=== PATIENT | female | born 1950 | race Caucasian/White ===

== ENCOUNTER → 2018-01-10 13:12 | Outpatient (CLI) | payer MEDICARE, OTHER, SELFPAY ==
[2018-01-10 13:55] LABS: Absolute Lymphocyte Count 1.48 X10^3/ul (0.83-4.51); Absolute Neutrophil Count 3.5 X10^3/uL (2.0-7.7); Basophil# 0.05 X10^3/uL; Basophil% 0.9 % (0-1); Eosinophil# 0.18 X10^3/uL; Eosinophils% 3.1 % (0-5); Hemoglobin 14.2 g/dl (12.0-15.0); Lymphocyte # 1.48 X10^3/ul (4.0); Lymphocyte % 25.8 % (19-41); Mean Corp Hgb Conc 32.3 g/gl (32-36); Mean Corpuscular Hgb 30.2 pg (27.0-32.0); Mean Corpuscular Volume 93.6 fL (81-99); Mean Platelet Vol. 9.2 fl (6.2-12.0); Monocyte# 0.54 X10^3/uL; Monocyte% 9.4 % (0-10); Neutrophil # 3.47 X10^3/uL (2.7-7.7); Neutrophil % 60.6 % (47-70); Platelet Count 191 K/mm3 (150-450); RBC Distribution Width CV 12.9 % (11.6-14.6); White Blood Count 5.7 K/mm3 (4.4-11.0)
[2018-01-10 14:01] LABS: POSITIVE COUNT NO; POSITIVE DIFFERENTIAL NO; POSITIVE MORPHOLOGY NO
[2018-01-10 14:15] LABS: Erythrocyte Sedimentation Rate 12 mm/hr (0-30)
[2018-01-10 14:25] LABS: PTHIN 104.6 pg/mL (18.4-80.1); Vitamin D,25 Hydroxy 17.9 ng/mL (29.95-100.01)
[2018-01-10 14:36] LABS: AST(SGOT) 22 U/L (15-37); Alanine Aminotransfer ALT/SGPT 25 U/L (13-56); Albumin, Serum 3.7 g/dL (3.2-5.0); Alkaline Phosphatase 78 U/L (45-117); Anion Gap 4 (5-15); BUN 17 mg/dL (7-18); BUN/Creat Ratio 23.8 RATIO (10-20); CPK Total, Creatine Kinase 92 U/L (26-192); CRP < 2.90 mg/L (0.0-3.0); Calcium,Total 8.5 mg/dL (8.5-10.1); Chloride 108 mmol/L (98-107); Creatinine, Serum 0.71 mg/dL (0.55-1.02); EST Glomerular Filtration Rate 87 mL/min (>60); Est Glom Filt Rate - Afr Amer 105 mL/min (>60); Globulin 3.7 g/dL (2.2-4.2); Glucose 91 mg/dL (74-106); Potassium 4.3 mmol/L (3.5-5.1); Protein, Total 7.4 g/dL (6.4-8.2); Rheumatoid Factor < 10.0 IU/mL (<15); Sodium Level 139 mmol/L (136-145); Thyroid Stim Hormone (TSH) 4.43 uIU/mL (0.358-3.74)
[2018-01-12 11:47] LABS: ANTINUCLEAR ANTIBODIES DIRECT Positive (Negative)
[2018-01-14 09:37] LABS: Anti-Centromere B Ab <0.2 AI (0.0-0.9); Anti-Chromatin <0.2 AI (0.0-0.9); Anti-Jo <0.2 AI (0.0-0.9); Anti-Scleroderma-70 AB <0.2 AI (0.0-0.9); Anti-ribosomal P Antibodies <0.2 AI (0.0-0.9); RNP Ab <0.2 AI (0.0-0.9); SJOGREN'S Anti-SS-A test < 0.2 AI (0.0-0.9); SJOGREN'S Anti-SS-B test < 0.2 AI (0.0-0.9); Smith Ab <0.2 AI (0.0-0.9); Smith/RNP Ab <0.2 AI (0.0-0.9)
[2018-01-14 13:15] LABS: Anti-dsDNA Ab 11 IU/mL (0-9)
== END ==
PROVIDERS: Family Provider Family Medicine; PCP Family Medicine; Visit Provider Family Medicine
DX: M25.50 Pain in unspecified joint (principal); R76.8 Other specified abnormal immunological findings in serum; E55.9 Vitamin D deficiency, unspecified; R53.83 Other fatigue
CPT/HCPCS: 36415; 80053; 82306; 82550; 83970; 84443; 85025; 85652; 86038; 86140; 86225; 86235; 86431

== ENCOUNTER → 2018-03-30 15:38 | Outpatient (CLI) | payer MEDICARE, OTHER, SELFPAY ==
--- NOTE | 2018-03-30 15:40 | BI_ITS ---
MAMMOGRAPHY - BILATERAL SCREENING REASON FOR EXAM: Female, 67 years old. Routine annual screening examination. PERTINENT HISTORY: Aunt with breast cancer. TECHNIQUE: Digital bilateral breast saima (3D mammographic acquisition) in the CC and MLO projections. 2-D mediolateral oblique (MLO) and craniocaudad (CC) views of both breasts were obtained. CAD: Full Field Digital Mammography with Computer Added Detection was performed. COMPARISON: Comparison is made with prior study dated March 24, 2017 and March 11, 2016. FINDINGS: Breast Composition: There are scattered areas of fibroglandular density. There are no dominant masses or suspicious calcifications. No other significant abnormalities are identified. There has been no significant change since the prior study. BI/SCREENING MAMM (CAD), BILAT IMPRESSION: Stable bilateral screening mammogram. Yearly follow-up mammogram recommended. (A) ASSESSMENT CATEGORY: BIRADS Category 1: Negative. A letter regarding these results will be sent to the patient by the facility within 30 days. Approximately 10% of breast cancers are not detected by mammography. A normal mammogram should not delay biopsy of a clinically suspicious abnormality. [id number] Electronically Signed: Philip Bose MD at 8:05 EDT Tel [phone], Service support ,
== END ==
PROVIDERS: Family Provider Family Medicine; PCP Family Medicine; Visit Provider Obstetrics & Gynecology
DX: Z12.31 Encounter for screening mammogram for malignant neoplasm of breast (principal)
CPT/HCPCS: 77063; 77067

== ENCOUNTER → 2018-04-04 10:44 | Outpatient (CLI) | payer MEDICARE, OTHER, SELFPAY ==
--- NOTE | 2018-04-04 10:47 | US_ITS ---
STUDY: ULTRASOUND TRANSVAGINAL CLINICAL: Female, 67 years old. Postmenopausal bleeding. TECHNIQUE: Transvaginal COMPARISON: None. FINDINGS: The uterus measures 4.6 x 3.4 x 2.1 cm. Anteverted position. Midline. Normal uterine cervix. Calcification within the anterior fundal myometrium measures 17 mm, likely a small calcified fibroid. The endometrium measures 3.2 mm in thickness, and is normal in echotexture. There is however a very small amount of free fluid within the endometrial canal. There is no demonstrated endometrial mass. The ovaries are not well seen. There is no visible adnexal mass or suspicious cyst. No cul-de-sac or adnexal free fluid. US/Transvaginal Non- IMPRESSION: Minimal pocket of fluid within the endometrial canal likely reflecting blood products in the setting of dysfunctional uterine bleeding. Otherwise normal thickness and echotexture of the endometrium, no suspicious features. No evidence of endometrial hypertrophy, mass, polyp, or submucosal fibroid. Electronically Signed: Santana Padgett, at 13:16 EDT Tel , Service support ,
== END ==
PROVIDERS: Family Provider Family Medicine; PCP Family Medicine; Visit Provider Obstetrics & Gynecology
DX: N95.0 Postmenopausal bleeding (principal)
CPT/HCPCS: 76830

== ENCOUNTER 2018-05-06 07:42 | Day surgery (SDC) | payer MEDICARE, OTHER, SELFPAY ==
[2018-05-02 13:30] LABS: Hematocrit 44.6 % (37-47); Hemoglobin 14.9 g/dl (12.0-15.0); Mean Corp Hgb Conc 33.4 g/gl (32-36); Mean Corpuscular Hgb 30.7 pg (27.0-32.0); Mean Corpuscular Volume 91.8 fL (81-99); Mean Platelet Vol. 10.4 fl (6.2-12.0); Platelet Count 200 K/mm3 (150-450); RBC Distribution Width CV 12.5 % (11.6-14.6); RBC Distribution Width SD 41.9 fl (35.1-43.9); Red Blood Count 4.86 M/mm3 (4.2-5.4)
[2018-05-02 13:37] LABS: Scan Indicated on CBC? Y/N NO
[2018-05-02 13:46] LABS: International Normalized Ratio 0.9; Prothrombin Time (Protime)PT. 12.5 SECONDS (11.7-14.9)
[2018-05-02 13:53] LABS: Partial Thromboplast Time 32.1 Seconds (24.1-36.2)
[2018-05-06 08:08] VITALS: BP 124/82; PULSE 70; RESP 18; TEMP 36.1; O2SAT 99; BMI 56.4
--- NOTE | 2018-05-06 09:20 | EMB_PTH ---
PATIENT: HETAL SINGH LOC: [facility] [place] U#:[id number] AGE/SX: 67/F ROOM: RE05/06/[address]: Dr. Shiloh Valencia MD : 1950 BED: DIS: 05/06/2018 SPEC #: [id number] RECD: 05/06/18 11:13 STATUS: LUCERO JEAN #: [id number] SILVIA: 05/06/18 09:[address]: Shiloh Valencia DEPT: SURGICAL PATHOLOGY RECD BY: Santana Montenegro ENTERED: 05/06/18 12:03 SP TYPE: ENDOM BX/C DAMION DR: Dr. Josias Knowles MD Tissues: Endometrium, NOS Procedures: Surgery Specimen Level IV HEADER OPERATION: Hysteroscopy, dilation and curettage PRE-OP DIAGNOSIS: Postmenopausal bleeding TISSUE SUBMITTED: Endometrium MICROSCOPIC DIAGNOSIS Endometrium, dilation and curettage: Scant strips of benign endometrial epithelium, consistent with atrophic endometrium. A fragment of benign endometrial polyp with cystic change. Scant fragment of benign ectocervical epithelium and mucous. SUZY:drew 05/09/18 MICROSCOPIC DESCRIPTION Slides are reviewed. GROSS DESCRIPTION Received in fixative is one container labeled with the patient's name and designated endometrium. The specimen consists of multiple fragments of hemorrhagic soft tissue that in aggregate measure 0.5 x 0.5 x 0.1 cm. The specimen is totally submitted in one cassette. / SUZY:drew 05/06/18 TC:5 CPT: 31589
--- NOTE | 2018-05-06 09:50 | PCM.OPRPT ---
Problem List (1) Postmenopausal bleeding Status: Acute Report of Operation Date of Procedure: 05/06/18 Pre-Operative Diagnosis: Postmenopausal bleeding Post-Operative Diagnosis: Postmenopausal bleeding Surgery/Procedure Performed:: D and C with diagnostic hysteroscopy and polypectomy Description of Surgical Findings:: The uterus was sounded to 7-8 cm in position. No cavity it was noted that a polyp-like. Follow-up right and the endometrium. The like were unable to relocate on replacement of hysteroscope. It appeared initially as if there were areas in the endometrium had a medical coloring. Again upon reinsertion of atrium were unable to visualize and actually area. Type of Anesthesia:: Local, MAC Anesthesiologist: Yann Hernandez Special Medications: 10 cc of 1% lidocaine Specimen's removed: endometrium Drains: None Estimated Blood Loss (mL): Minimal Fluids Replaced: Lactated Ringer's Description of Procedure: Patient presented to the OR in a n.p.o. Patient was placed on the surgical bed and underwent a MAC. Is position via the patient was in the normal sterile fashion. A weighted speculum was placed to the vaginal region. The anterior lip of the cervix was grasped and elevated with a single-tooth tenaculum 10 cc of 1% lidocaine was distributed. Procedure well the fully dilated in the uterine 7-8 cm once the cervix was adequately dilated a 5 mm hysteroscope, hysteroscope was drilled cavity. Structure was noted immediately in the posterior surface of the endocervical atrial cavity. Sharp curettage of the entire endometrial cavity polyp forceps actually removed that polyp-like material. Upon placement of the hysteroscope into the endometrial cavity once again, the notation of removal was noted also ran into what appeared to be a wire-like structure tissue around it and was freely floating in the endometrial removed open placement of forceps hysteroscope into the endometrial cavity revealed that piece of wire like density disappeared. Investigation was around the cavity occurred with no location for the. Light brushing over the endometrium did not reveal and eventually this to cause too much fluid instruments were removed from the uterus hemostasis was noted. Sponge and instrument counts were correct ?2 Grafts/Implants Used: None - Complications None - Admit VTE Documentation VTE Present on Admission: No VTE Mechan Device Prophylaxis: SCD's VTE Pharm Prophylaxis ordered?: No Reason prophylaxis not ordered:: Treatment Not Indicated
--- NOTE | 2018-05-06 09:57 | PCM.DC.D&C ---
Discharge Diet: No Restrictions - increase water intake to 100 ounces daily x 72 hours Discharge Activity: Return to Normal Activity, May Shower, May Take a Tub Bath - in 2 weeks. Return to work on:: 05/09/18 May shower in (days): 0 - TODAY May resume sexual activity in: 1 week Weight Bearing Status: Full weight bearing Lifting Restrictions: none Additional Activity Instructions:: Ambulate often the week following surgery Call your doctor if your incision/area has: Sudden Increased Bleeding Call your doctor if you observe: Fever of 101 or Higher, Inability to urinate, Inability to have a bowel movement, Using more than one pad per hour Allergies/Adverse Reactions: Allergies Tetracyclines Adverse Reaction (Verified 04/29/18 10:09) Nausea Medications to take at Discharge NK [NK] 04/29/18 Primary Care Physician: Josias Knowles MD [Primary Care Provider] - Please Follow Up With: Shilho Valencia MD When: 2 weeks
[2018-05-06 09:58] VITALS: BP 101/74; BP 124/82; PULSE 88; RESP 16; TEMP 36.4; O2SAT 100
[2018-05-06 10:05] VITALS: BP 124/82; BP 97/63; PULSE 65; RESP 16; O2SAT 99
[2018-05-06 10:10] VITALS: BP 106/69; BP 124/82; PULSE 65; RESP 16; O2SAT 99
[2018-05-06 10:15] VITALS: BP 104/71; BP 124/82; PULSE 65; RESP 14; TEMP 36.3; O2SAT 100
[2018-05-06 10:52] LABS: Anion Gap 2 (5-15); BUN 8 mg/dL (7-18); Calcium,Total 8.6 mg/dL (8.5-10.1); Chloride 109 mmol/L (98-107); Creatinine, Serum 1.34 mg/dL (0.55-1.02); EST Glomerular Filtration Rate 42 mL/min (>60); Est Glom Filt Rate - Afr Amer 51 mL/min (>60); Estimated Creatinine Clearance 38.14 ml/min; Glucose 90 mg/dL (74-106); Potassium 4.5 mmol/L (3.5-5.1); Sodium Level 140 mmol/L (136-145)
--- NOTE | 2018-05-06 10:56 | PCM.PN.BLA ---
Progress Note 240cc normal saline deficit from hysteroscopy. BMP for electrolyte exam obtained due to age. Stable.
[2018-05-06 10:58] VITALS: BP 124/82
== END 2018-05-06 11:06 | disposition home or self-care (01) ==
LOC: SDC 07:43 → AC 07:44
PROVIDERS: Family Provider Family Medicine; PCP Family Medicine; Visit Provider Obstetrics & Gynecology
PROC: 0UDB8ZZ Extraction of Endometrium, Via Natural or Artificial Opening Endoscopic (ICD-10-PCS; CPT 58558; principal; 2018-05-06 09:10)
DX: N84.0 Polyp of corpus uteri (principal); F32.9 Major depressive disorder, single episode, unspecified; F17.200 Nicotine dependence, unspecified, uncomplicated; Z87.42 Personal history of other diseases of the female genital tract; Z86.2 Personal history of diseases of the blood and blood-forming organs and certain disorders involving the immune mechanism; Z79.899 Other long term (current) drug therapy
CPT/HCPCS: 58558; 36415; 80048; 85027; 85610; 85730; 88305; J7120; J2405

== ENCOUNTER → 2018-06-02 13:03 | Outpatient (CLI) | payer MEDICARE, OTHER, SELFPAY ==
--- NOTE | 2018-06-02 13:10 | RAD_ITS ---
STUDY: X-RAY CHEST REASON FOR EXAM: Female, 67 years old. Pre-op bladder resuspension. TECHNIQUE: Frontal and lateral views of the chest. COMPARISON: None. FINDINGS: The lungs are clear and expanded. There is no demonstrated pleural abnormality. Normal size heart. Normal mediastinum and elayne. Normal visualized pulmonary arteries. Normal visualized aortic arch and descending thoracic aorta. Normal visualized thoracic spine. Normal visualized ribs, clavicles, and shoulders. There is no demonstrated abnormality of the visualized soft tissue structures of the upper abdomen. RAD/Chest PA and Lateral IMPRESSION: Normal x-ray examination of the chest. Electronically Signed: Shiraz Guerin MD at 19:35 EDT , Service support ,
== END ==
PROVIDERS: Family Provider Family Medicine; PCP Family Medicine; Visit Provider Nurse Practitioner
DX: Z01.818 Encounter for other preprocedural examination (principal); R05 Cough
CPT/HCPCS: 71046

== ENCOUNTER 2018-06-07 08:21 | Day surgery (SDC) | payer MEDICARE, OTHER, SELFPAY ==
--- NOTE | 2018-06-01 10:56 | EKG12_ITS ---
Test Reason : PRE OP Blood Pressure : / mmHG Vent. Rate : 069 BPM Atrial Rate : 069 BPM P-R Int : 158 ms QRS Dur : 068 ms QT Int : 392 ms P-R-T Axes : 072 059 057 degrees QTc Int : 420 ms Normal sinus rhythm Biatrial enlargement Abnormal ECG Confirmed by RUSH DAVISON, PITER ([id number]), deputy editor in chief CHARLOTTE GRAHAM ([id number]) on 06/03/2018 1:43:34 PM Referred By: Bibi Coy Confirmed By:PITER BEVERLY MD
[2018-06-01 17:18] LABS: Hematocrit 43.4 % (37-47); Hemoglobin 14.6 g/dl (12.0-15.0); Mean Corp Hgb Conc 33.6 g/gl (32-36); Mean Corpuscular Hgb 30.7 pg (27.0-32.0); Mean Corpuscular Volume 91.4 fL (81-99); Mean Platelet Vol. 10.3 fl (6.2-12.0); Platelet Count 212 K/mm3 (150-450); RBC Distribution Width CV 12.7 % (11.6-14.6); RBC Distribution Width SD 41.9 fl (35.1-43.9); Red Blood Count 4.75 M/mm3 (4.2-5.4); White Blood Count 5.6 K/mm3 (4.4-11.0)
[2018-06-01 17:24] LABS: Scan Indicated on CBC? Y/N NO
[2018-06-01 18:42] LABS: Anion Gap 7 (5-15); BUN 12 mg/dL (7-18); BUN/Creat Ratio 15.2 RATIO (10-20); Calcium,Total 9.3 mg/dL (8.5-10.1); Chloride 107 mmol/L (98-107); Creatinine, Serum 0.79 mg/dL (0.55-1.02); EST Glomerular Filtration Rate 77 mL/min (>60); Est Glom Filt Rate - Afr Amer 94 mL/min (>60); Glucose 92 mg/dL (74-106); Potassium 3.8 mmol/L (3.5-5.1); Sodium Level 143 mmol/L (136-145)
[2018-06-07 08:40] VITALS: BP 136/71; PULSE 78; RESP 16; TEMP 36.1; O2SAT 98; BMI 25.0
--- NOTE | 2018-06-07 09:41 | PCM.DC.URO ---
Discharge Activity: May not drive while taking narcotic pain medications., May Shower May resume sexual activity in: 4-6 weeks Lifting Restrictions: no more than 5 pounds for 4 weeks Additional Activity Instructions:: no exercise or strenuous activity Call your doctor if your incision/area has: Sudden Increased Bleeding Call your doctor if you observe: Fever of 101 or Higher, Inability to urinate, Inability to have a bowel movement, Using more than one pad per hour, Shortness of breath, Chest pain Allergies/Adverse Reactions: Allergies Tetracyclines Adverse Reaction (Verified 05/31/18 08:54) Nausea Medications to take at Discharge NK [NK] 04/29/18 Primary Care Physician: Josias Knowles MD [Primary Care Provider] - Test Results: Test results from this visit will be discussed in further detail at your follow-up appointment, if applicable. Please Follow Up With: Bibi Coy MD - in 2 weeks, call for appt
--- NOTE | 2018-06-07 09:44 | DCINST_ITS ---
Discharge Activity: May not drive while taking narcotic pain medications., May Shower May resume sexual activity in: 4-6 weeks Lifting Restrictions: no more than 5 pounds for 4 weeks Additional Activity Instructions:: no exercise or strenuous activity Call your doctor if your incision/area has: Sudden Increased Bleeding Call your doctor if you observe: Fever of 101 or Higher, Inability to urinate, Inability to have a bowel movement, Using more than one pad per hour, Shortness of breath, Chest pain Allergies/Adverse Reactions: Allergies Tetracyclines Adverse Reaction (Verified 05/31/18 08:54) Nausea Medications to take at Discharge NK [NK] 04/29/18 Primary Care Physician: Josias Knowles MD [Primary Care Provider] - Test Results: Test results from this visit will be discussed in further detail at your follow- up appointment, if applicable. Please Follow Up With: Bibi Coy MD - in 2 weeks, call for appt
[2018-06-07] MEDS: Cefazolin 2 GM in 0.9% Normal Saline 100 ML IV (09:51)
[2018-06-07 10:35] VITALS: BP 123/72; BP 136/71; PULSE 79; RESP 15; TEMP 36.4; O2SAT 96
--- NOTE | 2018-06-07 10:44 | PCM.IMDPSTOP ---
Immediate Post-Op Note Date of Procedure: 06/07/18 Primary Surgeon/Physician: Bibi Coy MD leather goods sales representative: Bibi Coy Pre-Operative Diagnosis: stress urinary incontinence, urethral hypermobility Post-Operative Diagnosis: same Surgery/Procedure Performed:: midurethral sling (Altis), cystoscopy Description of Surgical Findings:: Mid urethral sling was inserted without difficulty with no complication. Estimated Blood Loss: 10cc Specimen's removed: none Type of Anesthesia:: General - Admit VTE Documentation VTE Mechan Device Prophylaxis: SCD's Reason prophylaxis not ordered:: Treatment Not Indicated
[2018-06-07 10:45] VITALS: BP 123/95; BP 136/71; PULSE 78; RESP 16; O2SAT 98
--- NOTE | 2018-06-07 10:46 | PCM.OPRPT ---
Problem List (1) GARY (stress urinary incontinence, female) Status: Acute (2) Urethral hypermobility Status: Acute Report of Operation Date of Procedure: 06/07/18 Pre-Operative Diagnosis: stress urinary incontinence, urethral hypermobility Post-Operative Diagnosis: same Surgery/Procedure Performed:: midurethral sling (Altis), cystoscopy Description of Surgical Findings:: Mid urethral sling was inserted without difficulty with no complication. telecommunications equipment installer: Bibi Coy Type of Anesthesia:: General Specimen's removed: none Estimated Blood Loss (mL): 10cc Description of Procedure: Patient is a 67-year-old female who presented to the office with mixed urinary incontinence. After discussing risks, benefits and alternatives she agreed to proceed with surgical intervention for treatment of her stress urinary incontinence. The patient was taken to the operating room placed on the operating room table anesthesia monitored the head neck area IV access of vital signs throughout the case. Once anesthesia was appropriately administered the patient was placed into the dorsal lithotomy and Trendelenburg position. She was prepped and draped in usual sterile fashion. An 18 Irish Higgins catheter was inserted into the urinary bladder and the urine was drained. At this time using a Venegas retractor the mid urethra was identified and injected submucosally with 1% lidocaine with epinephrine in a 1:100,000 ratio. 4 cc were injected. At this time and midline incision approximately 1.5 cm in length was then made and both sharp and blunt dissection ensued until the obturator complexes were palpable bilaterally. At this time the sling was inserted using the trochars. It was tightened without difficulty and was manipulated until it was in a good position against the urethra and a flat position. The tensioning suture was then cut and the midline incision was closed using running interlocking 2-0 Vicryl suture. At this time the Higgins was removed and a cystourethroscopy was performed revealing no entrance into the urinary bladder of any foreign object including stitch or mesh. The patient's anatomy was normal. Her bladder was left somewhat full and the scope was removed. She was then awakened and taken to the recovery room in a good condition where she will void and a postvoid residual will be obtained. - Complications None - Admit VTE Documentation VTE Mechan Device Prophylaxis: SCD's Reason prophylaxis not ordered:: Treatment Not Indicated
[2018-06-07 10:55] VITALS: BP 114/73; BP 136/71; PULSE 78; RESP 16; TEMP 37.1; O2SAT 100
[2018-06-07] MEDS: Acetaminophen 325 MG Tablet PO (11:32)
[2018-06-07] MEDS: oxyCODONE 5 MG Tablet PO (11:32)
[2018-06-07 12:39] VITALS: BP 112/67; BP 136/71; PULSE 69; RESP 16; TEMP 36.6; O2SAT 96
== END 2018-06-07 12:41 | disposition home or self-care (01) ==
LOC: SDC 08:22 → AC 08:22
PROVIDERS: Family Provider Family Medicine; PCP Family Medicine; Visit Provider Urology
PROC: 0TJB8ZZ Inspection of Bladder, Via Natural or Artificial Opening Endoscopic (ICD-10-PCS; CPT 57288; principal; 2018-06-07 09:40)
DX: N39.46 Mixed incontinence (principal); N36.41 Hypermobility of urethra; R35.1 Nocturia; R35.0 Frequency of micturition; F17.210 Nicotine dependence, cigarettes, uncomplicated; Z86.2 Personal history of diseases of the blood and blood-forming organs and certain disorders involving the immune mechanism
CPT/HCPCS: 00860; 57288; 36415; 80048; 85027; 93005; J7120; J2405

== ENCOUNTER → 2018-11-04 11:03 | Outpatient (CLI) | payer MEDICARE, OTHER, SELFPAY ==
[2018-11-04 12:11] LABS: Erythrocyte Sedimentation Rate 10 mm/hr (0-30)
[2018-11-04 12:15] LABS: Absolute Lymphocyte Count 1.35 X10^3/ul (0.83-4.51); Absolute Neutrophil Count 4.5 X10^3/uL (2.0-7.7); Basophil# 0.07 X10^3/uL; Basophil% 1.1 % (0-1); Eosinophil# 0.13 X10^3/uL; Hematocrit 45.1 % (37-47); Hemoglobin 14.7 g/dl (12.0-15.0); Lymphocyte # 1.35 X10^3/ul (4.0); Lymphocyte % 20.6 % (19-41); Mean Corp Hgb Conc 32.6 g/gl (32-36); Mean Corpuscular Hgb 30.9 pg (27.0-32.0); Mean Corpuscular Volume 94.9 fL (81-99); Mean Platelet Vol. 9.8 fl (6.2-12.0); Monocyte# 0.46 X10^3/uL; Neutrophil # 4.53 X10^3/uL (2.7-7.7); Neutrophil % 69.1 % (47-70); Platelet Count 200 K/mm3 (150-450); RBC Distribution Width CV 12.9 % (11.6-14.6); RBC Distribution Width SD 43.8 fl (35.1-43.9); Red Blood Count 4.75 M/mm3 (4.2-5.4); White Blood Count 6.6 K/mm3 (4.4-11.0)
[2018-11-04 12:16] LABS: POSITIVE COUNT NO; POSITIVE DIFFERENTIAL NO; POSITIVE MORPHOLOGY NO
[2018-11-04 12:54] LABS: ALB/GLOB Ratio 1.1 RATIO (0.9-2.4); AST(SGOT) 17 U/L (15-37); Alanine Aminotransfer ALT/SGPT 21 U/L (13-56); Albumin, Serum 3.7 g/dL (3.2-5.0); Alkaline Phosphatase 74 U/L (45-117); Anion Gap 8 (5-15); BUN 17 mg/dL (7-18); CRP < 2.90 mg/L (0.0-3.0); Calcium,Total 8.7 mg/dL (8.5-10.1); Chloride 106 mmol/L (98-107); Creatinine, Serum 0.74 mg/dL (0.55-1.02); EST Glomerular Filtration Rate 83 mL/min (>60); Est Glom Filt Rate - Afr Amer 101 mL/min (>60); Globulin 3.4 g/dL (2.2-4.2); Glucose 96 mg/dL (74-106); Potassium 4.3 mmol/L (3.5-5.1); Protein, Total 7.1 g/dL (6.4-8.2); Sodium Level 141 mmol/L (136-145); Thyroid Stim Hormone (TSH) 2.39 uIU/mL (0.358-3.74)
== END ==
PROVIDERS: Family Provider Family Medicine; PCP Family Medicine; Referring Provider Family Medicine; Visit Provider Family Medicine
DX: M25.50 Pain in unspecified joint (principal); R29.898 Other symptoms and signs involving the musculoskeletal system
CPT/HCPCS: 36415; 80053; 84443; 85025; 85652; 86140

== ENCOUNTER → 2018-11-18 15:27 | Outpatient (CLI) | payer MEDICARE, OTHER, SELFPAY ==
--- NOTE | 2018-11-18 15:31 | RAD_ITS ---
STUDY: X-RAY CHEST REASON FOR EXAM: Female, 67 years old. Acute bronchitis. TECHNIQUE: PA and lateral views of the chest. COMPARISON: 06/02/2018. FINDINGS: The lungs again are hyperinflated. No focal infiltrate is seen. There is no demonstrated pleural abnormality. Normal size heart. Normal mediastinum and elayne. Normal visualized pulmonary arteries. There is atherosclerotic tortuosity of the aortic arch and descending thoracic aorta. There are degenerative changes of the visualized thoracic spine. There is mild scoliosis. There is fracture of the left clavicle appears to be old. There is no demonstrated abnormality of the visualized soft tissue structures of the upper abdomen. RAD/Chest PA and Lateral IMPRESSION: No active pulmonary disease. Electronically Signed: Lauri Soto MD at 15:26 EST Tel , Service support ,
== END ==
PROVIDERS: Family Provider Family Medicine; PCP Family Medicine; Referring Provider Family Medicine; Visit Provider Family Medicine
DX: J02.9 Acute pharyngitis, unspecified (principal)
CPT/HCPCS: 71046

== ENCOUNTER → 2019-04-24 | Outpatient (CLI) | payer MEDICARE, OTHER, SELFPAY ==
--- NOTE | 2019-04-24 13:02 | BI_ITS ---
MAMMOGRAPHY - BILATERAL SCREENING REASON FOR EXAM: Female, 68 years old. Routine annual screening examination. PERTINENT HISTORY: Aunt with breast cancer. TECHNIQUE: Digital bilateral breast miguel ángel (3D mammographic acquisition) in the CC and MLO projections. 2-D mediolateral oblique (MLO) and craniocaudad (CC) views of both breasts were obtained. CAD: Full Field Digital Mammography with Computer Added Detection was performed. COMPARISON: Comparison is made with prior examination dated March 30, 2018 and March 24, 2017. FINDINGS: Breast Composition: There are scattered areas of fibroglandular density. There are no dominant masses or suspicious calcifications. No other significant abnormalities are identified. There has been no significant change since the prior study. BI/SCREEN MAMM (CAD) W/MIGUEL ÁNGEL BILAT IMPRESSION: Stable bilateral screening mammogram. Yearly follow-up mammogram recommended. (A) ASSESSMENT CATEGORY: BIRADS Category 1: Negative. A letter regarding these results will be sent to the patient by the facility within 30 days. Approximately 10% of breast cancers are not detected by mammography. A normal mammogram should not delay biopsy of a clinically suspicious abnormality. [id number] Electronically Signed: Philip Bose, at 14:06 EDT , Service support ,
== END | disposition home or self-care (01) ==
LOC: OPBI 13:00
PROVIDERS: Family Provider Family Medicine; PCP Family Medicine; Referring Provider Obstetrics & Gynecology; Visit Provider Obstetrics & Gynecology
DX: Z12.31 Encounter for screening mammogram for malignant neoplasm of breast (principal)
CPT/HCPCS: 77063; 77067

== ENCOUNTER 2019-09-27 15:19 | Emergency (ER) | payer MEDICARE, OTHER, SELFPAY ==
[2019-09-27 15:19] VITALS: BP 141/96; PULSE 91; RESP 16; TEMP 36.7; O2SAT 97; BMI 24.5
[2019-09-27 15:22] VITALS: BP 141/96; PULSE 91; RESP 16; TEMP 36.7; O2SAT 97
--- NOTE | 2019-09-27 15:55 | RAD_ITS ---
STUDY: X-RAY CHEST REASON FOR EXAM: Female, 68 years old. Cough. TECHNIQUE: PA and lateral views of the chest. COMPARISON: November 18, 2018 FINDINGS: The lungs remain hyperinflated. There is no new focal consolidation. There are stable prominent interstitial markings. Normal size heart. Normal mediastinum and elayne. Normal visualized pulmonary arteries. Normal visualized aortic arch and descending thoracic aorta. Normal visualized thoracic spine. Stable visualized ribs, clavicles, and shoulders. There are stable coarse calcifications projecting over the right axilla. There is no demonstrated abnormality of the visualized soft tissue structures of the upper abdomen. RAD/Chest PA and Lateral IMPRESSION: No acute cardiopulmonary process. Electronically Signed: Kassie Camacho MD at 16:12 EST Tel , Service support ,
[2019-09-27] MEDS: predniSONE 20 MG Tablet 40 MG PO (15:56)
[2019-09-27 16:15] VITALS: PULSE 70; RESP 20
[2019-09-27] MEDS: Ipratropium/Albuterol Sulfate 3 ML AMPUL.NEB INHALATION (16:18)
--- NOTE | 2019-09-27 16:22 | ED.DCSUM_ITS ---
- ER Visit Summary Date of Service: 09/27/19 Chief Complaint: Cough] History of Present Illness: The patient is a 68 F [presents to the emergency department with cough dysarthria 4 days ago. Patient had fever at home up to 102 but she states that her fever broke last night. Patient has been at times bringing up some white phlegm. Patient states that her daughter and granddaughter both diagnosed recently with bronchitis and viral infection. Patient is a smoker. She has no metal history otherwise. Patient states the cough is been keeping her up at night she is been having hard time sleeping. She does have an inhaler that she had used from the last time she had bronchitis.] Physical Examination: [HEENT-PERRLA, EOMI. Cranial nerves II through XII grossly intact. TMs clear. Mucous membranes moist. No adenopathy. Cardiovascular-regular rate and rhythm without murmur or ectopy Lungs-good aeration bilaterally. Patient has some [place] with Tory wheezes bilaterally. No tachypnea. No accessory muscle use or retractions. Conversational dyspnea. Abdomen-normoactive bowel sounds, soft, nontender, no rebound or rigidity, no peritoneal signs. Extremities-intact ?4, normal range of motion, normal pulses, atraumatic] Test Results: Chest x-ray obtained was normal.] Emergency Department Course and Treatment: [Patient was given a DuoNeb aerosol and a dose of prednisone 40 mill grams p.o.] Treatment Plan: [Will be given a prescription for prednisone and Tessalon Perles. Patient advised to continue with her inhaler as needed for wheezing. Patient to follow-up with her primary care physician within next 3 to 5 days. Patient advised to return if increasing shortness of breath or condition should worsen anyway.] Disposition: [Discharged home in stable condition.] Impression: [Asthmatic bronchitis-viral] This note was generated with [employer] software. It may contain incorrect words, spelling, and punctuation that were not noted in review of the chart prior to signing ED Disposition - Plan for ED Patient: Referrals: Josias Knowles MD [Primary Care Provider] -
--- NOTE | 2019-09-27 16:25 | ED.DEP ---
ED Disposition - Plan for ED Patient: Instructions: BRONCHITIS, No Antibiotic (Adult), BRONCHITIS with Wheezing (Adult) Prescriptions: Prednisone [Deltasone] 20 mg PO BID #10 tab Prescription Printed Benzonatate [Tessalon Perle] 200 mg PO TID PRN PRN #20 cap PRN Reason: Cough Prescription Printed Referrals: Josias Knowles MD [Primary Care Provider] - 3-5 Days
--- NOTE | 2019-09-27 16:51 | ED.RN ---
DISCHARGE INSTRUCTIONS GIVEN TO AND REVIEWED WITH PATIENT, PATIENT DENIES QUESTIONS OR CONCERNS AND VOICES UNDERSTANDING OF DISCHARGE INSTRUCTIONS. PT AMBULATES OUT OF ROOM WITHOUT DIFFICULTY.
== END 2019-09-27 16:51 | disposition home or self-care (01) ==
LOC: ED 16:10
PROVIDERS: Emergency Provider Emergency Medicine; Family Provider Family Medicine; PCP Family Medicine
DX: J45.909 Unspecified asthma, uncomplicated (principal); Z72.0 Tobacco use
CPT/HCPCS: 71046; 94640; 99283

== ENCOUNTER → 2019-11-13 11:28 | Outpatient (CLI) | payer MEDICARE, OTHER, SELFPAY ==
[2019-11-13 14:44] LABS: Free T3 3.1 pg/mL (2.18-3.98); Thyroid Stim Hormone (TSH) 2.96 uIU/mL (0.358-3.74)
== END ==
PROVIDERS: Family Provider Family Medicine; PCP Family Medicine; Referring Provider Nurse Practitioner Adult Health; Visit Provider Nurse Practitioner Adult Health
DX: R53.83 Other fatigue (principal)
CPT/HCPCS: 36415; 84443; 84481

== ENCOUNTER → 2019-12-13 13:25 | Outpatient (CLI) | payer MEDICARE, OTHER, SELFPAY ==
--- NOTE | 2019-12-13 13:30 | RAD_ITS ---
STUDY: X-RAY - PELVIS REASON FOR EXAM: Female, 69 years old. pelvis broken in 2015; continued pain and pressure since TECHNIQUE: One view of the pelvis was obtained. COMPARISON: None. FINDINGS: There is a non-specific bowel gas pattern. Normal visualized soft tissue structures. There is stabilization with 2 screws of the SI joints. There is a fixation plate with multiple screws traversing the left and right inferior and superior pubic rami. Normal pubic symphysis. Normal ischial tuberosities. Normal visualized right femoral head. Normal right acetabulum. Normal right hip joint. Normal visualized left femoral head. Normal left acetabulum. Normal left hip joint. RAD/Pelvis 1 or 2 Views IMPRESSION: Orthopedic hardware of the pelvis as detailed above. There is no evidence of acute fracture or lytic or blastic osseous process. There appear to be old fractures of the inferior and superior left and right pubic rami. The left and right hip joints appear within normal limits. Electronically Signed: Michael Prince MD at 17:52 EST , Service support ,
--- NOTE | 2019-12-13 13:30 | RAD_ITS ---
STUDY: X-RAY - LUMBAR SPINE REASON FOR EXAM: Female, 69 years old. low back pain and pressure since 2014 TECHNIQUE: 3 view(s) of the lumbar spine were obtained. COMPARISON: Prior study of 03/12/2015 FINDINGS: Normal lumbar lordosis. There is no substantial scoliosis. There is a normal alignment of the vertebrae. Normal vertebral bodies and endplates. Normal disc space heights. The soft tissue structures are unremarkable. RAD/Lumbar Spine 2 or 3 Views IMPRESSION: Normal x-ray examination of the lumbar spine. Orthopedic hardware of the pelvis is again noted. Electronically Signed: Michael Prince MD at 17:55 EST , Service support ,
== END ==
PROVIDERS: PCP Family Medicine; Referring Provider Anesthesiology Pain Medicine; Visit Provider Anesthesiology Pain Medicine
DX: M54.9 Dorsalgia, unspecified (principal); R10.2 Pelvic and perineal pain
CPT/HCPCS: 72100; 72170

== ENCOUNTER → 2020-01-18 | Outpatient (CLI) | payer MEDICARE, OTHER, SELFPAY ==
[2020-01-18 11:51] LABS: Amphetamine Urine VISTA NEGATIVE (<1000 ng/mL); Barbiturate Urine VISTA NEGATIVE (< 200 ng/mL); Benzodiazepine Urine VISTA NEGATIVE (< 200 ng/mL); Cocaine Urine VISTA NEGATIVE (< 300 ng/mL); Ecstacy Urine VISTA NEGATIVE (< 500 ng/mL); Methadone Urine VISTA NEGATIVE (< 300 ng/mL); PCP Urine VISTA NEGATIVE (< 25 ng/mL); THC Urine VISTA POSITIVE (< 50 ng/mL); Vista UDS pH Range 5
== END | disposition home or self-care (01) ==
LOC: LAB 10:01
PROVIDERS: PCP Family Medicine; Referring Provider Anesthesiology Pain Medicine; Visit Provider Anesthesiology Pain Medicine
DX: F11.20 Opioid dependence, uncomplicated (principal)
CPT/HCPCS: 80307

== ENCOUNTER → 2020-05-14 | Outpatient (CLI) | payer MEDICARE, OTHER, SELFPAY ==
[2020-05-14 09:32] LABS: Absolute Lymphocyte Count 1.83 X10^3/uL (0.83-4.51); Absolute Neutrophil Count 2.6 X10^3/uL (2.0-7.7); Basophil# 0.09 X10^3/uL; Basophil% 1.8 % (0-1); Eosinophil# 0.13 X10^3/uL; Eosinophils% 2.6 % (0-5); Hematocrit 45.4 % (37-47); Hemoglobin 14.5 g/dL (12.0-15.0); Lymphocyte # 1.83 X10^3/ul (4.0); Lymphocyte % 36.3 % (19-41); Mean Corp Hgb Conc 31.9 g/dL (32-36); Mean Platelet Vol. 9.4 fl (6.2-12.0); Monocyte% 7.9 % (0-10); NRBC Flagged by Analyzer 0 % (0-5); Neutrophil # 2.58 X10^3/uL (2.7-7.7); Neutrophil % 51.2 % (47-70); Platelet Count 170 K/mm3 (150-450); RBC Distribution Width CV 12.6 % (11.6-14.6); RBC Distribution Width SD 44.8 fl (35.1-43.9); Red Blood Count 4.68 M/mm3 (4.2-5.4)
[2020-05-14 09:43] LABS: Internal QC Validated? YES +Cl - CLEAR BKGD; Pregnancy, Serum, hCG Quali. NEGATIVE Negative
[2020-05-14 09:47] LABS: Anion Gap 4 (5-15); BUN 10 mg/dL (7-18); BUN/Creat Ratio 11.5 RATIO (10-20); Calcium,Total 8.5 mg/dL (8.5-10.1); Chloride 108 mmol/L (98-107); Creatinine, Serum 0.87 mg/dL (0.55-1.02); EST Glomerular Filtration Rate 69 mL/min (>60); Est Glom Filt Rate - Afr Amer 83 mL/min (>60); Glucose 106 mg/dL (74-106); Potassium 3.6 mmol/L (3.5-5.1); Sodium Level 142 mmol/L (136-145)
--- NOTE | 2020-05-14 16:10 | PCM.TILTTABL ---
- Staff Staff: Kell Lucero, - - Leticia Iqbal - Summary Pre Test Resting HR: 75 - Alert and oriented: Warm and dry Pre Test Resting BP: 151/72 - Alert and oriented: Warm and dry Minimum Test HR: 71 - Alert and oriented: Warm and dry Maximum Test HR: 112 - Alert and oriented: Warm and dry Minimum Test BP: 98/63 - Alert and oriented: Warm and dry Maximum Test BP: 124/59 - Alert and oriented: Warm and dry Reason for Test Termination: Reached Maximum Test Time Physician Tilt Table Report - Patient's Physicians Primary Care Physician: Josias Knowles Photographic Developer And Printer: Roshan Whittington Indications/Diagnosis: Lightheadedness Procedure Comments: The patient was brought to the tilt table laboratory and laid supine on the tilt table. The patient was alert and oriented and warm and pink. The baseline heart rate was 75 bpm with a baseline blood pressure 151/72 mmHg. The cardiac rhythm was normal sinus rhythm. The patient was placed in the 70 degree heads up tilt table position for 30 minutes. The patient remained alert and oriented and warm and dry. The patient remained in normal sinus rhythm/sinus tachycardia. The patient complained of slight nausea at the initiation of the study and no complaints at the termination of the study. The patient did not lose consciousness. The patient was returned to the supine position. The patient was subsequently monitored in the supine position. The patient remained alert and oriented and warm and dry. The patient had a concluding heart rate of 100 bpm with a concluding blood pressure 142/67 mmHg. The patient remained in sinus rhythm. The patient had no other complaints. The patient was subsequently released from the tilt table laboratory. Summary: The degree upright tilt table study considered negative for reproducible near syncope/syncope.
[2020-05-14 16:18] VITALS: BP 124/59; BP 151/72; BP 98/63
== END | disposition home or self-care (01) ==
PROVIDERS: PCP Family Medicine; Referring Provider Family Medicine; Visit Provider Family Medicine
DX: R42 Dizziness and giddiness (principal)
CPT/HCPCS: 36415; 80048; 84703; 85025; 93660; J7040; A4216

== ENCOUNTER → 2020-06-11 | Outpatient (CLI) | payer MEDICARE, OTHER, SELFPAY ==
--- NOTE | 2020-06-11 15:23 | BI_ITS ---
MAMMOGRAPHY - BILATERAL SCREENING REASON FOR EXAM: Female, 69 years old. Routine annual screening examination. PERTINENT HISTORY: Aunt with breast cancer. TECHNIQUE: Digital bilateral breast miguel ángel (3D mammographic acquisition) in the CC and MLO projections. 2-D mediolateral oblique (MLO) and craniocaudad (CC) views of both breasts were obtained. CAD: Full Field Digital Mammography with Computer Added Detection was performed. COMPARISON: Comparison is made with prior study dated 04/24/2019 and 03/30/2018. FINDINGS: Breast Composition: There are scattered areas of fibroglandular density. There are no dominant masses or suspicious calcifications. Stable calcifications in the right axillary region most likely representing calcified lymph nodes. No other significant abnormalities are identified. There has been no significant change since the prior study. BI/SCREEN MAMM (CAD) W/MIGUEL ÁNGEL BILAT IMPRESSION: Stable bilateral screening mammogram. Yearly follow-up mammogram recommended. (A) ASSESSMENT CATEGORY: BIRADS Category 2: Benign. A letter regarding these results will be sent to the patient by the facility within 30 days. Approximately 10% of breast cancers are not detected by mammography. A normal mammogram should not delay biopsy of a clinically suspicious abnormality. [id number] Electronically Signed: Philip Bose, at 8:21 EDT , Service support ,
== END | disposition home or self-care (01) ==
LOC: OPBI 15:22
PROVIDERS: PCP Family Medicine; Referring Provider Obstetrics & Gynecology; Visit Provider Obstetrics & Gynecology
DX: Z12.31 Encounter for screening mammogram for malignant neoplasm of breast (principal)
CPT/HCPCS: 77063; 77067

== ENCOUNTER → 2020-10-21 | Outpatient (CLI) | payer MEDICARE, OTHER, SELFPAY | END | disposition home or self-care (01) | LOC: LABSPEC 15:43 | PROVIDERS: PCP Family Medicine; Referring Provider Family Medicine; Visit Provider Family Medicine | DX: Z20.828 Contact with and (suspected) exposure to other viral communicable diseases (principal) | CPT/HCPCS: 87635; U0003 ==

== ENCOUNTER 2021-03-25 14:13 | Inpatient (IN) | payer MEDICARE, OTHER, SELFPAY ==
[2021-03-07 09:23] VITALS: BMI 17.6
[2021-03-25 14:14] VITALS: BP 112/75; PULSE 123; RESP 18; TEMP 36.6; O2SAT 99; BMI 17.9
--- NOTE | 2021-03-25 14:27 | EKG12_ITS ---
Test Reason : Blood Pressure : / mmHG Vent. Rate : 100 BPM Atrial Rate : 100 BPM P-R Int : 166 ms QRS Dur : 076 ms QT Int : 342 ms P-R-T Axes : 080 078 058 degrees QTc Int : 441 ms Normal sinus rhythm Biatrial enlargement Abnormal ECG Confirmed by RUSH DAVISON, PITER ([id number]), industrial editor DORA CRAMER ([id number]) on 03/27/2021 1:31:06 PM Referred By: CORI Confirmed By:PITER BEVERLY MD
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
[2021-03-25] MEDS: Ondansetron 4 MG/2 ML Vial IV ×2 (14:50→20:59)
[2021-03-25] MEDS: Morphine 2 MG/ML Syringe IV (14:51)
[2021-03-25 14:55] LABS: Absolute Lymphocyte Count 1.46 X10^3/uL (0.83-4.51); Absolute Neutrophil Count 9.4 X10^3/uL (2.0-7.7); Basophil# 0.06 X10^3/uL; Basophil% 0.5 % (0-1); Eosinophil# 0.06 X10^3/uL; Eosinophils% 0.5 % (0-5); Hematocrit 48.7 % (37-47); Hemoglobin 15.7 g/dL (12.0-15.0); Lymphocyte # 1.46 X10^3/ul (0.83-4.51); Lymphocyte % 12.4 % (19-41); Mean Corp Hgb Conc 32.2 g/dL (32-36); Mean Corpuscular Hgb 29.9 pg (27.0-32.0); Mean Corpuscular Volume 92.8 fL (81-99); Mean Platelet Vol. 10.4 fl (6.2-12.0); Monocyte# 0.82 X10^3/uL; Monocyte% 6.9 % (0-10); NRBC Flagged by Analyzer 0 % (0-5); Neutrophil # 9.36 X10^3/uL (2.7-7.7); Neutrophil % 79.3 % (47-70); Platelet Count 143 K/mm3 (150-450); RBC Distribution Width CV 12.9 % (11.6-14.6); RBC Distribution Width SD 44.1 fl (35.1-43.9); Red Blood Count 5.25 M/mm3 (4.2-5.4); White Blood Count 11.8 K/mm3 (4.4-11.0)
--- NOTE | 2021-03-25 15:00 | RAD_ITS ---
STUDY: X-RAY - ACUTE ABDOMINAL SERIES REASON FOR EXAM: Female, 70 years old. Abdominal pain. Nausea and vomiting. 40 pound weight loss. TECHNIQUE: Single view of the chest. Supine, view(s) of the abdomen were obtained. COMPARISON: Comparison is made with prior chest radiograph dated 09/27/2019. FINDINGS: Hyperinflation. The lungs are clear. Normal size heart. Normal mediastinum and elayne. Normal visualized pulmonary arteries. There is atherosclerotic tortuosity of the aortic arch and descending thoracic aorta. There is a moderate amount of colonic fecal material. The soft tissue structures of the abdomen and pelvis are unremarkable. Prior screw fixation of the bilateral sacroiliac joints. Prior ORIF of the superior and inferior pubic rami bilaterally. RAD/Acute Abdomen Inc Chest IMPRESSION: Moderate amount of fecal material is seen in the colon. Electronically Signed: Philip Bose MD at 15:22 EDT , Service support ,
[2021-03-25 15:08] LABS: ALB/GLOB Ratio 1.1 RATIO (0.9-2.4); AST(SGOT) 13 U/L (15-37); Alanine Aminotransfer ALT/SGPT 14 U/L (13-56); Alkaline Phosphatase 60 U/L (45-117); Anion Gap 5 (5-15); BUN 14 mg/dL (7-18); BUN/Creat Ratio 19.8 RATIO (10-20); Calcium,Total 9.6 mg/dL (8.5-10.1); Chloride 105 mmol/L (98-107); Creatinine, Serum 0.71 mg/dL (0.55-1.02); EST Glomerular Filtration Rate 87 mL/min (>60); Est Glom Filt Rate - Afr Amer 105 mL/min (>60); Estimated Creatinine Clearance 40.48 ml/min; Globulin 3.7 g/dL (2.2-4.2); Glucose 104 mg/dL (74-106); Lipase 886 U/L (73-393); Potassium 3.3 mmol/L (3.5-5.1); Protein, Total 7.7 g/dL (6.4-8.2); Sodium Level 138 mmol/L (136-145)
--- NOTE | 2021-03-25 15:36 | CT_ITS ---
STUDY: CT ABDOMEN AND PELVIS WITH CONTRAST REASON FOR EXAM: Female, 70 years old. Unintentional weight loss, 30 pounds, abdominal pain -- IV PO Contrast RADIATION DOSAGE (If Supplied By Facility): CTDIvol = ( 8.19 ) mGy, DLP = ( 277.99 ) mGycm TECHNIQUE: Transaxial images were obtained from the dome of the diaphragm to the symphysis pubis with oral contrast. 100 CC ISOVUE 300 was administered. Sagittal and coronal images were reconstructed. Individualized dose optimization techniques were used for this CT. COMPARISON: MRI of the pelvis dated October 07, 2011 FINDINGS: The visualized lung bases are unremarkable. The visualized portions of the heart are within normal limits. Normal liver. Normal gallbladder and extrahepatic biliary system. Normal spleen. Normal pancreas. Normal bilateral adrenal glands. Tiny simple cysts are present in both kidneys which do not require any additional imaging. Normal left kidney. Normal visualized stomach. Normal small intestine. Normal colon. The appendix is visualized and appears normal. There is diffuse atherosclerotic calcification of the abdominal aorta, without a demonstrated aneurysm. Normal inferior vena cava. Normal retroperitoneum. Bilateral SI joint lag screws are present. Normal urinary bladder. 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 Unremarkable uterus and left ovary. Shallow ventral hernia in the lower anterior pelvic wall. Cortical plate-screw construct seen across the superior pubic rami. Normal osseous structures. CT/Abdomen/Pelvis WITH Contrast IMPRESSION: 1. No demonstrated acute or significant process of the abdomen and pelvis. 2. 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 Unremarkable uterus and left ovary. Electronically Signed: Julio Hurst MD at 19:06 EDT , Service support ,
[2021-03-25 16:22] VITALS: BP 121/74; PULSE 78; RESP 14; O2SAT 99
[2021-03-25] MEDS: Morphine 4 MG/ML Syringe IV (18:09)
[2021-03-25 18:13] VITALS: BP 100/77; PULSE 87; RESP 16; O2SAT 99
[2021-03-25] MEDS: 0.9% Normal Saline 1,000 ML 999 ML IV (19:37)
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
[2021-03-25 19:54] VITALS: BP 116/84; PULSE 86; RESP 16; TEMP 36.4; O2SAT 97
[2021-03-25 20:11] VITALS: BMI 16.9
[2021-03-25 20:15] VITALS: BP 135/79; PULSE 73; RESP 16; TEMP 37.3; O2SAT 98
[2021-03-25 20:23] LABS: Magnesium 2.1 mg/dL (1.6-2.6); Thyroid Stim Hormone (TSH) 2.67 uIU/mL (0.358-3.74)
[2021-03-25] MEDS: Lactated Ringers 1,000 ML 150 ML IV (20:54)
[2021-03-25] MEDS: Enoxaparin 40 MG/0.4 ML Syringe SC (21:03)
[2021-03-25 22:20] VITALS: O2SAT 98
[2021-03-25] MEDS: Potassium Chloride Oral Tablet 20 MEQ 40 MEQ PO (22:44)
[2021-03-26] VITALS (8 sets, daily range): BP systolic 115–134; BP diastolic 64–75; PULSE 60–86; RESP 16–20; TEMP 36.4–36.9; O2SAT 96–99; BMI 16.9
[2021-03-26] MEDS: Lactated Ringers 1,000 ML 150 ML IV ×4 (02:44→22:30)
[2021-03-26 05:10] LABS: Absolute Lymphocyte Count 1.76 X10^3/uL (0.83-4.51); Basophil# 0.06 X10^3/uL; Basophil% 0.8 % (0-1); Eosinophil# 0.14 X10^3/uL; Eosinophils% 1.8 % (0-5); Hemoglobin 12.4 g/dL (12.0-15.0); Lymphocyte # 1.76 X10^3/ul (0.83-4.51); Lymphocyte % 23.2 % (19-41); Mean Corp Hgb Conc 32.6 g/dL (32-36); Mean Corpuscular Hgb 30.5 pg (27.0-32.0); Mean Corpuscular Volume 93.6 fL (81-99); Monocyte# 0.62 X10^3/uL; Monocyte% 8.2 % (0-10); NRBC Flagged by Analyzer 0 % (0-5); Neutrophil % 65.7 % (47-70); Platelet Count 117 K/mm3 (150-450); RBC Distribution Width CV 12.7 % (11.6-14.6); RBC Distribution Width SD 43.9 fl (35.1-43.9); Red Blood Count 4.06 M/mm3 (4.2-5.4); White Blood Count 7.6 K/mm3 (4.4-11.0)
[2021-03-26 05:33] LABS: AST(SGOT) 8 U/L (15-37); Alanine Aminotransfer ALT/SGPT 11 U/L (13-56); Albumin, Serum 2.7 g/dL (3.2-5.0); Alkaline Phosphatase 44 U/L (45-117); Anion Gap 3 (5-15); BUN 8 mg/dL (7-18); BUN/Creat Ratio 16.2 RATIO (10-20); Calcium,Total 8.1 mg/dL (8.5-10.1); Chloride 111 mmol/L (98-107); Creatinine, Serum 0.49 mg/dL (0.55-1.02); EST Glomerular Filtration Rate 131 mL/min (>60); Est Glom Filt Rate - Afr Amer 159 mL/min (>60); Globulin 2.7 g/dL (2.2-4.2); Glucose 76 mg/dL (74-106); Phosphorus 2.5 mg/dL (2.5-4.9); Potassium 4.2 mmol/L (3.5-5.1); Protein, Total 5.4 g/dL (6.4-8.2); Sodium Level 142 mmol/L (136-145)
[2021-03-26] MEDS: Vitamin B Comp W-C Capsule 1 CAP PO (08:07)
[2021-03-26] MEDS: Budesonide 3 MG CAPSULE.EC 9 MG PO (08:07)
[2021-03-26] MEDS: Calcium Carb/Vitamin D 1 TABLET Tablet PO (08:07)
[2021-03-26] MEDS: Venlafaxine XR 75 MG Capsule PO (08:08)
[2021-03-26] MEDS: Enoxaparin 40 MG/0.4 ML Syringe SC (08:08)
[2021-03-26] MEDS: Morphine 4 MG/ML Syringe IV ×3 (08:17→21:14)
--- NOTE | 2021-03-26 10:56 | PCM.PN.HOSP ---
Subjective Subjective Patient was seen and examined. Abdominal pain is improved since recently being medicated. She has some nausea but no vomiting. Objective Data Objective Data Vital Signs: Vital Signs Temp Pulse Resp BP Pulse Ox 98.2 F 60 16 133/75 H 99 03/26/21 08:15 03/26/21 08:15 03/26/21 08:15 03/26/21 08:15 03/26/21 08:15 Oxygen Delivery Method Room Air Weight: 47.5 kg Body Mass Index (BMI) 16.9 Intake & Output: Intake and Output for Last 24 Hours 03/24/21 03/25/21 03/26/21 23:59 23:59 23:59 Intake Total 1000 / 1300 2175 / 2175 Balance 1000 / 1300 2175 / 2175 Lab / Micro Data Result Diagrams: 03/26/21 04:54 03/26/21 04:54 Labs: Laboratory Results - last 24 hr 03/25/21 03/25/21 03/25/21 14:42 14:42 14:42 WBC 11.8 H RBC 5.25 Hgb 15.7 H Hct 48.7 H MCV 92.8 MCH 29.9 MCHC 32.2 RDW Std Deviation 44.1 H RDW Coeff of Charley 12.9 Plt Count 143 L MPV 10.4 Immature Gran % (Auto) 0.400 Neut % (Auto) 79.3 H Lymph % (Auto) 12.4 L Greenwood % (Auto) 6.9 Eos % (Auto) 0.5 Baso % (Auto) 0.5 Absolute Neuts (auto) 9.4 H Absolute Lymphs (auto) 1.46 Nucleated RBC % 0 Sodium 138 Potassium 3.3 L Chloride 105 Carbon Dioxide 28.0 Anion Gap 5 BUN 14 Creatinine 0.71 Estim Creat Clear Calc 40.48 Est GFR (MDRD) Af Amer 105 Est GFR (MDRD) Non-Af 87 BUN/Creatinine Ratio 19.8 Glucose 104 Calcium 9.6 Phosphorus Magnesium 2.1 Total Bilirubin 0.90 AST 13 L ALT 14 Alkaline Phosphatase 60 Total Protein 7.7 Albumin 4.0 Globulin 3.7 Albumin/Globulin Ratio 1.1 Lipase 886 H TSH 2.67 03/26/21 03/26/21 04:54 04:54 WBC 7.6 RBC 4.06 L Hgb 12.4 Hct 38.0 MCV 93.6 MCH 30.5 MCHC 32.6 RDW Std Deviation 43.9 RDW Coeff of Charley 12.7 Plt Count 117 L MPV 10.0 Immature Gran % (Auto) 0.300 Neut % (Auto) 65.7 Lymph % (Auto) 23.2 Greenwood % (Auto) 8.2 Eos % (Auto) 1.8 Baso % (Auto) 0.8 Absolute Neuts (auto) 5.0 Absolute Lymphs (auto) 1.76 Nucleated RBC % 0 Sodium 142 Potassium 4.2 Chloride 111 H Carbon Dioxide 28.0 Anion Gap 3 L BUN 8 Creatinine 0.49 L Estim Creat Clear Calc 39.50 Est GFR (MDRD) Af Amer 159 Est GFR (MDRD) Non-Af 131 BUN/Creatinine Ratio 16.2 Glucose 76 Calcium 8.1 L Phosphorus 2.5 Magnesium Total Bilirubin 0.60 AST 8 L ALT 11 L Alkaline Phosphatase 44 L Total Protein 5.4 L Albumin 2.7 L Globulin 2.7 Albumin/Globulin Ratio 1.0 Lipase TSH Radiography Diagnostic Testing: Radiology Impression Acute Abdomen Series 03/25/21 15:00 IMPRESSION: Moderate amount of fecal material is seen in the colon. Electronically Signed: Philip Bose MD at 15:22 EDT , Service support , Abdomen/Pelvis CT 03/25/21 15:36 IMPRESSION: 1. No demonstrated acute or significant process of the abdomen and pelvis. 2. 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 Unremarkable uterus and left ovary. Electronically Signed: Julio Hurst MD at 19:06 EDT , Service support , Gallbladder Ultrasound 03/26/21 19:43 IMPRESSION: Heterogeneous appearance of the pancreas. There are 2 small right renal cysts. Electronically Signed: Philip Bose MD at 9:57 EDT , Service support , Physical Exam Narrative General: Alert, Oriented x3, Cooperative, No apparent distress HEENT: Atraumatic, PERRLA, EOMI, Normocephalic Oral: Moist Mucosa Neck: Supple Lungs: Normal air movement, Diminished Cardiovascular: Regular rate, Regular Rhythm, Normal S1, Normal S2, No murmurs Abdomen: Bowel Sounds Present, Soft, Non Tender, Non-Distended, No Hepato-splenomegaly Extremities: No edema Skin: No rashes Neurological: Cranial nerves II-XII grossly intact, Neuro grossly intact Psych/Mental Status: Normal Affect, Appropriate Assessment & Plan Assessment/Plan (1) Acute pancreatitis: QUALIFIERS: Pancreatitis type: other (2) Weight loss: (3) Tobacco abuse: (4) Hypokalemia: (5) Thrombocytopenia: PLAN: 3 Would hold heparin (6) Malnutrition of moderate degree: (7) Nicotine dependence: (8) Leucocytosis: PLAN: 1. Acute pancreatitis, admitted lipase is more than 800, CT of abdomen and pelvis shows normal pancreas Ultrasound of the gallbladder shows no gallstones; heterogeneous appearance of the pancreas We will trend lipase today, continue clear liquid diet, advance diet as tolerated 2. Thrombocytopenia, dropping platelets 117 from 143 We will discontinue Lovenox, repeat blood work in a.m. 3. Malnutrition, moderate, product director consulted 4. Hypokalemia, replaced 5. Nicotine dependence, advised to quit Visit Charges Inpatient E&M: 95935 Subs Hosp L2
[2021-03-26 11:26] LABS: Lipase 180 U/L (73-393)
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
[2021-03-26] MEDS: Albuterol 2.5 MG/3 ML VIAL.NEB. INHALATION ×2 (13:48→19:18)
--- NOTE | 2021-03-26 16:14 | PCM.NTREPORT ---
Nutrition Therapy Report - History Nutrition Services has been consulted to:: Manage nutrient details of diet order Current diet / nutrition support order:: Clear Liquid diet - Anthropometric Measurements Height:: 5 ft 6 in Weight:: 47.5 kg Body Mass Index (BMI):: 16.9 - Relevant Labs Relevant Labs:: WBC 11.8 K/mm3 (4.4-11.0) H 03/25/21 14:42 RBC 4.06 M/mm3 (4.2-5.4) L 03/26/21 04:54 Hgb 15.7 g/dL (12.0-15.0) H 03/25/21 14:42 Hct 48.7 % (37-47) H 03/25/21 14:42 RDW Std Deviation 44.1 fl (35.1-43.9) H 03/25/21 14:42 Plt Count 117 K/mm3 (150-450) L 03/26/21 04:54 Neut % (Auto) 79.3 % (47-70) H 03/25/21 14:42 Lymph % (Auto) 12.4 % (19-41) L 03/25/21 14:42 Absolute Neuts (auto) 9.4 X10^3/uL (2.0-7.7) H 03/25/21 14:42 Potassium 3.3 mmol/L (3.5-5.1) L 03/25/21 14:42 Chloride 111 mmol/L (98-107) H 03/26/21 04:54 Anion Gap 3 (5-15) L 03/26/21 04:54 Creatinine 0.49 mg/dL (0.55-1.02) L 03/26/21 04:54 Calcium 8.1 mg/dL (8.5-10.1) L 03/26/21 04:54 AST 8 U/L (15-37) L 03/26/21 04:54 ALT 11 U/L (13-56) L 03/26/21 04:54 Alkaline Phosphatase 44 U/L (45-117) L 03/26/21 04:54 Total Protein 5.4 g/dL (6.4-8.2) L 03/26/21 04:54 Albumin 2.7 g/dL (3.2-5.0) L 03/26/21 04:54 Lipase 886 U/L (73-393) H 03/25/21 14:42 - Assessment Food / Nutrition-Related History:: Pt reports weighed~130-140 lbs about 2-3 months ago; calculated wt loss~15-20% is significant for malnutrition. Pt reports nausea but, no vomiting at this time. 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 Pt appears to have severe muscle and fat wasting in the face, clavicle, upper body, arms and legs. +NFPA. Pt was NPO and currently advanced to clear liquids with fair tolerance of clears. Pt denies difficulty chewing/swallowing. Agreeable to ensure clear for now since on clear liquid diet and strongly encouraged pt to continue ONS after d/c as well to for kcal/pro repletion--pt agreeable. - Nutrition Diagnosis Problem / Etiology / Signs & Symptoms (PES):: Severe pro/gill malnutrition in the context of acute illness related altered GI function, inadequate oral intake and inadequate energy intake as evidenced by poor PO college associate meeting less than 50% estimated nutrition needs, ~15-20% wt loss x past 2-3 months reported and BMI 16.9 Evidence of Malnutrition Exists:: Yes Severe PCM:: Acute Illness - Nutrition Intervention Nutrition Prescription:: Estimated nutrition needs for repletion ~1637-6029 kcal (35 kcal/Kg) and ~70-75 gm pro (1.5 gm pro/Kg) per day. Estimated fluid needs~3334-7606 ml (31-35ml/Kg) - Food / Nutrient Delivery Interventions Summary of nutrition intervention:: Continue clear liquids and advance diet as tolerated to low fat as medically able. Will add 240 ml ensure clear TID w/ meals. Will continue to monitor PO, wt, labs and follow-up. Refer to out-pt RD as needed for supportive wt gain. Nutrition support ordered as / adjusted to:: none at this time Nutrition education provided?: Yes - ONS for energy/pro repletion - MNT Monitoring Further MNT monitoring and evaluation required?: Yes MNT Follow-up in:: 3-5 days
[2021-03-26] MEDS: Budesonide Respules 0.5 MG/2 ML AMPUL.NEB. INHALATION (19:18)
--- NOTE | 2021-03-26 19:43 | US_ITS ---
STUDY: ABDOMINAL ULTRASOUND - RIGHT UPPER QUADRANT REASON FOR VISIT: Female, 70 years old abdominal pain TECHNIQUE: Ultrasound evaluation of the right upper quadrant was performed with real-time and static cruz-scale imaging. TECHNICAL QUALITY: Adequate. COMPARISON: Comparison is made with prior CT scan the abdomen dated 03/25/2021. FINDINGS: Liver: The liver measures 16 cm. There is normal echogenicity of the liver. The bile ducts are mildly dilated. There is hepatic color flow. The direction of portal flow is hepatopetal. There is no demonstrated mass lesion. Gallbladder: Normal distended gallbladder. The gallbladder wall measures 1.5 mm. There is a negative sonographic Mcdaniels''s sign. There is no pericholecystic fluid. There are no gallstones. Common Bile Duct (C.B.D.): The common bile duct measures 4.8 mm. Pancreas: Normal size of the head, body and tail of the pancreas. Heterogeneous appearance of the pancreas. There is no demonstrated pancreatic mass or cyst. Right Kidney: Normal size of the right kidney. The right kidney measures 10.2 cm x 5.3 cm x 3.4 cm. Normal renal cortex. The right cortex measures 1.3 cm. 2 small renal cysts are seen. The larger measures 7 mm x 12 mm x 9 mm. There is no right hydronephrosis. US/Gallbladder IMPRESSION: Heterogeneous appearance of the pancreas. There are 2 small right renal cysts. Electronically Signed: Philip Bose MD at 9:57 EDT , Service support ,
[2021-03-26] MEDS: traZODone 50 MG Tablet PO (21:13)
[2021-03-26] MEDS: Ondansetron 4 MG/2 ML Vial IV (21:14)
[2021-03-26] MEDS: 0.9% Saline Lock 10 ML Syringe IV (21:15)
[2021-03-27 02:15] VITALS: BP 125/69; PULSE 65; RESP 18; TEMP 36.7; O2SAT 96
[2021-03-27] MEDS: Levothyroxine 25 MCG TABLET PO (05:13)
[2021-03-27] MEDS: Lactated Ringers 1,000 ML 150 ML IV (05:13)
[2021-03-27 06:05] LABS: Absolute Lymphocyte Count 1.58 X10^3/uL (0.83-4.51); Absolute Neutrophil Count 3.2 X10^3/uL (2.0-7.7); Basophil# 0.07 X10^3/uL; Basophil% 1.3 % (0-1); Eosinophil# 0.12 X10^3/uL; Eosinophils% 2.2 % (0-5); Hematocrit 32.8 % (37-47); Hemoglobin 10.5 g/dL (12.0-15.0); Lymphocyte # 1.58 X10^3/ul (0.83-4.51); Lymphocyte % 28.9 % (19-41); Mean Corpuscular Hgb 30.1 pg (27.0-32.0); Monocyte# 0.47 X10^3/uL; Monocyte% 8.6 % (0-10); NRBC Flagged by Analyzer 0 % (0-5); Neutrophil # 3.22 X10^3/uL (2.7-7.7); Neutrophil % 58.8 % (47-70); Platelet Count 126 K/mm3 (150-450); RBC Distribution Width SD 44.9 fl (35.1-43.9); Red Blood Count 3.49 M/mm3 (4.2-5.4); White Blood Count 5.5 K/mm3 (4.4-11.0)
[2021-03-27 06:31] LABS: ALB/GLOB Ratio 1.1 RATIO (0.9-2.4); AST(SGOT) 12 U/L (15-37); Alanine Aminotransfer ALT/SGPT 10 U/L (13-56); Albumin, Serum 2.5 g/dL (3.2-5.0); Alkaline Phosphatase 37 U/L (45-117); Anion Gap 2 (5-15); BUN 5 mg/dL (7-18); BUN/Creat Ratio 12.5 RATIO (10-20); Calcium,Total 8.1 mg/dL (8.5-10.1); Chloride 110 mmol/L (98-107); EST Glomerular Filtration Rate 168 mL/min (>60); Est Glom Filt Rate - Afr Amer 203 mL/min (>60); Estimated Creatinine Clearance 39.25 ml/min; Globulin 2.2 g/dL (2.2-4.2); Glucose 83 mg/dL (74-106); Potassium 3.7 mmol/L (3.5-5.1); Protein, Total 4.7 g/dL (6.4-8.2); Sodium Level 142 mmol/L (136-145)
[2021-03-27 06:52] VITALS: PULSE 65; RESP 18; O2SAT 92
[2021-03-27] MEDS: Budesonide Respules 0.5 MG/2 ML AMPUL.NEB. INHALATION (06:52)
[2021-03-27] MEDS: Albuterol 2.5 MG/3 ML VIAL.NEB. INHALATION ×2 (06:52→13:11)
[2021-03-27 08:21] VITALS: BP 111/71; PULSE 82; RESP 16; TEMP 37.2; O2SAT 98
[2021-03-27] MEDS: Ondansetron 4 MG/2 ML Vial IV (08:48)
[2021-03-27] MEDS: Budesonide 3 MG CAPSULE.EC 9 MG PO (08:50)
[2021-03-27] MEDS: Vitamin B Comp W-C Capsule 1 CAP PO (08:50)
[2021-03-27] MEDS: Venlafaxine XR 75 MG Capsule PO (08:50)
[2021-03-27] MEDS: Calcium Carb/Vitamin D 1 TABLET Tablet PO (08:50)
--- NOTE | 2021-03-27 10:00 | CASEMGMT ---
DESTINEE ROD NOTE: Pt screened with [facility] Palliative Care Screening Tool for strata 3, pt does not meet criteria. Iona GARRISONN RN CM
--- NOTE | 2021-03-27 10:07 | CASEMGMT ---
DESTINEE ROD NOTE: Reviewed PT/OT notes. DESTINEE ROD in room to talk w/pt re: discharge planning. Pt confirms that she was set up @ [facility] yesterday for the initial eval (ordered by PCP, Dr Knowles), but had to cancel d/t hospitalization. Pt wishes to resume OP therapy @ [facility] and plans to reschedule @ [facility] after d/c home. She has their contact #. She denies having any discharge/home-going needs. Iona PRATER RN CM
--- NOTE | 2021-03-27 12:48 | DS.PCM_ITS ---
Providers Date of Admission: 03/25/21 Date of Discharge: 03/27/21 Primary Care Physician: Dr. Josias Knowles MD Reason For Visit: ACUTE PANCREATITIS Diagnosis Discharge Diagnosis (1) Acute pancreatitis: Status: Resolved Code(s): K85.90 - Acute pancreatitis without necrosis or infection, unspecified Qualifiers: Pancreatitis type: other (2) Weight loss: Status: Acute Code(s): R63.4 - Abnormal weight loss (3) Tobacco abuse: Status: Acute Code(s): Z72.0 - Tobacco use (4) Hypokalemia: Status: Resolved Code(s): E87.6 - Hypokalemia (5) Thrombocytopenia: Status: Acute Code(s): D69.6 - Thrombocytopenia, unspecified (6) Nicotine dependence: Status: Chronic Code(s): F17.200 - Nicotine dependence, unspecified, uncomplicated (7) Leucocytosis: Status: Resolved Code(s): D72.829 - Elevated white blood cell count, unspecified (8) Severe malnutrition: Status: Acute Code(s): E43 - Unspecified severe protein-calorie malnutrition Medications at Discharge Home Medications B-complex with vitamin C 1 tablet PO DAILY 03/06/21 acetaminophen 500 mg capsule 500 mg PO Q6H PRN 03/06/21 budesonide-formoterol HFA 160 mcg-4.5 mcg/actuation aerosol inhaler 2 puff INHALATION BID 03/06/21 levothyroxine 25 mcg capsule 25 mcg PO DAILY 03/06/21 sennosides 8.6 mg capsule 8.6 mg PO BID PRN 03/06/21 trazodone 50 mg tablet 50 mg PO DAILY 03/06/21 venlafaxine 75 mg capsule,extended release 24 hr 75 mg PO DAILY 03/06/21 budesonide 9 mg PO DAILY 03/25/21 calcium carb-vit D3-soy isoflv 1 tab PO DAILY 03/25/21 pantoprazole 40 mg PO BID #60 tab 03/27/21 Hospital Course Operations None Procedures None Summary of Care Provided Minutes Spent on Discharge: 40 Hospital Course: 70-year-old female with past medical history of COPD, nicotine dependence who comes in with 30 pound weight loss abdominal pain and night sweats that have been ongoing for couple of weeks. Patient is undergoing work- up by her primary care doctor. She comes in with severe epigastric pain associated with nausea. She has chronic diarrhea which was believed to be secondary to collagenous colitis for which her PCP started her on budesonide that helped with her diarrhea. She has lost about 32 pounds in weight over the last 2 months. Patient's admitted lipase was elevated. She was managed conservatively. CT of the abdomen and pelvis showed normal pancreas. She was admitted and managed as acute pancreatitis. Patient continued to improve. She tolerated advancement in her diet. She was discharged on pantoprazole twice daily. She was asked to follow-up with her primary care doctor within 2 weeks. She has been referred to see a GI doctor and her appointment is on May 14. I discussed that she may need to ask her primary care doctor to help make a sooner appointment. Physical Exam Narrative General: Alert, Oriented x3, Cooperative, No apparent distress HEENT: Atraumatic, PERRLA, EOMI, Normocephalic Oral: Moist Mucosa Neck: Supple Lungs: Normal air movement, Diminished Cardiovascular: Regular rate, Regular Rhythm, Normal S1, Normal S2, No murmurs Abdomen: Bowel Sounds Present, Soft, Non Tender, Non-Distended, No Hepato- splenomegaly Extremities: No edema Skin: No rashes Neurological: Cranial nerves II-XII grossly intact, Neuro grossly intact Psych/Mental Status: Normal Affect, Appropriate ABG / Lab / Microbiology Data Result Diagrams: 03/27/21 05:40 03/27/21 05:40 Laboratory: Laboratory Results - last 24 hr 03/27/21 03/27/21 05:40 05:40 WBC 5.5 RBC 3.49 L Hgb 10.5 L Hct 32.8 L MCV 94.0 MCH 30.1 MCHC 32.0 RDW Std Deviation 44.9 H RDW Coeff of Charley 13.0 Plt Count 126 L MPV 10.0 Immature Gran % (Auto) 0.200 Neut % (Auto) 58.8 Lymph % (Auto) 28.9 Wilcox % (Auto) 8.6 Eos % (Auto) 2.2 Baso % (Auto) 1.3 H Absolute Neuts (auto) 3.2 Absolute Lymphs (auto) 1.58 Nucleated RBC % 0 Sodium 142 Potassium 3.7 Chloride 110 H Carbon Dioxide 30.0 Anion Gap 2 L BUN 5 L Creatinine 0.40 L Estim Creat Clear Calc 39.25 Est GFR (MDRD) Af Amer 203 Est GFR (MDRD) Non-Af 168 BUN/Creatinine Ratio 12.5 Glucose 83 Calcium 8.1 L Total Bilirubin 0.40 AST 12 L ALT 10 L Alkaline Phosphatase 37 L Total Protein 4.7 L Albumin 2.5 L Globulin 2.2 Albumin/Globulin Ratio 1.1 D/C Instructions Discharge Diet: No restrictions Discharge Activity: Return to Normal Activity Meaningful Use Info Meaningful Use Diagnoses (Choose all that apply): None applicable Discharge Plan Admission Admit Date/Time: 03/25/21 19:42 Primary Reason for Your Visit: Acute abdominal pain Attending Provider: Suly Magdaleno Primary Care Provider: Josias Knowles Instructions Additional Instructions / Restrictions: Continue to keep yourself hydrated. Take note of changes to your medications. follow-up with your primary care doctor within 1 to 2 weeks. Discharge Orders/Prescriptions Prescriptions: New pantoprazole 40 mg tablet,delayed release (DR/EC) 40 mg PO BID Qty: 60 RF: 0 Continued senna 8.6 mg capsule 8.6 mg PO BID PRN (Reason: STOOL) RF: 0 acetaminophen 500 mg capsule 500 mg PO Q6H PRN (Reason: Pain) RF: 0 budesonide-formoterol [Symbicort] 160-4.5 mcg/actuation HFA aerosol inhaler 2 puff INHALATION BID RF: 0 levothyroxine 25 mcg capsule 25 mcg PO DAILY RF: 0 B-complex with vitamin C Tablet 1 tablet PO DAILY RF: 0 trazodone 50 mg tablet 50 mg PO DAILY RF: 0 venlafaxine 75 mg capsule,extended release 24hr 75 mg PO DAILY RF: 0 budesonide 3 mg capsule,delayed,extend.release 9 mg PO DAILY RF: 0 calcium carb-vit D3-soy isoflv 500-200-45 mg-unit-mg Tablet 1 tab PO DAILY RF: 0 Discontinued celecoxib 200 mg capsule 200 mg PO DAILY PRN (Reason: pain) RF: 0 Referrals / Follow Up: Josias Knowles MD [Primary Care Provider] - Within 2 Weeks Disposition Disposition (needs filled in before D/C Order can be placed): Home, self care Visit Charges Inpatient E&M: [id number] Disch Hosp
[2021-03-27 13:25] VITALS: PULSE 71; RESP 18
--- NOTE | 2021-03-27 14:42 | PHA.DC.MR ---
Pharmacy Service has performed discharge medication reconciliation for this patient. Printed papers to insurance counselor pt, but pt had already left hospital prior to dc. Medication reconciliation was performed. Home Medications B-complex with vitamin C 1 tablet PO DAILY 03/06/21 acetaminophen 500 mg capsule 500 mg PO Q6H PRN 03/06/21 budesonide-formoterol HFA 160 mcg-4.5 mcg/actuation aerosol inhaler 2 puff INHALATION BID 03/06/21 levothyroxine 25 mcg capsule 25 mcg PO DAILY 03/06/21 sennosides 8.6 mg capsule 8.6 mg PO BID PRN 03/06/21 trazodone 50 mg tablet 50 mg PO DAILY 03/06/21 venlafaxine 75 mg capsule,extended release 24 hr 75 mg PO DAILY 03/06/21 budesonide 9 mg PO DAILY 03/25/21 calcium carb-vit D3-soy isoflv 1 tab PO DAILY 03/25/21 pantoprazole 40 mg PO BID #60 tab 03/27/21 The patient's discharge medication list was reviewed for discrepancies and discrepancies were resolved.
--- NOTE | 2021-03-28 14:42 | CASEMGMT ---
DESTINEE ROD Discharge Follow-up Phone Call: CODISummer: Man Strata: 3 Call Date: 03/28/21 Discharge Date: 03/27/21 Time of Call: 1440 Duration: 3 min Admitting Diagnosis: Acute Pancreatitis DESTINEE ROD completed follow-up phone call after recent hospitalization. Patient is doing ok but still having pain. Patient has follow-up appt scheduled for Wednesday. PCP office told patient they will make a referral to Dr Beto MCDANIEL. Patient was able to fill prescription without any issues. Patient had no further questions or concerns regarding discharge instructions.
== END 2021-03-27 14:10 | disposition home or self-care (01) | DRG 438 ==
LOC: ED 19:33 → MS3 19:45
PROVIDERS: Emergency Medicine; Nurse Practitioner Family; Admitting Provider Hospitalist; Emergency Provider Emergency Medicine; PCP Family Medicine; Visit Provider Internal Medicine
DX: K85.90 Acute pancreatitis without necrosis or infection, unspecified (principal); E43 Unspecified severe protein-calorie malnutrition; Z68.1 Body mass index [BMI] 19.9 or less, adult; E87.6 Hypokalemia; D69.6 Thrombocytopenia, unspecified; D72.829 Elevated white blood cell count, unspecified; F17.200 Nicotine dependence, unspecified, uncomplicated; E03.9 Hypothyroidism, unspecified; F41.9 Anxiety disorder, unspecified; F32.9 Major depressive disorder, single episode, unspecified; J44.9 Chronic obstructive pulmonary disease, unspecified; Z79.899 Other long term (current) drug therapy
CPT/HCPCS: 36415; 74022; 74177; 76705; 80053; 83690; 83735; 84100; 84443; 85025; 93005; 94640; 97161; 97166; 97530; 97535; 97802; 99285; J7030; J7120; Q9967; A4216; J2405

== ENCOUNTER → 2021-04-02 12:08 | Outpatient (CLI) | payer MEDICARE, OTHER, SELFPAY ==
[2021-03-26 16:15] VITALS: BMI 16.9
[2021-04-02 15:53] LABS: CRP < 2.90 mg/L (0.0-3.0)
[2021-04-04 16:08] LABS: Endomysial Antibody IgA Negative (Negative)
[2021-04-04 16:37] LABS: Immunoglobulin A 188 mg/dL (87-352); t-Transglutaminase IgA <2 U/mL (0-3)
== END ==
PROVIDERS: PCP Family Medicine; Referring Provider Internal Medicine Gastroenterology; Visit Provider Internal Medicine Gastroenterology
DX: R19.7 Diarrhea, unspecified (principal)
CPT/HCPCS: 36415; 82784; 83516; 86140; 86255

== ENCOUNTER 2021-04-16 13:28 | Outpatient (RCR) | payer MEDICARE, OTHER, SELFPAY ==
[2021-03-07 09:23] VITALS: BMI 17.6
[2021-03-26 16:15] VITALS: BMI 16.9
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
--- NOTE | 2021-08-19 09:50 | HP.PT.NRP ---
HETAL SINGH was seen in my office for initial evaluation on 04/16/21. The following Plan of Care was established for this patient: Initial Frequency: 2x /Week Initial Duration: 4 Weeks Patient/Client Instruction: Educate patient on: Condition, Plan of Care For the Purpose of:: To decrease pain, To improve muscle performance and motor function, To increase tolerance to activity/condition/position, To improve performance and independence with ADL's, To decrease level of supervision to perform tasks, To improve ability of physical actions for home/community/work/leisure, To improve health of tissue, To decrease soft tissue restriction, To improve endurance, To assume or resume ADL's, To reduce risk of recurrence, To improve ability to perform tasks related to life management Therapeutic Exercise to Include: Strength training, Endurance training, Balance training, Gait and locomotor training For the Purpose of:: To decrease pain, To increase oxygenation perfusion, To improve ability to perform ADL's, To increase tolerance to activity/condition/position, To improve performance and independence with ADL's, To improve ability of physical actions for home/community/work/leisure, To improve endurance, To assume or resume ADL's, To improve tolerance to ADL's This patient was last seen in our office . Pertinent comments regarding their Physical therapy will appear below: Patient was seen for PT for HEP for weakness. At this point I will be discontinuing this patient from physical therapy. I would be happy to see this patient again in the future if found appropriate by the physician. Thank you! Alverto Bruno, PT, Cert MDT, OCS Balance/Gait/Functional tests - Balance/Special Test Scores Functional Gait Assessment Score: 22 % Disability: 26.6700 CATSIB Score (Max score 120 seconds): 110 Lower Extremity Functional Score: 28
== END 2021-04-16 19:00 | disposition home or self-care (01) ==
LOC: PT 13:28
PROVIDERS: PCP Family Medicine; Referring Provider Family Medicine; Visit Provider Family Medicine
DX: K52.9 Noninfective gastroenteritis and colitis, unspecified (principal); R53.1 Weakness
CPT/HCPCS: 97110; 97162

== ENCOUNTER → 2021-04-17 12:19 | Outpatient (CLI) | payer MEDICARE, OTHER, SELFPAY ==
[2021-03-07 09:23] VITALS: BMI 17.6
[2021-03-26 16:15] VITALS: BMI 16.9
[2021-04-17 12:50] VITALS: PULSE 106; PULSE 112; PULSE 113; PULSE 115; PULSE 119; PULSE 122; PULSE 95; PULSE 96; O2SAT 95; O2SAT 96; O2SAT 97
--- NOTE | 2021-04-18 07:59 | PCM.PSN.6M ---
PSN 6 Minute Walk Test 6 Minute Walk Test 6 Minute Walk Test: 6 Minute Walk Test PSN:6-Minute Walk Test Start: 04/17/21 12:50 Freq: Status: Active Protocol: RESP.6MINW Document 04/17/21 12:50 ROLANDRAINER (Rec: 04/17/21 12:52 ADENIKEFADIARAINER [id number]) 6 Minute Walk Test Date Performed 04/17/21 Time Performed 12:30 Height 5 ft 5 in Weight: 106 lb Weight in Pounds 106.[address]: Juanpablo Vallejo Assistive device used: None Pre-test Oxygen Delivery Method Room Air Pulse Ox (%) 97 Pulse Rate (60-100 beats/min) 96 Dyspnea Anthony Scale (0-10) 0 Exertion Anthony Scale (6-20) 6 1st minute Oxygen Delivery Method Room Air Pulse Ox (%) 96 Pulse Rate (60-100 beats/min) 112 H 2nd minute Oxygen Delivery Method Room Air Pulse Ox (%) 95 Pulse Rate (60-100 beats/min) 113 H 3rd minute Oxygen Delivery Method Room Air Pulse Ox (%) 96 Pulse Rate (60-100 beats/min) 115 H 4th minute Oxygen Delivery Method Room Air Pulse Ox (%) 96 Pulse Rate (60-100 beats/min) 106 H 5th minute Oxygen Delivery Method Room Air Pulse Ox (%) 96 Pulse Rate (60-100 beats/min) 119 H 6th minute Oxygen Delivery Method Room Air Pulse Ox (%) 96 Pulse Rate (60-100 beats/min) 122 H Dyspnea Anthony Scale (0-10) 1 Exertion Anthony Scale (6-20) 13 Post-test Oxygen Delivery Method Room Air Pulse Ox (%) 96 Pulse Rate (60-100 beats/min) 95 Full Laps Walked 16 Partial Lap, Number of Tiles Walked 20 Total Distance Walked (ft) 964 Interpretation Interpretation: The patient ambulated 964 feet over the course of 6 minutes beginning on room air without assistive devices. Pretesting oxygen saturation was noted to be 97% on room air. With ambulation, the satnam oxygen saturation was 95%. There was no significant exertional oxygen desaturation. Recommendations Recommendations: There is no indication for the use of supplemental oxygen at this time.
== END ==
PROVIDERS: PCP Family Medicine; Referring Provider Internal Medicine Critical Care Medicine; Visit Provider Internal Medicine Critical Care Medicine
DX: R06.00 Dyspnea, unspecified (principal)
CPT/HCPCS: 94618

== ENCOUNTER → 2021-04-18 12:47 | Outpatient (CLI) | payer MEDICARE, OTHER, SELFPAY ==
[2021-03-07 09:23] VITALS: BMI 17.6
[2021-03-26 16:15] VITALS: BMI 16.9
--- NOTE | 2021-04-18 13:53 | CT_ITS ---
STUDY: LOW DOSE CT LUNG CANCER SCREENING REASON FOR EXAM: Female, 70 years old. Screening -- 52 pk/yr history. COPD. Weight loss. RADIATION DOSAGE (If Supplied By Facility): CTDIvol = ( 1.40 ) mGy, DLP = ( 46.89 ) mGycm TECHNIQUE: No contrast was administered. Low dose technique was utilized (average mAS-38 and kVp 120). 1.25 mm axial source images with a slice interval of 1.25-mm were reconstructed in lung windows. 2.5 mm axial source images with a slice interval of 2.5-mm were reconstructed in lung windows. 5.0 mm axial source images with a slice interval of 5.0-mm were reconstructed in soft tissue windows. Nodule measured using lung windows on PACS and/or independent workstation with automated measurement of minimum and maximum diameter. Nodule measurement reported as average diameter rounded to the nearest whole number. Growth is defined as an increase ins size of greater than 1.5 mm. COMPARISON: None. NODULES: There is a 2.7 mm noncalcified nodule in the anterior aspect of the right upper lobe as seen on axial image #63. Emphysema: Hyperinflation. Emphysematous changes are seen in the upper lobes. Findings suggestive of scarring in both lung apices. Endobronchial lesion: None Aorta: Atherosclerotic calcific plaques. Coronary arteries: Coronary artery calcification. Heart: Unremarkable Pulmonary artery: Unremarkable Mediastinal nodes: Small mediastinal lymph nodes. Other chest and abdominal findings: CT/Low Dose CT Lung Screening IMPRESSION: Lung-RADS category 2 - Continue annual screening with LDCT in 12 months. IMPORTANT NOTES FOR USE: ACR Lung-RADS Version 1.1 Assessment Categories Release Date: 2018 Category: Coded 0-4 bases on nodule(s) with highest degree of suspicion. Negative screen is defined as categories 1 and 2; a positive screen is defined as categories 3 and 4. Category 3 and 4A nodules that are unchanged on interval CT should be coded as category 2, and individuals returned to screening in 12 months. Category 4X: Category 3 or 4 nodules with additional imaging findings that increase the suspicion of lung cancer, such as spiculation, GGN that doubles in size in 1 year, enlarged lymph notes, etc. Category Modifiers: S (significant finding unrelated to lung cancer) Electronically Signed: Philip Bose MD at 14:43 EDT , Service support ,
--- NOTE | 2021-04-19 07:53 | PFT_ITS ---
INTRODUCTION: The patient is a 70-year-old female that presents for pulmonary function studies secondary to a diagnosis of dyspnea on exertion. Respiratory therapy reports good patient effort. Bronchodilators were used during testing. INTERPRETATION: Forced expiration spirometry demonstrates the presence of a mild large airways obstructive ventilatory defect. There was a significant response to aerosolized bronchodilators noted. Spirograms are of good quality and plateau gradually indicating slow emptying of the lungs. Body plethysmography was performed and reveals lung volumes to be within normal limits. Diffusing capacity by single breath CO is also within normal limits. IMPRESSION: Fully reversible mild large airways obstructive ventilatory defect with pr eserved lung volumes and diffusing capacity.
== END ==
PROVIDERS: PCP Family Medicine; Referring Provider Internal Medicine Critical Care Medicine; Visit Provider Internal Medicine Critical Care Medicine
DX: R06.00 Dyspnea, unspecified (principal); Z87.891 Personal history of nicotine dependence; Z72.0 Tobacco use; Z12.2 Encounter for screening for malignant neoplasm of respiratory organs
CPT/HCPCS: 71271; 94060; 94726; 94729

== ENCOUNTER → 2021-04-22 16:48 | Outpatient (CLI) | payer MEDICARE, OTHER, SELFPAY ==
[2021-03-26 16:15] VITALS: BMI 16.9
--- NOTE | 2021-04-22 16:51 | CT_ITS ---
STUDY: CT ABDOMEN AND PELVIS WITH CONTRAST REASON FOR EXAM: Female, 70 years old. DIARRHEA,ABD PAIN,WT LOSS. METAL ARTIFACT REDUCTION SERIES INCLUDED RADIATION DOSAGE (If Supplied By Facility): CTDIvol = ( 9.97 ) mGy, DLP = ( 292.52 ) mGycm TECHNIQUE: Transaxial images were obtained from the dome of the diaphragm to the symphysis pubis with oral contrast. Oral and amp; IV Readi-CAT and amp; 75mL Isovue-300 was administered. Sagittal and coronal images were reconstructed. Individualized dose optimization techniques were used for this CT. COMPARISON: 03/25/2021 FINDINGS: The visualized lung bases are unremarkable. The visualized portions of the heart are within normal limits. Normal liver. Normal gallbladder and extrahepatic biliary system. Normal spleen. Normal pancreas. Normal bilateral adrenal glands. Normal right kidney. Normal left kidney. Normal visualized stomach. Normal small intestine. Normal colon. The appendix is visualized and appears normal. Normal abdominal aorta. Normal inferior vena cava. Normal retroperitoneum. Normal urinary bladder. No change in 5 cm ovoid of the right ovary. Normal abdominal wall. Status post fixation of the sacroiliac joints with 2 large screws as well as fixation of the symphysis pubis with a anterior plate and screws. CT/Abdomen/Pelvis WITH Contrast IMPRESSION: No change from 03/25/2021. Electronically Signed: Santana Bowling MD at 12:14 EDT Tel , Service support ,
== END ==
PROVIDERS: PCP Family Medicine; Referring Provider Internal Medicine Gastroenterology; Visit Provider Internal Medicine Gastroenterology
DX: R19.7 Diarrhea, unspecified (principal); R10.9 Unspecified abdominal pain; R63.4 Abnormal weight loss
CPT/HCPCS: 74177; Q9967

== ENCOUNTER → 2021-05-09 10:59 | Outpatient (CLI) | payer MEDICARE, OTHER, SELFPAY ==
[2021-03-26 16:15] VITALS: BMI 16.9
--- NOTE | 2021-05-09 11:00 | ART_ITS ---
Reason For Study: CLAUDICATION Procedure A bilateral lower extremity continuous wave Doppler with analog waveform analysis,segmental pressures,and ankle brachial indexes with exercise. Left Segmental Pressures Left brachial= 123mmHg. Left posterior tibial artery = 149mmHg. Left dorsalis pedis artery = 113mmHg. Left digit = 98 mmHg. The left dorsalis pedis waveforms are triphasic. The left posterior tibial artery waveforms are triphasic. Right Segmental Pressures Right brachial= 115mmHg. Right posterior tibial artery = 137mmHg. Right dorsalis pedis artery = 136mmHg. Right digit = 98 mmHg. The right dorsalis pedis waveforms are triphasic. The right posterior tibial artery waveforms are triphasic. Indices The right ankle brachial index by the dorsalis pedis is 1.11. The right ankle brachial index by the posterior tibial artery is 1.11. The right digital-brachial index is .80. The left ankle brachial index by the posterior tibial artery is 1.21. The left resting ankle brachial index is .92. The left digital-brachial index is .8. VL/Lower Ext Art Exam w/ Exercise Interpretation Summary Normal resting bilateral lower extremity ankle-brachial indices with triphasic Doppler waveforms bilateral PT and DP. The right digital brachial index is 0.8 and the left digital brachial index is 0.8 both normal With exercise the right MACY goes from 1.11 to immediately after exercise at 1.1 5 which is normal With exercise the left MACY goes from 1.21 to immediately after exercise at 1.26 which is normal Ordering Physician: Josias Knowles Referring Physician: Josias Knowles Performed By: SUZY KLINE RDCS
== END ==
PROVIDERS: PCP Family Medicine; Referring Provider Family Medicine; Visit Provider Family Medicine
DX: I73.9 Peripheral vascular disease, unspecified (principal)
CPT/HCPCS: 93924

== ENCOUNTER → 2022-03-14 | Outpatient (CLI) | payer MEDICARE, OTHER, SELFPAY ==
[2022-03-14 10:12] LABS: Absolute Lymphocyte Count 1.78 X10^3/uL (0.83-4.51); Absolute Neutrophil Count 3.5 X10^3/uL (2.0-7.7); Basophil% 1.7 % (0-1); Eosinophil# 0.12 X10^3/uL; Hemoglobin 13.8 g/dL (12.0-15.0); Lymphocyte # 1.78 X10^3/ul (0.83-4.51); Lymphocyte % 29.8 % (19-41); Mean Corp Hgb Conc 32.9 g/dL (32-36); Mean Corpuscular Hgb 30.7 pg (27.0-32.0); Mean Corpuscular Volume 93.5 fL (81-99); Mean Platelet Vol. 10.3 fl (6.2-12.0); Monocyte# 0.45 X10^3/uL; Monocyte% 7.5 % (0-10); NRBC Flagged by Analyzer 0 % (0-5); Neutrophil # 3.51 X10^3/uL (2.7-7.7); Neutrophil % 58.7 % (47-70); Platelet Count 189 K/mm3 (150-450); RBC Distribution Width CV 12.6 % (11.6-14.6); RBC Distribution Width SD 43.5 fl (35.1-43.9); Red Blood Count 4.49 M/mm3 (4.2-5.4)
[2022-03-14 10:21] LABS: Erythrocyte Sedimentation Rate 5 mm/hr (0-30)
[2022-03-14 11:11] LABS: ALB/GLOB Ratio 1.3 RATIO (0.9-2.4); AST(SGOT) 19 U/L (15-37); Alanine Aminotransfer ALT/SGPT 21 U/L (13-56); Albumin, Serum 4.2 g/dL (3.2-5.0); Alkaline Phosphatase 57 U/L (45-117); Anion Gap 7 (5-15); BUN 13 mg/dL (7-18); BUN/Creat Ratio 15.6 RATIO (10-20); Calcium,Total 8.9 mg/dL (8.5-10.1); Chloride 105 mmol/L (98-107); Creatinine, Serum 0.83 mg/dL (0.55-1.02); EST Glomerular Filtration Rate 72 mL/min (>60); Est Glom Filt Rate - Afr Amer 87 mL/min (>60); Free T3 2.2 pg/mL (2.18-3.98); Globulin 3.3 g/dL (2.2-4.2); Glucose 107 mg/dL (74-106); Potassium 3.1 mmol/L (3.5-5.1); Prealbumin 18.3 mg/dL (20.0-40.0); Protein, Total 7.5 g/dL (6.4-8.2); Sodium Level 140 mmol/L (136-145); T4 Free Direct 1.37 ng/dL (0.76-1.46); Thyroid Stim Hormone (TSH) 3.36 uIU/mL (0.358-3.74)
[2022-03-15 10:29] LABS: DHEA Sulfate 64.5 ug/dL (20.4-186.6)
[2022-03-16 16:06] LABS: ANTINUCLEAR ANTIBODIES DIRECT Negative (Negative)
== END | disposition home or self-care (01) ==
PROVIDERS: PCP Family Medicine; Visit Provider Family Medicine
DX: M13.0 Polyarthritis, unspecified (principal); E46 Unspecified protein-calorie malnutrition; E03.9 Hypothyroidism, unspecified; R76.8 Other specified abnormal immunological findings in serum; R63.0 Anorexia; K52.832 Lymphocytic colitis; L65.9 Nonscarring hair loss, unspecified
CPT/HCPCS: 36415; 80053; 82533; 82627; 84134; 84439; 84443; 84481; 85025; 85652; 86038; 82626

== ENCOUNTER → 2022-03-24 | Outpatient (CLI) | payer MEDICARE, OTHER, SELFPAY ==
[2022-03-24 15:52] LABS: ALB/GLOB Ratio 1.1 RATIO (0.9-2.4); AST(SGOT) 14 U/L (15-37); Alanine Aminotransfer ALT/SGPT 17 U/L (13-56); Albumin, Serum 3.5 g/dL (3.2-5.0); Alkaline Phosphatase 51 U/L (45-117); Anion Gap 5 (5-15); BUN 16 mg/dL (7-18); BUN/Creat Ratio 23.1 RATIO (10-20); Calcium,Total 8.8 mg/dL (8.5-10.1); Chloride 106 mmol/L (98-107); Creatinine, Serum 0.69 mg/dL (0.55-1.02); EST Glomerular Filtration Rate 89 mL/min (>60); Est Glom Filt Rate - Afr Amer 107 mL/min (>60); Globulin 3.3 g/dL (2.2-4.2); Glucose 96 mg/dL (74-106); Potassium 3.9 mmol/L (3.5-5.1); Protein, Total 6.8 g/dL (6.4-8.2); Sodium Level 139 mmol/L (136-145)
== END | disposition home or self-care (01) ==
LOC: MTLAB 11:48
PROVIDERS: PCP Family Medicine; Referring Provider Family Medicine; Visit Provider Family Medicine
DX: R79.89 Other specified abnormal findings of blood chemistry (principal)
CPT/HCPCS: 36415; 80053; 82533

== ENCOUNTER → 2022-03-25 | Outpatient (CLI) | payer MEDICARE, OTHER, SELFPAY ==
[2022-04-01 18:08] LABS: Metanephrine, Ur 54 ug/L (Undefined); Normetanephrines, 24Ur 180 ug/24 hr (131-612); Normetanephrines, Ur 164 ug/L (Undefined)
[2022-04-01 18:50] LABS: Metanephrines, 24Ur 59 ug/24 hr (36-209)
== END | disposition home or self-care (01) ==
LOC: MTLAB 12:54
PROVIDERS: PCP Family Medicine; Referring Provider Family Medicine; Visit Provider Family Medicine
DX: R79.89 Other specified abnormal findings of blood chemistry (principal)
CPT/HCPCS: 81050; 83835

== ENCOUNTER → 2022-10-05 | Outpatient (CLI) | payer MEDICARE, OTHER, SELFPAY ==
[2022-10-05 15:03] LABS: Hematocrit 42.5 % (37-47); Hemoglobin 14.1 g/dL (12.0-15.0); Mean Corp Hgb Conc 33.2 g/dL (32-36); Mean Corpuscular Hgb 30.5 pg (27.0-32.0); Mean Platelet Vol. 10.2 fl (6.2-12.0); Platelet Count 193 K/mm3 (150-450); RBC Distribution Width CV 12.4 % (11.6-14.6); RBC Distribution Width SD 41.9 fl (35.1-43.9); Red Blood Count 4.62 M/mm3 (4.2-5.4); White Blood Count 7.2 K/mm3 (4.4-11.0)
[2022-10-05 18:35] LABS: Anion Gap 7 (5-15); BUN 12 mg/dL (7-18); BUN/Creat Ratio 16.3 RATIO (10-20); Calcium,Total 8.6 mg/dL (8.5-10.1); Chloride 108 mmol/L (98-107); Creatinine, Serum 0.74 mg/dL (0.55-1.02); EST Glomerular Filtration Rate 82 mL/min (>60); Est Glom Filt Rate - Afr Amer 100 mL/min (>60); Glucose 125 mg/dL (74-106); Potassium 2.9 mmol/L (3.5-5.1); Sodium Level 145 mmol/L (136-145)
== END | disposition home or self-care (01) ==
LOC: MFPLAB 13:42
PROVIDERS: Nurse Practitioner Family; PCP Family Medicine; Visit Provider Family Medicine
DX: R19.7 Diarrhea, unspecified (principal)
CPT/HCPCS: 36415; 80048; 85027

== ENCOUNTER → 2022-10-06 | Outpatient (CLI) | payer MEDICARE, OTHER, SELFPAY | END | disposition home or self-care (01) | PROVIDERS: PCP Family Medicine; Referring Provider Family Medicine; Visit Provider Nurse Practitioner Family | DX: R19.7 Diarrhea, unspecified (principal) | CPT/HCPCS: 87177; 87209; 87493; 87506 ==

== ENCOUNTER 2024-03-20 15:49 | Inpatient (IN) | payer MEDICARE, OTHER, SELFPAY ==
[2024-03-20] VITALS (7 sets, daily range): BP systolic 104–137; BP diastolic 43–90; PULSE 73–84; RESP 15–18; TEMP 36.7–37.4; O2SAT 96–99; BMI 17.7; BMI 22.1
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
--- NOTE | 2024-03-20 16:43 | RAD_ITS ---
STUDY: X-RAY - RIGHT ELBOW REASON FOR EXAM: Female, 73 years old. pain TECHNIQUE: 2 view(s) of the elbow. COMPARISON: None. FINDINGS: Normal visualized humerus, radius and ulna. Normal radiocapitellar and ulnotrochlear articulations. The soft tissue structures are unremarkable. RAD/Elbow 2 Views IMPRESSION: Normal x-ray examination of the elbow. Electronically Signed: Rakesh Elizabeth MD at 18:23 EDT ,
--- NOTE | 2024-03-20 16:43 | RAD_ITS ---
STUDY: X-RAY - PELVIS REASON FOR EXAM: Female, 73 years old. right hip pain TECHNIQUE: One view of the pelvis was obtained. COMPARISON: None. FINDINGS: There is a non-specific bowel gas pattern. Normal visualized soft tissue structures. Normal bilateral iliac wings, sacroiliac joints and visualized sacrum. . Postsurgical changes of the pubis bilaterally. Normal ischial tuberosities. Postsurgical changes of the SI joints Acute impacted impacted intertrochanteric fracture of the right hip with overlapping and varus angulation of fracture fragments Normal visualized left femoral head. Normal left acetabulum. Normal left hip joint. RAD/Pelvis 1 or 2 Views IMPRESSION: Acute fracture of the right hip Electronically Signed: Rakesh Elizabeth MD at 18:27 EDT ,
--- NOTE | 2024-03-20 16:44 | EKG12_ITS ---
Test Reason : FALL Blood Pressure : / mmHG Vent. Rate : 069 BPM Atrial Rate : 069 BPM P-R Int : 158 ms QRS Dur : 066 ms QT Int : 388 ms P-R-T Axes : 070 064 067 degrees QTc Int : 415 ms Normal sinus rhythm Normal ECG Confirmed by Parker St ([id number]), business editor LIGIA TESFAYE ([id number]) on 03/21/2024 10:00:16 AM Referred By: Confirmed By:Parker St
[2024-03-20] MEDS: Ondansetron 4 MG/2 ML Vial IV (16:50)
[2024-03-20] MEDS: Morphine 4 MG/ML Syringe IV ×2 (16:51→18:15)
[2024-03-20] MEDS: Ketorolac 15 MG/ML Vial IV (16:51)
[2024-03-20] MEDS: 0.9% Normal Saline (500mL Bag) 500 ML 1000 ML IV (16:58)
[2024-03-20 17:01] LABS: Hemoglobin 14.2 g/dL (12.0-15.0); Mean Corp Hgb Conc 32.3 g/dL (32-36); Mean Corpuscular Hgb 28.6 pg (27.0-32.0); Mean Corpuscular Volume 88.5 fL (81-99); Mean Platelet Vol. 9.3 fl (6.2-12.0); Platelet Count 219 K/mm3 (150-450); RBC Distribution Width CV 12.8 % (11.6-14.6); RBC Distribution Width SD 41.7 fl (35.1-43.9); Red Blood Count 4.97 M/mm3 (4.2-5.4); White Blood Count 12.7 K/mm3 (4.4-11.0)
--- NOTE | 2024-03-20 17:09 | RAD_ITS ---
STUDY: X-RAY - RIGHT FEMUR REASON FOR STUDY: Female, 73 years old. right hip pain TECHNIQUE: 3 view(s) of the femur. COMPARISON: None. FINDINGS: Acute impacted intertrochanteric fracture with overlapping and varus angulation of fracture fragments.. The remainder of the distal femoral shaft is intact. Postsurgical changes of proximal tibia. RAD/Femur Min 2 Views IMPRESSION: Acute displaced angulated intertrochanteric fracture of the right hip Electronically Signed: Rakesh Elizabeth MD at 18:22 EDT ,
--- NOTE | 2024-03-20 17:10 | RAD_ITS ---
STUDY: X-RAY CHEST REASON FOR EXAM: Female, 73 years old. pre-op visit TECHNIQUE: AP portable COMPARISON: None. FINDINGS: The lungs are clear and expanded. There is no demonstrated pleural abnormality. Normal size heart. Normal mediastinum and elayne. Normal visualized pulmonary arteries. Mildly tortuous aortic arch and descending thoracic aorta. Dorsal spine demonstrates levoscoliosis or splinting secondary to muscle spasm. Normal visualized ribs, clavicles, and shoulders. There is no demonstrated abnormality of the visualized soft tissue structures of the upper abdomen. RAD/Chest 1 View (Portable) IMPRESSION: No acute cardiopulmonary pathology Electronically Signed: Rakesh Elizabeth MD at 18:24 EDT ,
[2024-03-20 17:17] LABS: Anion Gap 3 (5-15); BUN 15 mg/dL (7-18); Calcium,Total 9.2 mg/dL (8.5-10.1); Chloride 105 mmol/L (98-107); Creatinine, Serum 0.83 mg/dL (0.55-1.02); EST Glomerular Filtration Rate 71 mL/min (>60); Est Glom Filt Rate - Afr Amer 86 mL/min (>60); Estimated Creatinine Clearance 47.55 ml/min; Glucose 125 mg/dL (74-106); Potassium 4.3 mmol/L (3.5-5.1); Sodium Level 137 mmol/L (136-145)
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
[2024-03-20] MEDS: oxyCODONE 5 MG Tablet PO (20:38)
[2024-03-20] MEDS: 0.9% Normal Saline (1000mL) 1,000 ML 125 ML IV (20:38)
[2024-03-20] MEDS: 0.9% Saline Lock 10 ML Syringe IV (20:38)
[2024-03-20] MEDS: Acetaminophen 325 MG Tablet 650 MG PO (20:39)
[2024-03-20] MEDS: DOXEPIN HCL 50 MG CAPSULE PO (21:24)
[2024-03-21] VITALS (16 sets, daily range): BP systolic 92–167; BP diastolic 43–151; PULSE 66–101; RESP 16–20; TEMP 36.2–37.3; O2SAT 93–100; BMI 22.1
[2024-03-21] MEDS: 0.9% Normal Saline (1000mL) 1,000 ML 125 ML IV (04:15)
[2024-03-21] MEDS: Ketorolac 15 MG/ML Vial IV ×3 (04:25→21:48)
[2024-03-21] MEDS: Acetaminophen 325 MG Tablet 650 MG PO (04:25)
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
[2024-03-21] MEDS: oxyCODONE 5 MG Tablet PO ×2 (06:50→21:48)
[2024-03-21 07:07] LABS: Absolute Lymphocyte Count 1.51 X10^3/uL (0.83-4.51); Absolute Neutrophil Count 4.1 X10^3/uL (2.0-7.7); Basophil# 0.06 X10^3/uL; Basophil% 0.9 % (0-1); Eosinophil# 0.09 X10^3/uL; Eosinophils% 1.4 % (0-5); Hematocrit 33.9 % (37-47); Hemoglobin 10.7 g/dL (12.0-15.0); Lymphocyte # 1.51 X10^3/ul (0.83-4.51); Lymphocyte % 23.4 % (19-41); Mean Corp Hgb Conc 31.6 g/dL (32-36); Mean Corpuscular Hgb 28.5 pg (27.0-32.0); Mean Corpuscular Volume 90.4 fL (81-99); Mean Platelet Vol. 9.5 fl (6.2-12.0); Monocyte# 0.65 X10^3/uL; Monocyte% 10.1 % (0-10); NRBC Flagged by Analyzer 0 % (0-5); Neutrophil # 4.09 X10^3/uL (2.7-7.7); Neutrophil % 63.6 % (47-70); Platelet Count 162 K/mm3 (150-450); RBC Distribution Width CV 13.1 % (11.6-14.6); RBC Distribution Width SD 42.6 fl (35.1-43.9); Red Blood Count 3.75 M/mm3 (4.2-5.4); White Blood Count 6.4 K/mm3 (4.4-11.0)
[2024-03-21 07:24] LABS: Anion Gap 1 (5-15); BUN 12 mg/dL (7-18); BUN/Creat Ratio 15.2 RATIO (10-20); Calcium,Total 7.8 mg/dL (8.5-10.1); Chloride 111 mmol/L (98-107); Creatinine, Serum 0.79 mg/dL (0.55-1.02); EST Glomerular Filtration Rate 76 mL/min (>60); Est Glom Filt Rate - Afr Amer 92 mL/min (>60); Estimated Creatinine Clearance 58.63 ml/min; Glucose 101 mg/dL (74-106); Potassium 4.1 mmol/L (3.5-5.1); Sodium Level 139 mmol/L (136-145)
[2024-03-21 07:53] LABS: Vitamin D,25 Hydroxy 16.7 ng/mL
--- NOTE | 2024-03-21 10:02 | CASEMGMT ---
Social Work SW met with pt to discuss advance directives.? Pt confirms she has completed a living will and health care POA naming Kandy Crowder, daughter. Pt notified that documents are not on file at [facility] and SW requested they be brought in for scanning into the EMR.? JUD Del Angel
[2024-03-21] MEDS: 0.9% Saline Lock 10 ML Syringe IV (11:18)
--- NOTE | 2024-03-21 11:28 | CASEMGMT ---
DESTINEE ROD Assessment: Face to Face with pt for initial transition planning/care coordination assessment. DESTINEE ROD introduced self and role at [facility], pt voices understanding and consents to assessment. Pt laying in bed in no distress. Pt is A&O x4 and answers all questions appropriately at this time. Care providers, pharmacy, and demographics verified/updated. Admitting Dx: R Hip Fracture due to mechanical fall PCP: [facility] Specialists: Pt Denies Preferred Pharmacy: [facility] Insurance: Medicare - Primary, Physician [place] - secondary Prescription Benefit: yes LNOK: Kandy Crowder - Daughter, Campbell Espino - son Living Arrangements: Pt lives with daughter, 2 granddaughters and great granddaughter in 2 story home with 5 steps and handrails to enter. Pt stated was I with ADLs needed assistance with IADLs. Stated she would be interested in rehab upon DC. Transportation: Pt drives self and denies concerns with transportation. Family able to assist until able to drive. DME: Shower chair, cane, walker HHC/SNF: Denies Hx of [facility]. Pt stated she was previously on [facility] rehab unit several years ago. Pt states no concerns with going home at time of dc. Pt states no further concerns/needs. CM to follow. Advised pt to ask CM if any further question/concerns/needs arise, voices understanding. Pt Goal: Rehab Plan: TBD pending surgery and therapy. Dominique FELIPE CM
--- NOTE | 2024-03-21 12:02 | PCM.PN.HOSP ---
Subjective Subjective Doing well, no issues overnight. Right leg is externally rotated pain is controlled Objective Data Objective Data Vital Signs: Vital Signs Temp Pulse Resp BP Pulse Ox O2 Del Method 98.1 F 66 18 98/49 L 97 Room Air 03/21/24 11:39 03/21/24 11:39 03/21/24 11:39 03/21/24 11:39 03/21/24 11:39 03/21/24 11:39 Oxygen Delivery Method Room Air Weight: 136 lb 14.513 oz Body Mass Index (BMI) 22.1 Intake & Output: Intake and Output for Last 24 Hours 03/20/24 03/21/24 03/22/24 03:59 03:59 03:59 Intake Total 500 / 500 1879.16 / 1879.16 Output Total 0 / 0 450 / 450 Balance 500 / 500 1429.16 / 1429.16 Lab / Micro Data 03/21/24 06:30 03/21/24 06:30 Labs: Laboratory Results - last 24 hr 03/20/24 16:45: WBC 12.7 H, RBC 4.97, Hgb 14.2, Hct 44.0, MCV 88.5, MCH 28.6, MCHC 32.3, RDW Std Deviation 41.7, RDW Coeff of Charley 12.8, Plt Count 219, MPV 9.3, Sodium 137, Potassium 4.3, Chloride 105, Carbon Dioxide 29.0, Anion Gap 3 L, BUN 15, Creatinine 0.83, Estim Creat Clear Calc 47.55, Est GFR (MDRD) Af Amer 86, Est GFR (MDRD) Non-Af 71, BUN/Creatinine Ratio 18.0, Glucose 125 H, Calcium 9.2 03/21/24 06:30: WBC 6.4, RBC 3.75 L, Hgb 10.7 L, Hct 33.9 L, MCV 90.4, MCH 28.5, MCHC 31.6 L, RDW Std Deviation 42.6, RDW Coeff of Charley 13.1, Plt Count 162, MPV 9.5, Immature Gran % (Auto) 0.600, Neut % (Auto) 63.6, Lymph % (Auto) 23.4, [place] % (Auto) 10.1 H, Eos % (Auto) 1.4, Baso % (Auto) 0.9, Absolute Neuts (auto) 4.1, Absolute Lymphs (auto) 1.51, Nucleated RBC % 0, Sodium 139, Potassium 4.1, Chloride 111 H, Carbon Dioxide 27.0, Anion Gap 1 L, BUN 12, Creatinine 0.79, Estim Creat Clear Calc 58.63, Est GFR (MDRD) Af Amer 92, Est GFR (MDRD) Non-Af 76, BUN/Creatinine Ratio 15.2, Glucose 101, Calcium 7.8 L, Vitamin D 25-Hydroxy 16.7, Blood Type A NEGATIVE, Antibody Screen NEGATIVE Radiography Diagnostic Testing: Radiology Impression Elbow X-Ray 03/20/24 16:43 IMPRESSION: Normal x-ray examination of the elbow. Electronically Signed: Rakesh Elizabeth MD at 18:23 EDT , Pelvis X-Ray 03/20/24 16:43 IMPRESSION: Acute fracture of the right hip Electronically Signed: Rakesh Elizabeth MD at 18:27 EDT , Femur X-Ray 03/20/24 17:09 IMPRESSION: Acute displaced angulated intertrochanteric fracture of the right hip Electronically Signed: Rakesh Elizabeth MD at 18:22 EDT , Chest X-Ray 03/20/24 17:10 IMPRESSION: No acute cardiopulmonary pathology Electronically Signed: Rakesh Elizabeth MD at 18:24 EDT , Physical Exam Narrative General: Alert, Oriented x3, Cooperative, No apparent distress HEENT: Atraumatic, PERRLA, EOMI, Normocephalic Oral: Moist Mucosa Neck: Supple, No JVD Lungs: Diminished, Normal air movement, No rhonchi, No wheeze, No rales Cardiovascular: Regular rate, Regular Rhythm, Normal S1, Normal S2, No murmurs Abdomen: Soft, Non Tender, Non-Distended, No Hepato-splenomegaly Extremities: No edema, Capillary Refill Less than 3 Seconds Skin: No rashes, No breakdown Musculoskeletal: Tenderness to palpation of right hip with external rotation of right lower extremity Neurological: No focal neurological deficits, Motor Exam 5/5 strength throughout, Sensory exam intact to light touch and pain Psych/Mental Status: Normal Affect, Appropriate Assessment & Plan Assessment/Plan (1) Right femoral fracture: QUALIFIERS: Encounter type: initial encounter Femur location: intertrochanteric Fracture type: closed Fracture alignment: displaced Qualified Code(s): S72.141A - Displaced intertrochanteric fracture of right femur, initial encounter for closed fracture PLAN: Plan 1. Right intertrochanteric fracture secondary to mechanical fall ? Plan for operative repair today ? Continue with pain management ? Can restart diet postoperatively ? PT/OT ? May need placement at SNF 2. Tobacco abuse ? Stable ? Discussed cessation ? Continue with nicotine patch DVT: Lovenox Charges/Coding Visit Charges Inpatient E&M: 65471 Subs Hosp L2
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
--- NOTE | 2024-03-21 12:42 | CASEMGMT ---
Social Work SW spoke w/pt and daughter Kandy in room in regard to discharge plan. They are in agreement that pt should go somewhere after surgery for rehab. SW provided to pt and daughter a list via [facility] of senior care facilities in network w/pt's insurance, in preferred geographic area and complete w/quality and resource use data. Pt states has been to TCU before and would like to again go to TCU. SW explained will make the referral tomorrow once pt has had surgery and initial PT/OT. SW explained if TCU cannot take pt we can talk about other options. Both state understanding. Plan: SNF, facility TBD, first choice is TCU. SW to follow up w/referral tomorrow. GAYE Massey
--- NOTE | 2024-03-21 13:34 | NURSING ---
Pt sent to OR
[2024-03-21] MEDS: 0.9% Normal Saline (1000mL) 1,000 ML 15 ML IV (13:47)
[2024-03-21] MEDS: Cefazolin 2 GM in 0.9% Normal Saline (100mL Bag) 100 ML IV (15:51)
[2024-03-21] MEDS: TRANEXAMIC ACID 1,000 MG in 0.9% Normal Saline (100mL Bag) 100 ML 440 MG IV (16:00)
--- NOTE | 2024-03-21 16:10 | RAD_ITS ---
STUDY: X-RAY - PELVIS AND RIGHT HIP REASON FOR EXAM: Female, 73 years old. FX TECHNIQUE: 2 views of the pelvis and hip. COMPARISON: None. FINDINGS: 78 seconds of fluoroscopy of the right hip was utilized operating room during open reduction internal fixation of fracture of the intertrochanteric femur with a femoral neck compression screw and a short intramedullary martín and 8 images are cemented for interpretation. . RAD/HIP, UNI W/ Pelvis 2-3 Views IMPRESSION: Fluoroscopy during open reduction internal fixation of fracture of the intertrochanteric femur. Electronically Signed: Santana Bowling MD at 19:45 EDT ,
--- NOTE | 2024-03-21 17:03 | OP.PCM_ITS ---
Report of Operation Date of Procedure: 03/21/24 Description of Surgical Findings:: Preoperative diagnosis: Right intertrochanteric proximal femur fracture Postoperative diagnosis: Right intertrochanteric proximal femur fracture Procedure: Treatment of intertrochanteric hip fracture with intramedullary nail right femur Surgeon: Tesfaye Alvarenga DO Anesthesia: General endotracheal Anesthesiologist: Dr. Salazar Complications: None Drains: None Estimated blood loss: 200 cc Urinary output: None recorded IV fluids: Per anesthesia record Specimens: None Surgical implants: Serena Gamma3 Cephalomedullary Nail 125 degree 11 mm x 180 mm right, 10.5 mm x 95 mm lag screw, Interlocking screw size 5 mm x 35 mm Surgical indications: This is a 73-year-old F who presents presented to [facility] emergency department after a mechanical fall from standing height yesterday while she was going outside for a cigarette. She fell onto her right side. She is brought to the emergency department where x-rays revealed a displaced right intertrochanteric femur fracture. Patient was admitted under the service to hospitalist. Orthopedics was consulted for surgical recommendations.I recommended cephalomedullary nail fixation of her right intertrochanteric proximal femur fracture. The risks, benefits, alternatives to procedure reviewed with the patient. The risks of the surgery included bleeding, infection, loss of life or limb, malunion, nonunion, damage to vital structures, neurovascular injury, failure of orthopedic hardware, need for additional surgery, persistent pain or disability, risk of anesthesia. The patient expressed understanding of these risks and agreed to proceed with surgery. Blood consent was also obtained. Description of procedure: Patient was seen in preoperative holding area. She was identified by name, medical record number, date of . The operative extremity was marked with a surgical marker. We confirmed informed consent with the patient and questions were answered to her satisfaction. Patient was brought to the operative suite, and general anesthesia was induced on her hospital bed. Endotracheal tube was secured. After adequate anesthesia, patient was transferred to a fracture table with all bony prominences being well-padded. A perineal post was placed to secure the patient on the table. We then applied a ski boot which was well-padded to the operative extremity. The well leg was dropped into extension and secured to the axial post of the fracture table with a pillow and Coban. The right arm was brought across patient's chest with a blanket on her chest. We then performed a closed reduction maneuver with external rotation, traction, internal rotation and adduction. Fluoroscopic images were obtained. Fracture appeared to be acceptably reduced following closed reduction. We then prepped and draped the right lower extremity in normal, sterile orthopedic fashion. A timeout was performed with all parties in attendance in agreement with the side, site, and operation be performed. 2 g Ancef and 1 g IV TXA was administered prior to incision. No concerns were voiced and we elected to proceed. I first used fluoroscopy to bam the level of the fracture and planned incision for insertion of the cephalomedullary nail device. In line with the long axis of the femur, 4 fingerbreadths proximal to the tip of the greater trochanter, a full-thickness skin incision was planned.. Skin was sharply incised with 10 blade scalpel, carried into the subcutaneous tissues. The IT band was encountered and split and planned trajectory of the nail placement. The greater trochanter was then able to be palpated digitally. I then placed a threaded guidewire just medial to the tip of the greater trochanter and in the anterior third of it on the lateral. Opening reamer was then placed over top of the guidewire after placement was confirmed on C arm. Reduction was again confirmed. We selected her nail to be 18 cm x 11 mm diameter. Reamers were removed. Nail was assembled on the back table. Intramedullary devices then impacted to appropriate depth. Rotation was confirmed on the lateral projection. Drill sleeve was placed through the targeting guide. We drilled the pin for the lag screw at an appropriate position and depth, tip to apex distance less than 25 mm on AP and lateral combined. Depth gauge was used to measure the length of the screw, 95 mm. Prior to drilling, I applied a lateral translation of the femoral neck with a bone hook placed to the lag screw incision. We then used the cannulated drill to drill to an appropriate depth. Drill was removed, drill pin left in place. Lag screw was placed over top of the drill pin and tightened to an appropriate depth. Setscrew was then placed and tightened, and then turned back a quarter turn to allow the lag screw to slide. I then drilled for a static interlocking screw in the distal portion of the screw utilizing the outrigger. Skin was incised full-thickness down the level of the IT band which was also split in line with the skin incision. I drilled bicortically through the distal interlocking slot of the nail. I measured for a 35 mm interlocking screw which was placed by hand with excellent purchase. Instruments were remove d as well as the outrigger for the nail. Final fluoroscopic images were obtained at the hip. Final fluoroscopic images were obtained. We irrigated the wounds copiously with normal saline solution. Hemostasis was excellent at this point. We then closed the deeper layers, IT band with 0 Vicryl. Intradermal buried stitches of 2-0 Vicryl were utilized and skin finally reapproximated with skin jeri. Sterile compression dressing of Xeroform, 4 x 4's, and Tegaderm was applied. Patient tolerated procedure well without complication. She was transferred back to her hospital bed and subsequently to PACU in stable condition. Intraoperative medications: 2 g Ancef IV, 1 g IV TXA Post Operative Plan: Weightbearing: Weightbearing as tolerated right lower extremity with a walker Antibiotics: Ancef 2 g x 3 doses postoperatively, 1 dose given preoperatively DVT Prophylaxis: Lovenox to start tomorrow morning Higgins: None Dressing: Dry sterile dressing changes daily and as needed for saturation X-Rays: 2 weeks postop in the office Follow-up: 2 weeks post-operatively with me in the office.
[2024-03-21] MEDS: Calcium Carbonate 500 MG Tablet PO (18:25)
[2024-03-21] MEDS: Senna/Docusate Sodium 1 Tablet 2 TABLET PO (21:48)
[2024-03-21] MEDS: DOXEPIN HCL 50 MG CAPSULE PO (21:49)
[2024-03-21] MEDS: 0.9% Normal Saline (250mL Bag) 250 ML 15 ML IV (21:55)
[2024-03-22] VITALS (8 sets, daily range): BP systolic 85–116; BP diastolic 42–64; PULSE 63–94; RESP 16–18; TEMP 36.4–37.1; O2SAT 95–98
[2024-03-22] MEDS: Cefazolin 2 GM in 0.9% Normal Saline (100mL Bag) 100 ML IV ×3 (00:04→15:36)
[2024-03-22] MEDS: Acetaminophen 325 MG Tablet 650 MG PO ×3 (00:10→20:59)
[2024-03-22] MEDS: 0.9% Normal Saline (500mL Bag) 500 ML 999 ML IV (03:10)
[2024-03-22] MEDS: Ketorolac 15 MG/ML Vial IV ×3 (04:02→16:13)
[2024-03-22 08:40] LABS: Absolute Lymphocyte Count 0.76 X10^3/uL (0.83-4.51); Basophil# 0.01 X10^3/uL; Basophil% 0.1 % (0-1); Hematocrit 27.6 % (37-47); Hemoglobin 8.9 g/dL (12.0-15.0); Lymphocyte # 0.76 X10^3/ul (0.83-4.51); Lymphocyte % 10.3 % (19-41); Mean Corp Hgb Conc 32.2 g/dL (32-36); Mean Corpuscular Hgb 29.1 pg (27.0-32.0); Mean Corpuscular Volume 90.2 fL (81-99); Mean Platelet Vol. 9.8 fl (6.2-12.0); Monocyte# 0.58 X10^3/uL; Monocyte% 7.9 % (0-10); NRBC Flagged by Analyzer 0 % (0-5); Neutrophil # 5.97 X10^3/uL (2.7-7.7); Platelet Count 151 K/mm3 (150-450); RBC Distribution Width CV 12.8 % (11.6-14.6); RBC Distribution Width SD 42.3 fl (35.1-43.9); Red Blood Count 3.06 M/mm3 (4.2-5.4); White Blood Count 7.4 K/mm3 (4.4-11.0)
[2024-03-22 09:08] LABS: Anion Gap 3 (5-15); BUN 10 mg/dL (7-18); BUN/Creat Ratio 14.8 RATIO (10-20); Calcium,Total 8.2 mg/dL (8.5-10.1); Chloride 111 mmol/L (98-107); Creatinine, Serum 0.68 mg/dL (0.55-1.02); EST Glomerular Filtration Rate 91 mL/min (>60); Est Glom Filt Rate - Afr Amer 110 mL/min (>60); Estimated Creatinine Clearance 58.63 ml/min; Glucose 109 mg/dL (74-106); Potassium 4.4 mmol/L (3.5-5.1); Sodium Level 138 mmol/L (136-145)
[2024-03-22] MEDS: Calcium Carbonate 500 MG Tablet PO ×3 (09:54→16:10)
[2024-03-22] MEDS: Senna/Docusate Sodium 1 Tablet 2 TABLET PO ×2 (09:54→20:59)
[2024-03-22] MEDS: Enoxaparin 40 MG/0.4 ML Syringe SC (09:54)
[2024-03-22] MEDS: 0.9% Saline Lock 10 ML Syringe IV ×3 (10:17→21:02)
--- NOTE | 2024-03-22 11:06 | CASEMGMT ---
Social Work Referral made to TCU and they are able to accept pt on 03/23. SW met with pt and informed of this and pt is agreeable to discharge plan. Pt states that she will notify family and denies need for SW to to call. Plan: TCU, can discharge on 03/23 [facility]
--- NOTE | 2024-03-22 11:51 | PN.HOSP_ITS ---
Subjective Subjective Doing well, had surgery yesterday. Pain is somewhat controlled Objective Data Objective Data Vital Signs: Vital Signs Temp Pulse Resp BP Pulse Ox O2 Del Method O2 Flow Rate 97.9 F 65 18 94/51 L 96 Room Air 2 03/22/24 06:32 03/22/24 06:32 03/22/24 06:32 03/22/24 06:32 03/22/24 07:04 03/22/24 07:04 03/21/24 18:27 Oxygen Flow Rate (L/min) 2 Oxygen Delivery Method Room Air Weight: 136 lb 14.513 oz Body Mass Index (BMI) 22.1 Intake & Output: Intake and Output for Last 24 Hours 03/21/24 03/22/24 03/23/24 03:59 03:59 03:59 Intake Total 500 / 500 2759.16 / 2759.16 597.25 / 597.25 Output Total 0 / 0 1275 / 1275 Balance 500 / 500 1484.16 / 1484.16 597.25 / 597.25 Lab / Micro Data 03/22/24 07:10 03/22/24 07:10 Labs: Laboratory Results - last 24 hr 03/22/24 07:10: WBC 7.4, RBC 3.06 L, Hgb 8.9 L, Hct 27.6 L, MCV 90.2, MCH 29.1, MCHC 32.2, RDW Std Deviation 42.3, RDW Coeff of Charley 12.8, Plt Count 151, MPV 9.8, Immature Gran % (Auto) 0.700, Neut % (Auto) 81.0 H, Lymph % (Auto) 10.3 L, [place] % (Auto) 7.9, Eos % (Auto) 0.0, Baso % (Auto) 0.1, Absolute Neuts (auto) 6.0, Absolute Lymphs (auto) 0.76 L, Nucleated RBC % 0, Sodium 138, Potassium 4.4, Chloride 111 H, Carbon Dioxide 24.0, Anion Gap 3 L, BUN 10, Creatinine 0.68, Estim Creat Clear Calc 58.63, Est GFR (MDRD) Af Amer 110, Est GFR (MDRD) Non-Af 91, BUN/Creatinine Ratio 14.8, Glucose 109 H, Calcium 8.2 L Radiography Diagnostic Testing: Radiology Impression Hip/Pelvis X-Ray 03/21/24 16:10 IMPRESSION: Fluoroscopy during open reduction internal fixation of fracture of the intertrochanteric femur. Electronically Signed: Santana Bowling MD at 19:45 EDT , Physical Exam Narrative General: Alert, Oriented x3, Cooperative, No apparent distress HEENT: Atraumatic, PERRLA, EOMI, Normocephalic Oral: Moist Mucosa Neck: Supple, No JVD Lungs: Diminished, Normal air movement, No rhonchi, No wheeze, No rales Cardiovascular: Regular rate, Regular Rhythm, Normal S1, Normal S2, No murmurs Abdomen: Soft, Non Tender, Non-Distended, No Hepato-splenomegaly Extremities: No edema, Capillary Refill Less than 3 Seconds Skin: No rashes, No breakdown, incision CDI Musculoskeletal: Tenderness to palpation of right hip Neurological: No focal neurological deficits, Motor Exam 5/5 strength throughout, Sensory exam intact to light touch and pain Psych/Mental Status: Normal Affect, Appropriate Assessment & Plan Assessment/Plan (1) Right femoral fracture: QUALIFIERS: Encounter type: initial encounter Femur location: intertrochanteric Fracture type: closed Fracture alignment: displaced Qualif ied Code(s): S72.141A - Displaced intertrochanteric fracture of right femur, initial encounter for closed fracture PLAN: Plan 1. Right intertrochanteric fracture secondary to mechanical fall status post repair 03/21/2024 ? Continue with pain management ? PT/OT ? May need placement at SNF 2. Tobacco abuse ? Stable ? Discussed cessation ? Continue with nicotine patch DVT: Lovenox Charges/Coding Visit Charges Inpatient E&M: 42696 Subs Hosp L2
[2024-03-22] MEDS: 0.9% Normal Saline (1000mL) 1,000 ML 100 ML IV (15:35)
--- NOTE | 2024-03-22 17:19 | PN.ORTHO_ITS ---
Subjective Subjective Patient seen and examined. Out of bed with therapy and nursing staff earlier today. She states her pain is currently well-controlled. She denies any fevers, chills, nausea or vomiting, chest pain or shortness of breath. Objective Data Objective Data Vital Signs: Vital Signs Temp Pulse Resp BP Pulse Ox O2 Del Method O2 Flow Rate 98.2 F 94 16 97/59 L 98 Room Air 2 03/22/24 15:31 03/22/24 17:18 03/22/24 15:31 03/22/24 17:18 03/22/24 15:31 03/22/24 15:31 03/21/24 18:27 Oxygen Flow Rate (L/min) 2 Oxygen Delivery Method Room Air Weight: 136 lb 14.513 oz Body Mass Index (BMI) 22.1 Intake & Output: Intake and Output for Last 24 Hours 03/20/24 03/21/24 03/22/24 23:59 23:59 23:59 Intake Total 500 / 500 2099.16 / 2099.16 1437.42 / 1437.42 Output Total 750 / 1075 875 / 875 Balance 500 / 500 1349.16 / 1024.16 562.42 / 562.42 Lab / Micro Data 03/22/24 07:10 03/22/24 07:10 Labs: Laboratory Results - last 24 hr 03/22/24 07:10: WBC 7.4, RBC 3.06 L, Hgb 8.9 L, Hct 27.6 L, MCV 90.2, MCH 29.1, MCHC 32.2, RDW Std Deviation 42.3, RDW Coeff of Charley 12.8, Plt Count 151, MPV 9.8, Immature Gran % (Auto) 0.700, Neut % (Auto) 81.0 H, Lymph % (Auto) 10.3 L, [place] % (Auto) 7.9, Eos % (Auto) 0.0, Baso % (Auto) 0.1, Absolute Neuts (auto) 6.0, Absolute Lymphs (auto) 0.76 L, Nucleated RBC % 0, Sodium 138, Potassium 4.4, Chloride 111 H, Carbon Dioxide 24.0, Anion Gap 3 L, BUN 10, Creatinine 0.68, Estim Creat Clear Calc 58.63, Est GFR (MDRD) Af Amer 110, Est GFR (MDRD) Non-Af 91, BUN/Creatinine Ratio 14.8, Glucose 109 H, Calcium 8.2 L Radiography Diagnostic Testing: Radiology Impression Hip/Pelvis X-Ray 03/21/24 16:10 IMPRESSION: Fluoroscopy during open reduction internal fixation of fracture of the intertrochanteric femur. Electronically Signed: Santana Bowling MD at 19:45 EDT , Physical Exam Narrative General - A&Ox3, NAD. VSS/AF Right lower extremity -incisional dressing C/D/I. SILT Sural, Saphenous, SPN, DPN, Tibial N. distributions. DP, PT 2+. BCR. DF, PF, EHL 5/5. No calf TTP. Assessment & Plan Assessment/Plan (1) Right femoral fracture: QUALIFIERS: Encounter type: initial encounter Femur location: intertrochanteric Fracture type: closed Fracture alignment: displaced Qualified Code(s): S72.141A - Displaced intertrochanteric fracture of right femur, initial encounter for closed fracture PLAN: POD# 1 s/p right femur CMN -Patient stable. Plan to continue to mobilize with therapy. Anticipate SNF. - Pain control - Medicine following for medical management - PT/OT -weightbearing as tolerated right lower extremity - DVT PPX -Multimodal with Lovenox, SCDs, MARGO olivae, early mobilization - Case management - D/C planning
[2024-03-22] MEDS: DOXEPIN HCL 50 MG CAPSULE PO (20:59)
[2024-03-23] MEDS: 0.9% Normal Saline (1000mL) 1,000 ML 100 ML IV (01:43)
[2024-03-23 01:45] VITALS: BP 106/62; PULSE 68; RESP 18; TEMP 36.7; O2SAT 93
[2024-03-23] MEDS: Ketorolac 15 MG/ML Vial IV ×2 (01:53→09:24)
[2024-03-23 05:59] VITALS: BP 112/61; PULSE 61; RESP 18; TEMP 36.4; O2SAT 95
[2024-03-23] MEDS: Acetaminophen 325 MG Tablet 650 MG PO ×2 (06:08→13:53)
[2024-03-23 07:04] VITALS: O2SAT 95
[2024-03-23 07:30] LABS: Absolute Lymphocyte Count 1.71 X10^3/uL (0.83-4.51); Basophil# 0.07 X10^3/uL; Basophil% 1.3 % (0-1); Eosinophil# 0.13 X10^3/uL; Eosinophils% 2.4 % (0-5); Hematocrit 27.9 % (37-47); Hemoglobin 8.7 g/dL (12.0-15.0); Lymphocyte # 1.71 X10^3/ul (0.83-4.51); Lymphocyte % 31.2 % (19-41); Mean Corp Hgb Conc 31.2 g/dL (32-36); Mean Corpuscular Hgb 28.9 pg (27.0-32.0); Mean Corpuscular Volume 92.7 fL (81-99); Mean Platelet Vol. 9.7 fl (6.2-12.0); Monocyte% 10.9 % (0-10); NRBC Flagged by Analyzer 0 % (0-5); Neutrophil # 2.95 X10^3/uL (2.7-7.7); Neutrophil % 53.8 % (47-70); Platelet Count 150 K/mm3 (150-450); RBC Distribution Width CV 13.2 % (11.6-14.6); RBC Distribution Width SD 44.3 fl (35.1-43.9); Red Blood Count 3.01 M/mm3 (4.2-5.4); White Blood Count 5.5 K/mm3 (4.4-11.0)
[2024-03-23 08:05] LABS: Anion Gap 2 (5-15); BUN 11 mg/dL (7-18); BUN/Creat Ratio 13.4 RATIO (10-20); Calcium,Total 7.8 mg/dL (8.5-10.1); Chloride 114 mmol/L (98-107); Creatinine, Serum 0.82 mg/dL (0.55-1.02); EST Glomerular Filtration Rate 72 mL/min (>60); Est Glom Filt Rate - Afr Amer 88 mL/min (>60); Glucose 93 mg/dL (74-106); Potassium 4.2 mmol/L (3.5-5.1); Sodium Level 142 mmol/L (136-145)
[2024-03-23 09:09] VITALS: BP 106/49; PULSE 62; RESP 16; TEMP 36.5; O2SAT 99
[2024-03-23] MEDS: 0.9% Saline Lock 10 ML Syringe IV (09:24)
[2024-03-23] MEDS: Senna/Docusate Sodium 1 Tablet 2 TABLET PO (09:31)
[2024-03-23] MEDS: Calcium Carbonate 500 MG Tablet PO ×3 (09:31→16:45)
[2024-03-23] MEDS: Enoxaparin 40 MG/0.4 ML Syringe SC (09:32)
--- NOTE | 2024-03-23 10:19 | PN.HOSP_ITS ---
Subjective Subjective Doing well, pain is controlled Objective Data Objective Data Vital Signs: Vital Signs Temp Pulse Resp BP Pulse Ox O2 Del Method O2 Flow Rate 97.7 F L 62 16 106/49 L 99 Room Air 2 03/23/24 09:09 03/23/24 09:09 03/23/24 09:09 03/23/24 09:09 03/23/24 09:09 03/23/24 09:09 03/21/24 18:27 Oxygen Flow Rate (L/min) 2 Oxygen Delivery Method Room Air Weight: 136 lb 14.513 oz Body Mass Index (BMI) 22.1 Intake & Output: Intake and Output for Last 24 Hours 03/22/24 03/23/24 03/24/24 03:59 03:59 03:59 Intake Total 2759.16 / 2759.16 1697.42 / 1697.42 Output Total 1275 / 1275 650 / 650 Balance 1484.16 / 1484.16 1047.42 / 1047.42 Lab / Micro Data 03/23/24 06:43 03/23/24 06:43 Labs: Laboratory Results - last 24 hr 03/23/24 06:43: WBC 5.5, RBC 3.01 L, Hgb 8.7 L, Hct 27.9 L, MCV 92.7, MCH 28.9, MCHC 31.2 L, RDW Std Deviation 44.3 H, RDW Coeff of Charley 13.2, Plt Count 150, MPV 9.7, Immature Gran % (Auto) 0.400, Neut % (Auto) 53.8, Lymph % (Auto) 31.2, [place] % (Auto) 10.9 H, Eos % (Auto) 2.4, Baso % (Auto) 1.3 H, Absolute Neuts (auto) 3.0, Absolute Lymphs (auto) 1.71, Nucleated RBC % 0, Sodium 142, Potassium 4.2, Chloride 114 H, Carbon Dioxide 26.0, Anion Gap 2 L, BUN 11, Creatinine 0.82, Estim Creat Clear Calc 57.20, Est GFR (MDRD) Af Amer 88, Est GFR (MDRD) Non-Af 72, BUN/Creatinine Ratio 13.4, Glucose 93, Calcium 7.8 L Physical Exam Narrative General: Alert, Oriented x3, Cooperative, No apparent distress HEENT: Atraumatic, PERRLA, EOMI, Normocephalic Oral: Moist Mucosa Neck: Supple, No JVD Lungs: Diminished, Normal air movement, No rhonchi, No wheeze, No rales Cardiovascular: Regular rate, Regular Rhythm, Normal S1, Normal S2, No murmurs Abdomen: Soft, Non Tender, Non-Distended, No Hepato-splenomegaly Extremities: No edema, Capillary Refill Less than 3 Seconds Skin: No rashes, No breakdown, incision CDI Musculoskeletal: Tenderness to palpation of right hip Neurological: No focal neurological deficits, Motor Exam 5/5 strength throughout, Sensory exam intact to light touch and pain Psych/Mental Status: Normal Affect, Appropriate Assessment & Plan Assessment/Plan (1) Right femoral fracture: QUALIFIERS: Encounter type: initial encounter Femur location: intertrochanteric Fracture type: closed Fracture alignment: displaced Qualified Code(s): S72.141A - Displaced intertrochanteric fracture of right femur, initial encounter for closed fracture PLAN: Plan 1. Right intertrochanteric fracture secondary to mechanical fall status post repair 03/21/2024 ? Continue with pain management ? PT/OT ?Awaiting placement at SNF 2. Tobacco abuse ? Stable ? Discussed cessation ? Continue with nicotine patch DVT: Lovenox Charges/Coding Visit Charges Inpatient E&M: 45698 Subs Hosp L2
--- NOTE | 2024-03-23 11:58 | CASEMGMT ---
Social Work BETH spoke with Kimmy in TCU. Although, initially TCU thought to have a bed today a bed is now not available. Per Kimmy, Inpatient Rehab at [facility] would be able to accept pt today. BETH met with pt and explained the differences between TCU and [facility] and that [facility] could accept pt. Pt is agreeable to go to [facility]. SW offered to bring pt a list of other IRF in the area as [facility] is not her only choice. Pt denies list stating that she prefers to stay at [facility] for post acute care. Pt states she will update family and denies SW calling. SW notified pt's physician. Plan: [facility] Inpatient Rehab, when medically ready [facility]
--- NOTE | 2024-03-23 12:48 | PN.ORTHO_ITS ---
Subjective Subjective Patient seen and examined. Denies any new complaints. Pain controlled. Denies fevers, chills, nausea vomiting, chest pain or shortness of breath. Objective Data Objective Data Vital Signs: Vital Signs Temp Pulse Resp BP Pulse Ox O2 Del Method O2 Flow Rate 97.7 F L 62 16 106/49 L 99 Room Air 2 03/23/24 09:09 03/23/24 09:09 03/23/24 09:09 03/23/24 09:09 03/23/24 09:09 03/23/24 09:09 03/21/24 18:27 Oxygen Flow Rate (L/min) 2 Oxygen Delivery Method Room Air Weight: 136 lb 14.513 oz Body Mass Index (BMI) 22.1 Intake & Output: Intake and Output for Last 24 Hours 03/21/24 03/22/24 03/23/24 23:59 23:59 23:59 Intake Total 2099.16 / 2099.16 1437.42 / 1437.42 1863.33 / 1863.33 Output Total 750 / 1075 1175 / 1175 Balance 1349.16 / 1024.16 262.42 / 262.42 1863.33 / 1863.33 Lab / Micro Data 03/23/24 06:43 03/23/24 06:43 Labs: Laboratory Results - last 24 hr 03/23/24 06:43: WBC 5.5, RBC 3.01 L, Hgb 8.7 L, Hct 27.9 L, MCV 92.7, MCH 28.9, MCHC 31.2 L, RDW Std Deviation 44.3 H, RDW Coeff of Charley 13.2, Plt Count 150, MPV 9.7, Immature Gran % (Auto) 0.400, Neut % (Auto) 53.8, Lymph % (Auto) 31.2, [place] % (Auto) 10.9 H, Eos % (Auto) 2.4, Baso % (Auto) 1.3 H, Absolute Neuts (auto) 3.0, Absolute Lymphs (auto) 1.71, Nucleated RBC % 0, Sodium 142, Potassium 4.2, Chloride 114 H, Carbon Dioxide 26.0, Anion Gap 2 L, BUN 11, Creatinine 0.82, Estim Creat Clear Calc 57.20, Est GFR (MDRD) Af Amer 88, Est GFR (MDRD) Non-Af 72, BUN/Creatinine Ratio 13.4, Glucose 93, Calcium 7.8 L Physical Exam Narrative General - A&Ox3, NAD. VSS/AF Right lower extremity -incisional dressing C/D/I. SILT Sural, Saphenous, SPN, DPN, Tibial N. distributions. DP, PT 2+. BCR. DF, PF, EHL 5/5. No calf TTP. Assessment & Plan Assessment/Plan (1) Right femoral fracture: QUALIFIERS: Encounter type: initial encounter Femur location: intertrochanteric Fracture type: closed Fracture alignment: displaced Qualified Code(s): S72.141A - Displaced intertrochanteric fracture of right femur, initial encounter for closed fracture PLAN: POD# 2 s/p right femur CMN -Patient stable. Plan to continue to mobilize with therapy. Stable for discharge from my standpoint once placement precertification is obtained. - Pain control - Medicine following for medical management - PT/OT -weightbearing as tolerated right lower extremity - DVT PPX -Multimodal with Lovenox, SCDs, MARGO sheehan, early mobilization - Case management - D/C planning I will sign off at this time. Please not hesitate to call if any questions or concerns arise. Patient may shower postoperative day #5 if no drainage. Okay to leave incisions open to air after postoperative day #5. Continue Lovenox x 28 days upon discharge. Follow-up in 2 weeks for staple removal and x-rays.
[2024-03-23 13:33] LABS: Hemoglobin 10.5 g/dL (12.0-15.0)
--- NOTE | 2024-03-23 13:50 | TREXTCAR_ITS ---
Diet Diet Order/Speech Therapy: 03/22/24 05:06 Diet: Regular - General Is pt able to select menu?: Yes Routine Orders/Code Status Routine Lab Work: CBC and BMP Wound(s) right hip: Wound Type: Surgical Incision Therapies Physical Therapy: Eval and Treat Occupational Therapy: Eval and Treat Problem/Diagnosis (1) Right femoral fracture: Status: Acute Code(s): S72.91XA - Unspecified fracture of right femur, initial encounter for closed fracture Comment: Patient may shower postoperative day #5 if no drainage. Okay to leave incisions open to air after postoperative day #5. Continue Lovenox x 28 days upon discharge. Follow-up in 2 weeks for staple removal and x-rays. Plan 1. Right intertrochanteric fracture secondary to mechanical fall status post repair 03/21/2024 ? Continue with pain management ? PT/OT ?Awaiting placement at SNF 2. Tobacco abuse ? Stable ? Discussed cessation ? Continue with nicotine patch DVT: Lovenox Allergies/Procedures Done in Hospital Allergies Tetracyclines Adverse Reaction (Verified 03/20/24 15:52) Nausea Procedures: None Type of Care/Length of Stay Estimated LOS: Convalescent Care Less Than 30 days Type of Care Needed: Skilled Rehab Potential: Good Prognosis: Good Additional Orders/Day of Discharge Day of Discharge: 03/23/24 Dietary and Speech Recommendations Dietitian Recommendations/Changes: Recommend advance diet as tolerated to regular. Trend weights as available. Offer ONS as needed once PO established with meals; will d/c ensure plus HP with medpass for now. Discharge Plan Admission Admit Date/Time: 03/20/24 18:32 Attending Provider: Tesfaye Barahona Primary Care Provider: Josias Knowles Consulting Providers: Joi Bowens; Tesfaye Alvarenga Discharge Orders/Prescriptions Prescriptions: New calcium carbonate 200 mg calcium (500 mg) Tablet,Chewable 500 mg PO TIDCM Qty: 0 0RF sennosides-docusate sodium [Stool Softener-Stimulant Laxat] 8.6-50 mg Tablet 2 tab PO BID Qty: 0 0RF oxycodone 5 mg Tablet 5 mg PO Q4H PRN PRN (Reason: Pain Score 4-10) 5 Days Qty: 0 0RF enoxaparin 40 mg/0.4 mL Syringe 40 mg subcut DAILY 28 Days Qty: 11.2 0RF Continued doxepin 50 mg capsule 50 mg PO QHS Referrals / Follow Up: Josias Knowles MD [Primary Care Provider] - Tesfaye Alvarenga DO [Med Staff - Active Staff] - Within 2 Weeks (staple removal) Disposition Disposition (needs filled in before D/C Order can be placed): Long Term Facility (1) Right femoral fracture Qualifiers: Encounter type: initial encounter Femur location: intertrochanteric Fracture type: closed Fracture alignment: displaced Qualified Code(s): S72.141A - Displaced intertrochanteric fracture of right femur, initial encounter for closed fracture
[2024-03-23 13:58] VITALS: BP 113/42; PULSE 83; RESP 16; TEMP 36.7; O2SAT 99
--- NOTE | 2024-03-23 13:58 | PCM.DC.SUM ---
Providers Date of Admission: 03/20/24 Primary Care Physician: Dr. Josias Knowles MD Consultations 03/20/24 19:28 Consult: Orthopedics Routine Consulting Provider: Tesfaye Alvarenga Reason for Consult: right hip fracture due to mechanical fall EMERGENT Consult: No MD Notified: Yes Date Notified: 03/20/24 Time Notified: 18:34 Method of Notification: Text Reason For Visit: RIGHT HIP FRACTURE DUE TO MECHANICAL FALL Diagnosis Discharge Diagnosis (1) Right femoral fracture: Status: Acute Code(s): S72.91XA - Unspecified fracture of right femur, initial encounter for closed fracture Qualifiers: Encounter type: initial encounter Femur location: intertrochanteric Fracture alignment: displaced Fracture type: closed Qualified Code(s): S72.141A - Displaced intertrochanteric fracture of right femur, initial encounter for closed fracture Medications at Discharge Home Medications doxepin 50 mg capsule 50 mg PO QHS 03/20/24 calcium carbonate 500 mg (2.5 x 200 mg calcium (500 mg)) PO TIDCM #0 tabs 03/23/24 enoxaparin 40 mg/0.4 mL subcutaneous syringe 40 mg (0.4 mL) subcut DAILY 28 days #11.2 mL 03/23/24 oxycodone 5 mg tablet 5 mg PO Q4H PRN PRN Pain Score 4-10 5 days #0 tabs 03/23/24 sennosides 8.6 mg-docusate sodium 50 mg tablet (Stool Softener-Stimulant Laxative) 2 tab PO BID #0 tabs 03/23/24 Hospital Course Operations - (Right intertrochanteric proximal femur fracture with intramedullary nail right femur) Procedures None Summary of Care Provided Minutes Spent on Discharge: 34 Hospital Course: Per HPI: HETAL SINGH, is a 73 F with a PMH as outlined who presents via the ED on 03/20/2024 with a complaitn of mechanical fall. She landed on her right side and subsequently had right wrist and hip pain. She said she stepped out to go and smoke a cigarette but then tripped over herself and fell, landing on her right side. She denied any lightheadedness or dizziness, palpitations or any frequent syncopal episodes. States that she just tripped. She has not had such falls in the past. Review of systems otherwise negative. Vitals in the ED were BP of 137/90, temp of 98.1F, [place] of 73 and BP of 137/90. RR was 15 and she was saturating at 99% on room air. CBC was significant for wbc of 12.7 but was otherwise WNL. CHemistry was unremarkable. CXR per my read showed no acute cardiopulmonary process. Right femoral xray per my read showed evidence of a right intertrochanteric fracture; official read showed an acute displaced angulated intertrochanteric fracture of the right hip. EKG showed no acute ST changes. She is being admitted to be managed for debility and right hip pain due to mechanical fall. Hospital Course: 1. Right intertrochanteric fracture secondary to mechanical fall status post intramedullary nail 03/21/2024?73-year-old female presented to the hospital after mechanical fall landing on her right side leading to a right intertrochanteric fracture. She had this repaired on 03/21/2024 and did well postoperatively. She did have some anemia postoperatively, it is unclear whether or not there is was post surgical bleed or if this was due to dilution, she did drop from 14 down to 8.7 however on recheck on the day of discharge she was up to 10.5 after her fluid had been discontinued. I discussed with her the plan for discharge to rehab today, she expressed understanding of the risk benefits of going to rehab and would like to go today. I do recommend monitoring her CBC in the rehab unit just to evaluate for stability. She will need to be on Lovenox for the next 28 days per orthopedic surgery's recommendation, she can shower in 5 days and she will need to have her jeri removed in 2 weeks. Physical Exam Narrative General: Alert, Oriented x3, Cooperative, No apparent distress HEENT: Atraumatic, PERRLA, EOMI, Normocephalic Oral: Moist Mucosa Neck: Supple, No JVD Lungs: Diminished, Normal air movement, No rhonchi, No wheeze, No rales Cardiovascular: Regular rate, Regular Rhythm, Normal S1, Normal S2, No murmurs Abdomen: Soft, Non Tender, Non-Distended, No Hepato-splenomegaly Extremities: No edema, Capillary Refill Less than 3 Seconds Skin: No rashes, No breakdown, incision CDI Musculoskeletal: Tenderness to palpation of right hip Neurological: No focal neurological deficits, Motor Exam 5/5 strength throughout, Sensory exam intact to light touch and pain Psych/Mental Status: Normal Affect, Appropriate Weight / BMI Weight Weight: 136 lb 14.513 oz Body Mass Index (BMI) 22.1 ABG / Lab / Microbiology Data 03/23/24 13:25 03/23/24 06:43 Laboratory: Laboratory Results - last 24 hr 03/23/24 06:43: WBC 5.5, RBC 3.01 L, Hgb 8.7 L, Hct 27.9 L, MCV 92.7, MCH 28.9, MCHC 31.2 L, RDW Std Deviation 44.3 H, RDW Coeff of Charley 13.2, Plt Count 150, MPV 9.7, Immature Gran % (Auto) 0.400, Neut % (Auto) 53.8, Lymph % (Auto) 31.2, [place] % (Auto) 10.9 H, Eos % (Auto) 2.4, Baso % (Auto) 1.3 H, Absolute Neuts (auto) 3.0, Absolute Lymphs (auto) 1.71, Nucleated RBC % 0, Sodium 142, Potassium 4.2, Chloride 114 H, Carbon Dioxide 26.0, Anion Gap 2 L, BUN 11, Creatinine 0.82, Estim Creat Clear Calc 57.20, Est GFR (MDRD) Af Amer 88, Est GFR (MDRD) Non-Af 72, BUN/Creatinine Ratio 13.4, Glucose 93, Calcium 7.8 L 03/23/24 13:25: Hgb 10.5 L Meaningful Use Info Meaningful Use Meaningful Use Diagnoses (Choose all that apply): None applicable Ischemic Stroke Statin Dosing Therapy Reference: STATIN DOSE THERAPY REFERENCE: * Patients > 75 years receive moderate or high dose statin therapy. * Patients 75 years or YOUNGER should receive HIGH intensity statin dose unless contraindicated. You will be required to document reason for non-treatment if statin daily dose does not meet guidelines. HIGH DOSE STATIN THERAPY DAILY Atorvastatin > than or = to 40 mg Rosuvastatin > than or = to 20 mg Amlodipine + Atorvastatin > than or = to 2.5/40 mg Ezetimibe + Simvastatin 10/80 mg Simvastatin 80mg Discharge Plan Admission Admit Date/Time: 03/20/24 18:32 Attending Provider: Tesfaye Barahona Primary Care Provider: Josias Knowles Consulting Providers: Joi Bowens; Tesfaye Alvarenga Discharge Orders/Prescriptions Prescriptions: New calcium carbonate 200 mg calcium (500 mg) Tablet,Chewable 500 mg PO TIDCM Qty: 0 0RF sennosides-docusate sodium [Stool Softener-Stimulant Laxat] 8.6-50 mg Tablet 2 tab PO BID Qty: 0 0RF oxycodone 5 mg Tablet 5 mg PO Q4H PRN PRN (Reason: Pain Score 4-10) 5 Days Qty: 0 0RF enoxaparin 40 mg/0.4 mL Syringe 40 mg subcut DAILY 28 Days Qty: 11.2 0RF Continued doxepin 50 mg capsule 50 mg PO QHS Referrals / Follow Up: Josias Knowles MD [Primary Care Provider] - Tesfaye Alvarenga DO [Med Staff - Active Staff] - Within 2 Weeks (staple removal) Disposition Disposition (needs filled in before D/C Order can be placed): [facility] Charges/Coding Visit Charges Inpatient E&M: 25909 Disch Hosp >30min
--- NOTE | 2024-03-23 14:25 | CASEMGMT ---
Social Work- SW advised Kimmy that pt is ready and transfer summary is in, pt is ready to d/c. SW advised nurse and pt. JUD Del Angel
--- NOTE | 2024-03-23 14:43 | PHA.DC.MR.R ---
Pharmacy [facility] Med Reconciliation Pharmacy Service has performed discharge medication reconciliation for this patient. The patient's discharge medication list was reviewed for discrepancies and discrepancies were resolved. Medications at Discharge Home Medications doxepin 50 mg capsule 50 mg PO QHS 03/20/24 calcium carbonate 500 mg (2.5 x 200 mg calcium (500 mg)) PO TIDCM #0 tabs 03/23/24 enoxaparin 40 mg/0.4 mL subcutaneous syringe 40 mg (0.4 mL) subcut DAILY 28 days #11.2 mL 03/23/24 oxycodone 5 mg tablet 5 mg PO Q4H PRN PRN Pain Score 4-10 5 days #0 tabs 03/23/24 sennosides 8.6 mg-docusate sodium 50 mg tablet (Stool Softener-Stimulant Laxative) 2 tab PO BID #0 tabs 24
== END 2024-03-23 17:29 | DRG 481 ==
LOC: ED 17:08 → MS3 18:30
PROVIDERS: Student in an Organized Health Care Education/Training Program; Admitting Provider Student in an Organized Health Care Education/Training Program; Emergency Provider Emergency Medicine; PCP Family Medicine; Visit Provider Family Medicine
PROC: 0QS636Z Reposition Right Upper Femur with Intramedullary Internal Fixation Device, Percutaneous Approach (ICD-10-PCS; CPT 27245; principal; 2024-03-21 14:30)
DX: S72.141A Displaced intertrochanteric fracture of right femur, initial encounter for closed fracture (principal); Z68.1 Body mass index [BMI] 19.9 or less, adult; E44.1 Mild protein-calorie malnutrition; J44.9 Chronic obstructive pulmonary disease, unspecified; I73.9 Peripheral vascular disease, unspecified; F32.A Depression, unspecified; F17.210 Nicotine dependence, cigarettes, uncomplicated; F41.9 Anxiety disorder, unspecified; W18.09XA Striking against other object with subsequent fall, initial encounter; Z79.01 Long term (current) use of anticoagulants; Z79.899 Other long term (current) drug therapy
CPT/HCPCS: 36415; 71045; 72170; 73070; 73502; 73552; 76000; 80048; 82306; 85018; 85025; 85027; 86850; 86900; 86901; 93005; 97110; 97116; 97162; 97166; 97802; 99285; 99406; C1776; J7030; J7040; J7050; A4216; J2405

== ENCOUNTER 2024-03-23 17:42 | Inpatient (IN) | payer MEDICARE, OTHER, SELFPAY ==
[2024-03-23 17:47] VITALS: BP 146/54; PULSE 77; RESP 16; TEMP 37.2; O2SAT 99; BMI 23.6
[2024-03-23] MEDS: Magnesium Hydroxide 30 ML UDC PO (18:55)
[2024-03-23 22:00] VITALS: BP 115/64; PULSE 75; RESP 16; TEMP 36.6; O2SAT 96
[2024-03-23] MEDS: DOXEPIN HCL 50 MG CAPSULE PO (22:06)
[2024-03-23] MEDS: Senna/Docusate Sodium 1 Tablet 2 TABLET PO (22:06)
[2024-03-23] MEDS: oxyCODONE 5 MG Tablet PO (22:06)
[2024-03-24] MEDS: oxyCODONE 5 MG Tablet PO ×4 (05:58→22:16)
[2024-03-24] MEDS: Bisacodyl 10 MG Suppository RC (05:58)
[2024-03-24 07:43] VITALS: BP 101/51; PULSE 73; RESP 18; TEMP 36.2; O2SAT 100
[2024-03-24] MEDS: Ensure Plus High Protein 120 ML LIQUID PO ×3 (08:49→16:09)
[2024-03-24] MEDS: Calcium Carbonate 500 MG Tablet PO ×3 (08:49→16:09)
[2024-03-24] MEDS: Enoxaparin 40 MG/0.4 ML Syringe SC (08:49)
[2024-03-24] MEDS: Senna/Docusate Sodium 1 Tablet 2 TABLET PO ×2 (08:50→22:14)
[2024-03-24 09:04] LABS: Hematocrit 29.2 % (37-47); Hemoglobin 9.4 g/dL (12.0-15.0); Mean Corp Hgb Conc 32.2 g/dL (32-36); Mean Corpuscular Hgb 29.5 pg (27.0-32.0); Mean Corpuscular Volume 91.5 fL (81-99); Mean Platelet Vol. 9.1 fl (6.2-12.0); Platelet Count 167 K/mm3 (150-450); RBC Distribution Width CV 13.2 % (11.6-14.6); RBC Distribution Width SD 43.6 fl (35.1-43.9); Red Blood Count 3.19 M/mm3 (4.2-5.4)
[2024-03-24 09:24] LABS: ALB/GLOB Ratio 0.8 RATIO (0.9-2.4); AST(SGOT) 27 U/L (15-37); Alanine Aminotransfer ALT/SGPT 8 U/L (13-56); Albumin, Serum 2.5 g/dL (3.2-5.0); Alkaline Phosphatase 54 U/L (45-117); Anion Gap 2 (5-15); BUN 8 mg/dL (7-18); BUN/Creat Ratio 11.2 RATIO (10-20); Calcium,Total 8.3 mg/dL (8.5-10.1); Chloride 107 mmol/L (98-107); Creatinine, Serum 0.72 mg/dL (0.55-1.02); EST Glomerular Filtration Rate 85 mL/min (>60); Est Glom Filt Rate - Afr Amer 103 mL/min (>60); Estimated Creatinine Clearance 58.63 ml/min; Globulin 3.1 g/dL (2.2-4.2); Glucose 89 mg/dL (74-106); Magnesium 1.9 mg/dL (1.6-2.6); Phosphorus 2.5 mg/dL (2.5-4.9); Potassium 4.1 mmol/L (3.5-5.1); Protein, Total 5.6 g/dL (6.4-8.2); Sodium Level 139 mmol/L (136-145)
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
[2024-03-24 12:43] LABS: T4 Free Direct 1.21 ng/dL (0.76-1.46); Thyroid Stim Hormone (TSH) 6.35 uIU/mL (0.358-3.74)
--- NOTE | 2024-03-24 12:56 | PCM.RU.PYE ---
Admission Information Primary Diagnosis:: Physical debility resulting from a fall causing a right hip fracture. Status Changes from Prescreening?: No changes Identified Actual Problem List:: Skin Intergrity, Pain, ALteration in Cmfrt, Depression, Bladder Incontinence, Bowel, Constipation, Mobility Impaired, Alteration/ Air Exchange and Alteration-Leisure Activ. Potential Problem List:: DVT, Bleeding, Infection, UTI, Aspiration, Falls, Skin Integrity and Depression Risk of Complications DVT: MARGO Hose and - (Aspirin 81 mg twice daily for 28 more days) Bleeding: Monitor Lab Values, Nursing to Teach Precautions for anti-coagulation therapy., Wound, if applicable, to be assessed every shift. and Stroke patients assessed for lethargy or change in status. Infection: Clinical Staff to Monitor for S/S of infection: and S/S of infection include fever, redness, warmth, etc. Urinary Tract Infection: Monitor for frequency, burning, discomfort, or incontinence. and Nursing will obtain urine sample for urinalysis and C&S when ordered. Aspiration: Clinical staff will monitor for coughing, drooling, congestion., Speech will evaluate swallowing and dsyphasia. and Nursing will monitor patient swallowing during meals. Falls: Patient will be evaluated for Fall Precautions and Patient will be placed on Fall Precautions as indicated per protocol. Skin Breakdown: Nursing will assess skin daily using assessment tool. and Nursing will place on Skin Breakdown Precautions as indicated. Pain: Clinical staff will assess patient's pain level per protocol., Medications will be given, if needed, and the pain level reassessed. and Other methods: Massage, distraction, decrease stimulus, etc. used PRN. Plan of Care Patient requires physician specializing in physical medicine and rehab oversight to provide close medical supervision of rehab issues including: Pain Management, Sleep Problems, Bowel and Bladder, Medical and co-morbidity Management, DVT prophylaxis, Rehabilitation Leadership and Coordination of treatment team Patient needs Physical Therapy: For a minimum of 1 hour and At least 5 out of 7 days Patient needs Physical Therapy to improve:: Mobility, Strengthening, Transfers, Stretching, ROM, Endurance, Stairs, Gait and Balance Patient needs Occupational Therapy: For a minimum of 1 hour and At least 5 out of 7 days Patient needs Occupational Therapy to improve ADL's incl.: Eating, Grooming, Bathing, Dressing, Toileting, Toilet transfers, Community Reintegration, Higher functioning activities, Household tasks, Adaptive Equipment, Splinting and Other activities as determined Patient requires 24/7 Rehabilitation Nursing for: Pain Issues, Identifying and preventing risk factors, Monitoring and reporting current medical conditions, Assisting with ambulation, transfer, and all ADL's, Teaching patients about disease process and medications, Family teaching, Providing safe environment, Bowel and Bladder Issues, Skin integrity and Medication Management Patient needs Medical Transcriber/ Case Management for: Discharge Planning, Arranging Home Equipment or Services and Family Interventions Patient needs Dietary and Nutrition Services for: Adequate Nutrition, Nutritional Supplements and Nutritional Education Goals Goals Patient will remain: free from falls Patient will perform eating at: MOD I level of assist. Patient will perform bed mobility at: MOD I level of assist. Patient will complete transfers from bed to chair at: MOD I level of assist. Patient will ambulate: - (250 feet with a wheeled walker at mod I on various surfaces) Patient will complete upper body dressing at: MOD I level of assist. Patient will complete lower body dressing at: MOD I level of assist. (With adaptive equipment as needed for increased independence with self-care.) Patient will complete toilet transfer at: MOD I level of assist. Patient will complete toileting at: MOD I level of assist. Patient will perform bathing at: MOD I level of assist. Patient will perform Tub/Shower transfer at: - (Supervision level for 1 to 2 weeks post discharge from acute rehab.) Patient will complete grooming at: MOD I level of assist. Patient will achieve: - (5 Steps with 2 handrails at standby assist to allow access to her home entrance.) Patient will have pain level of: of 3 or less Patient's skin will: remain intact Patient will receive: adequate nutrition. Discharge Planning Estimated Length of stay (days): 21 Anticipated D/C Destination: Home with Home Health Was Preadmission Assessment Accurate?: Yes
[2024-03-24] MEDS: Acetaminophen 500 MG Tablet 1000 MG PO ×2 (14:30→22:14)
[2024-03-24] MEDS: Naproxen 375 MG Tablet PO (16:09)
[2024-03-24 22:00] VITALS: BP 126/59; PULSE 78; RESP 20; TEMP 36.8; O2SAT 95
[2024-03-24] MEDS: Mirtazapine 15 MG Tablet PO (22:15)
[2024-03-24] MEDS: Doxepin Hcl 25 MG Capsule PO (22:15)
[2024-03-24] MEDS: Aspirin 81 MG TAB.CHEW PO (22:15)
[2024-03-25] MEDS: Acetaminophen 500 MG Tablet 1000 MG PO ×3 (06:25→21:42)
[2024-03-25] MEDS: Ensure Plus High Protein 120 ML LIQUID PO ×3 (07:56→17:42)
[2024-03-25] MEDS: Aspirin 81 MG TAB.CHEW PO ×2 (07:56→21:42)
[2024-03-25] MEDS: Calcium Carbonate 500 MG Tablet PO ×2 (07:57→17:42)
[2024-03-25] MEDS: Naproxen 375 MG Tablet PO ×2 (07:57→17:42)
[2024-03-25] MEDS: Cholecalciferol (VIT D3) 25 MCG TABLET (1,000 UNITS) PO (07:58)
[2024-03-25] MEDS: Senna/Docusate Sodium 1 Tablet 2 TABLET PO ×2 (07:58→21:42)
[2024-03-25 09:46] VITALS: BP 133/55; PULSE 67; RESP 18; TEMP 36.8; O2SAT 97
[2024-03-25] MEDS: oxyCODONE 5 MG Tablet PO ×2 (09:51→20:23)
[2024-03-25 19:22] VITALS: BP 107/51; PULSE 72; RESP 18; TEMP 36.5; O2SAT 99
[2024-03-25] MEDS: Mirtazapine 15 MG Tablet PO (21:42)
[2024-03-25] MEDS: Doxepin Hcl 25 MG Capsule PO (21:42)
[2024-03-25 22:00] VITALS: PULSE 72; RESP 16
[2024-03-26] MEDS: Acetaminophen 500 MG Tablet 1000 MG PO ×3 (05:53→21:04)
[2024-03-26 08:00] VITALS: BP 101/56; PULSE 62; RESP 16; TEMP 37; O2SAT 94
[2024-03-26] MEDS: Ensure Plus High Protein 120 ML LIQUID PO ×3 (08:18→16:54)
[2024-03-26] MEDS: Calcium Carbonate 500 MG Tablet PO ×2 (08:18→16:54)
[2024-03-26] MEDS: Aspirin 81 MG TAB.CHEW PO ×2 (08:18→21:04)
[2024-03-26] MEDS: Naproxen 375 MG Tablet PO ×2 (08:18→16:54)
[2024-03-26] MEDS: oxyCODONE 5 MG Tablet PO ×3 (08:18→21:04)
[2024-03-26] MEDS: Cholecalciferol (VIT D3) 25 MCG TABLET (1,000 UNITS) PO (08:19)
[2024-03-26] MEDS: Senna/Docusate Sodium 1 Tablet 2 TABLET PO (21:04)
[2024-03-26] MEDS: Mirtazapine 15 MG Tablet PO (21:04)
[2024-03-26] MEDS: Doxepin Hcl 25 MG Capsule PO (21:04)
[2024-03-26 21:12] VITALS: BP 131/56; PULSE 66; RESP 16; TEMP 37.1; O2SAT 95
[2024-03-26 22:00] VITALS: PULSE 66; RESP 18
[2024-03-27] MEDS: Acetaminophen 500 MG Tablet 1000 MG PO ×3 (05:23→21:28)
[2024-03-27] MEDS: oxyCODONE 5 MG Tablet PO ×4 (05:27→21:30)
[2024-03-27] MEDS: Naproxen 375 MG Tablet PO ×2 (08:57→16:40)
[2024-03-27] MEDS: Calcium Carbonate 500 MG Tablet PO ×2 (08:57→16:41)
[2024-03-27] MEDS: Ensure Plus High Protein 120 ML LIQUID PO ×3 (08:57→16:42)
[2024-03-27] MEDS: Aspirin 81 MG TAB.CHEW PO ×2 (08:57→21:28)
[2024-03-27] MEDS: Cholecalciferol (VIT D3) 25 MCG TABLET (1,000 UNITS) PO (08:57)
[2024-03-27] MEDS: Senna/Docusate Sodium 1 Tablet 2 TABLET PO ×2 (08:58→21:27)
[2024-03-27 09:37] VITALS: BP 106/50; PULSE 63; RESP 16; TEMP 36.7; O2SAT 93
[2024-03-27 10:00] VITALS: PULSE 64; O2SAT 97
[2024-03-27] MEDS: Magnesium Hydroxide 30 ML UDC PO (10:12)
--- NOTE | 2024-03-27 10:26 | PN_ITS ---
Subjective Subjective Afebrile VSS - Maintaining appropriate oxygen saturation on RA Oral intake - FOOD good FLUIDS good Discussed with nursing - no problems that need addressed Reviewed the THERAPY notes Medication list reviewed. She is c/o a lot of hip pain today. Increases with weight bearing. She took 3 doses of Oxycodone 5 mg yesterday and has had 2 doses today so far. She is also on scheduled Tylenol 1,000 mg Q8H, Naproxen and a lidocaine patch. Antithyroid antibodies are still pending. Objective Data Objective Data Vital Signs: Vital Signs Temp Pulse Resp BP Pulse Ox O2 Del Method 98.1 F 63 16 106/50 L 93 Room Air 03/27/24 09:37 03/27/24 09:37 03/27/24 09:37 03/27/24 09:37 03/27/24 09:37 03/27/24 09:37 Oxygen Delivery Method Room Air Weight: 147 lb 4 oz Body Mass Index (BMI) 23.6 Intake & Output: Intake and Output for Last 24 Hours 03/25/24 03/26/24 03/27/24 23:59 23:59 23:59 Intake Total 1060 / 1060 1530 / 1530 250 / 250 Output Total 1430 / 1430 1350 / 1350 250 / 250 Balance -370 / -370 180 / 180 0 / 0 Lab / Micro Data 04/03/24 05:06 04/03/24 05:06 Physical Exam Const alert, oriented x3 and no apparent distress Constitutional Narrative: Pale. Flat affect. Decreased facial expression. General Appearance: cooperative Resp Resp Narrative: Few crackles in the bases initially that cleared after a few deep breaths. No cough with deep breathing. Breath sounds are mildly diminished. Cardio regular rate, regular rhythm and no gallops GI normal to inspection, nondistended, normoactive bowel sounds, soft to palpation and non-tender Extremity no calf tenderness General Extremity: Negative for edema Skin Rashes: no rashes Assessment & Plan Assessment/Plan (1) Physical debility: (2) Right femoral fracture: QUALIFIERS: Encounter type: initial encounter Femur location: i ntertrochanteric Fracture type: closed Fracture alignment: displaced Q ualified Code(s): S72.141A - Displaced intertrochanteric fracture of right femur, initial encounter for closed fracture (3) History of open reduction and internal fixation (ORIF) procedure: (4) Depression: QUALIFIERS: Depression Type: unspecified Qualified Code(s): F32.9 - Major depressive disorder, single episode, unspecified (5) Anxiety disorder: QUALIFIERS: Anxiety disorder type: unspecified anxiety disorder Q ualified Code(s): F41.9 - Anxiety disorder, unspecified (6) Acute blood loss anemia: PLAN: Plan 1. Continue therapy 2. Continue Remeron-she did sleep somewhat better last night. 3. Bleeding Sinequan off prior to discharge. 4. Highly recommend psychotherapy following discharge. She has benefited from this in the past. Charges/Coding Visit Charges Inpatient E&M: 45744 Subs Hosp L1
--- NOTE | 2024-03-27 13:18 | CASEMGMT ---
Social Work - Admission Assessment Met with patient in room, introducing to self and social work role. Patient fully engaged in conversation, thought tearful throughout assessment. Patient reports frustration current physical/functioal status post hip fracture and surgery. Throughout assessment, patient also endorsed current symptoms of depression. PHQ9 completed with a score of 21/27, falling into the severe range of depression. No thoughts, plans, intent, or history of past attempts surrounding suicide. Refer to PHQ9 intervention for further details of depression screening. Spoke with Dr. Alvares regarding depression scoring and concern for level of depression present. Also spoke with patient's nurse Januaryque regarding concerns for depression in this patient. Initial assessment completed. [facility] . Patient hopes to return home with skilled HHC. Educated to Medicare benefit for skilled HHC. Handoff to [employer] INSPECTOR Viktoria Scherer. Plan: 1 . Anticipate return home, possible HHC. 2. Watch for need for walker RX at discharge (daughter checking on whether patient actually has one at home) 3. intermission coordinator care consultation referral to the [facility] at time of discharge. SW to follow and assist as needed for discharge planning and emotional support. -SOCORRO Barahona
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
--- NOTE | 2024-03-27 14:35 | CASEMGMT ---
Team meeting held today with pt present. PT/OT/ST updated pt on progress with therapy and nursing. SW updated pt that Medicare has approved stay and pt will continue to receive therapy. SW will remain available for emotional support. Pt plans to return home with her daughter at time of discharge. Will reTeam next week. JUD Hudson
--- NOTE | 2024-03-27 16:30 | PCM.PROGNOTE ---
Subjective Subjective 80 was seen on team rounds today. There was no family present in the room or available by phone to participate. Afebrile VSS - Maintaining appropriate oxygen saturation on RA Oral intake - FOOD good but, then refused lunch today........;had 75-100% of breakfast. FLUIDS variable/fair Discussed with nursing - She is c/o a of of pain today. she is having a hard day. Has made significant progress since admission to rehab but, not wanting to participate as much today. She seems very depressed. She was seen by the SW today and she scored very high on the PHQ. She told the SW she has thought it may be better if she was not around.........she told me the same thing last Wednesday but, she has never attempted to harm herself and is not actively suicidal. Has no thoughts about how she would do this. She is very unhappy with her situation at home. Dtr lives with her and her dtr is a hoarder which upsets Erica. She frequently has to escape to her bedroom to get away from the clutter. Her dtr has never gotten counselling for hoarding. Erica told the SW that her dtr is not keeping up with her share of bills. I think her perception of pain is significantly impacted by severe depression. Erica is unable to set boundaries with her dtr. Her dtr told her that she wants to hang on to everything because when she was younger her mom had divorces and she had to give up her things when divorce happened. Erica may feel guilty. I suggested they would both benefit from psychotherapy and maybe family therapy would be appropriate. Erica is willing to meet with myself, the SW and her dtr to generate a plan for tx going forward so that Erica can feel comfortable in her home. Reviewed the THERAPY notes -making progress despite saying that she is in a lot of pain. Medication list reviewed. Denies cephalgia, lightheadedness, chest pain, shortness of breath, cough, nausea/vomiting/abdominal pain, dysuria and calf tenderness. She tells me she is sleeping better at night and feels rested in the morning. She denies having any hangover effect from taking Remeron and Sinequan at bedtime. Toward the end of the week if she is tolerating the Remeron will consider discontinuing Sinequan and increasing Remeron to 30 mg nightly. Objective Data Objective Data Vital Signs: Vital Signs Temp Pulse Resp BP Pulse Ox O2 Del Method 98.1 F 64 16 106/50 L 97 Room Air 03/27/24 09:37 03/27/24 10:00 03/27/24 09:37 03/27/24 09:37 03/27/24 10:00 03/27/24 10:00 Oxygen Delivery Method Room Air Weight: 147 lb 4 oz Body Mass Index (BMI) 23.6 Intake & Output: Intake and Output for Last 24 Hours 03/25/24 03/26/24 03/27/24 23:59 23:59 23:59 Intake Total 1060 / 1060 1530 / 1530 370 / 370 Output Total 1430 / 1430 1350 / 1350 250 / 250 Balance -370 / -370 180 / 180 120 / 120 Lab / Micro Data 03/24/24 08:48 03/24/24 08:48 Physical Exam Const alert and oriented x3 Resp normal respiratory effort, no retractions, no use of accessory muscles and clear to auscultation bilaterally Resp Narrative: Mildly diminished throughout Effort and Inspection: able to speak in complete sentences Cardio regular rate, regular rhythm, no murmurs, no rub and no gallops GI normal to inspection, nondistended, normoactive bowel sounds, soft to palpation and non-tender Extremity no calf tenderness Extremity Narrative: Pedal pulses are somewhat diminished. Arterial studies in 2020 showed no significant peripheral vascular disease in the LE's Psych mental status grossly normal, thought process normal, cooperative, speech normal, denies hallucinations, denies homicidal ideation and denies suicidal ideation Psych Narrative: Depressed affect, decreased facial expression today. Seems more hopeless. Denies suicidal ideation. Appearance: grossly normal Attitude: calm Activity / Motor Behavior: appropriate eye contact Mood & Affect: depressed, anxious and other Feeling hopeless at times and sometimes thinks she would be better off but, she has never attempted suicide and she has no plan for how she would kill herself. Assessment & Plan Assessment/Plan (1) Physical debility: (2) Fall: QUALIFIERS: Encounter type: subsequent encounter Qualified Code(s): W19.XXXD - Unspecified fall, subsequent encounter PLAN: Ground level (3) Right femoral fracture: QUALIFIERS: Encounter type: initial encounter Femur location: intertrochanteric Fracture type: closed Fracture alignment: displaced Qualified Code(s): S72.141A - Displaced intertrochanteric fracture of right femur, initial encounter for closed fracture (4) History of open reduction and internal fixation (ORIF) procedure: (5) Acute blood loss anemia: (6) Tobacco dependence: PLAN: nicotine patch placed (7) Vitamin D deficiency: (8) Depression: QUALIFIERS: Depression Type: unspecified Qualified Code(s): F32.9 - Major depressive disorder, single episode, unspecified (9) Anxiety disorder: QUALIFIERS: Anxiety disorder type: unspecified anxiety disorder Qualified Code(s): F41.9 - Anxiety disorder, unspecified (10) COPD (chronic obstructive pulmonary disease): QUALIFIERS: COPD type: unspecified COPD Qualified Code(s): J44.9 - Chronic obstructive pulmonary disease, unspecified (11) Insomnia: QUALIFIERS: Insomnia type: unspecified Qualified Code(s): G47.00 - Insomnia, unspecified PLAN: Plan 1. Continue therapy 2. Continue Remeron 15 mg at at bedtime and the lower dose of Sinequan 25 mg at at bedtime. 3. She has no suicidal ideation although she feels that sometimes she think she would be better off if she was not around. I think she can be safe on rehab without a sitter. 4. Will discuss with the social insurance administrator scheduling a family meeting with ED and her daughter to discuss barriers to returning home and come up with a plan so they can both get therapy. Hopefully her dtr will be willing. Charges/Coding Visit Charges Inpatient E&M: 96037 Subs Hosp L2
[2024-03-27 18:07] LABS: Thyroglobulin Antibody < 1.0 IU/mL (0.0-0.9); Thyroid Peroxidase AB < 9 IU/mL (0-34)
[2024-03-27 19:55] VITALS: BP 125/52; PULSE 71; RESP 17; TEMP 37.2; O2SAT 99
[2024-03-27] MEDS: Mirtazapine 15 MG Tablet PO (21:28)
[2024-03-27] MEDS: Doxepin Hcl 25 MG Capsule PO (21:28)
[2024-03-28] MEDS: Bisacodyl 10 MG Suppository RC (05:27)
[2024-03-28] MEDS: Acetaminophen 500 MG Tablet 1000 MG PO ×3 (05:29→20:32)
[2024-03-28] MEDS: oxyCODONE 5 MG Tablet PO ×3 (05:37→20:31)
[2024-03-28] MEDS: Ensure Plus High Protein 120 ML LIQUID PO ×3 (08:36→16:37)
[2024-03-28] MEDS: Senna/Docusate Sodium 1 Tablet 2 TABLET PO ×2 (08:36→20:32)
[2024-03-28] MEDS: Calcium Carbonate 500 MG Tablet PO ×2 (08:37→16:38)
[2024-03-28] MEDS: Aspirin 81 MG TAB.CHEW PO ×2 (08:37→20:33)
[2024-03-28] MEDS: Cholecalciferol (VIT D3) 25 MCG TABLET (1,000 UNITS) PO (08:37)
[2024-03-28] MEDS: Naproxen 375 MG Tablet PO ×2 (08:37→16:37)
[2024-03-28 08:42] VITALS: BP 133/48; PULSE 74; RESP 16; TEMP 36.2; O2SAT 97
--- NOTE | 2024-03-28 11:14 | PN_ITS ---
Subjective Subjective Afebrile VSS - Maintaining appropriate oxygen saturation on RA Oral intake - FOOD fair to good. She ate 75 to 100% of her last 2 meals. FLUIDS variable Discussed with nursing - no problems that need addressed Reviewed the THERAPY notes Medication list reviewed. Antithyroid antibodies are negative. TSH is mildly elevated but the T4 is within normal limits and this is likely secondary to euthyroid sick...... no treatment needed at this time. Feeling less down and hopeless today. Slept well last night. Appetite good today. Nirav lightheadedness, chest pain, shortness of breath, cough, nausea/vomiting/epigastric pain, dysuria and calf tenderness. She does have pain in her pelvis and low back and also in the hip. Denies any night sweats or shaking chills. Objective Data Objective Data Vital Signs: Vital Signs Temp Pulse Resp BP Pulse Ox O2 Del Method 97.1 F L 74 16 133/48 H 97 Room Air 03/28/24 08:42 03/28/24 08:42 03/28/24 08:42 03/28/24 08:42 03/28/24 08:42 03/28/24 08:42 Oxygen Delivery Method Room Air Weight: 147 lb 4 oz Body Mass Index (BMI) 23.6 Intake & Output: Intake and Output for Last 24 Hours 03/26/24 03/27/24 03/28/24 23:59 23:59 23:59 Intake Total 1530 / 1530 610 / 810 300 / 300 Output Total 1350 / 1350 250 / 450 600 / 600 Balance 180 / 180 360 / 360 -300 / -300 Lab / Micro Data 03/24/24 08:48 03/24/24 08:48 Labs: Laboratory Results - last 24 hr 03/25/24 07:00: Thyroglobulin Antibody < 1.0, Thyroid Peroxidase Ab < 9 Physical Exam Const alert and no apparent distress Constitutional Narrative: She is pale. General Appearance: cooperative HEENT moist oral mucous membranes HEENT Narrative: Palpebral conjunctiva is pale Resp clear to auscultation bilaterally Cardio regular rate, regular rhythm and no gallops GI normal to inspection, nondistended, normoactive bowel sounds, soft to palpation and non-tender Extremity no calf tenderness Extremity Narrative: Some edema of the right knee and right ankle. Skin General Skin Exam: no breakdown Rashes: no rashes Wound Narrative: Incisions are intact with no dehiscence, no favian-incisional erythema and no discharge. Psych Mood & Affect: flat affect Assessment & Plan Assessment/Plan (1) Physical debility: (2) Fall: QUALIFIERS: Encounter type: subsequent encounter Qualified Code(s): W19.XXXD - Unspecified fall, subsequent encounter (3) Right femoral fracture: QUALIFIERS: Encounter type: initial encounter Femur location: i ntertrochanteric Fracture type: closed Fracture alignment: displaced Q ualified Code(s): S72.141A - Displaced intertrochanteric fracture of right femur, initial encounter for closed fracture (4) History of open reduction and internal fixation (ORIF) procedure: (5) Acute blood loss anemia: (6) Tobacco dependence: (7) Vitamin D deficiency: (8) Depression: QUALIFIERS: Depression Type: unspecified Qualified Code(s): F32.9 - Major depressive disorder, single episode, unspecified (9) Anxiety disorder: QUALIFIERS: Anxiety disorder type: unspecified anxiety disorder Q ualified Code(s): F41.9 - Anxiety disorder, unspecified (10) COPD (chronic obstructive pulmonary disease): QUALIFIERS: COPD type: unspecified COPD Qualified Code(s): J44.9 - Chronic obstructive pulmonary disease, unspecified (11) Insomnia: QUALIFIERS: Insomnia type: unspecified Qualified Code(s): G47.00 - Insomnia, unspecified PLAN: Plan 1. Continue therapy 2. Recheck a BMP and CBC in a few days 3. Continue Remeron. She is tolerating well and sleeping well at night. If she continues to tolerate will increase the Remeron to 30 mg nightly later this week. Charges/Coding Visit Charges Inpatient E&M: 66716 Subs Hosp L1
[2024-03-28 20:00] VITALS: BP 113/51; PULSE 73; RESP 17; TEMP 36.6; O2SAT 98
[2024-03-28] MEDS: Doxepin Hcl 25 MG Capsule PO (20:33)
[2024-03-28] MEDS: Mirtazapine 15 MG Tablet PO (20:33)
[2024-03-29] MEDS: Acetaminophen 500 MG Tablet 1000 MG PO ×3 (04:44→21:46)
[2024-03-29] MEDS: oxyCODONE 5 MG Tablet PO ×2 (04:44→21:43)
[2024-03-29 07:25] VITALS: BP 117/53; PULSE 66; RESP 17; TEMP 36.3; O2SAT 99
[2024-03-29] MEDS: Naproxen 375 MG Tablet PO ×2 (07:59→16:52)
[2024-03-29] MEDS: Cholecalciferol (VIT D3) 25 MCG TABLET (1,000 UNITS) PO (08:00)
[2024-03-29] MEDS: Aspirin 81 MG TAB.CHEW PO ×2 (08:00→21:45)
[2024-03-29] MEDS: Senna/Docusate Sodium 1 Tablet 2 TABLET PO ×2 (08:00→21:44)
[2024-03-29] MEDS: Calcium Carbonate 500 MG Tablet PO ×2 (08:00→16:52)
[2024-03-29] MEDS: Ensure Plus High Protein 120 ML LIQUID PO ×3 (08:04→16:52)
[2024-03-29 20:00] VITALS: BP 117/55; PULSE 87; RESP 17; TEMP 36.8; O2SAT 96
[2024-03-29] MEDS: Mirtazapine 15 MG Tablet PO (21:45)
[2024-03-29] MEDS: Doxepin Hcl 25 MG Capsule PO (21:46)
[2024-03-30] MEDS: Acetaminophen 500 MG Tablet 1000 MG PO ×3 (05:40→21:07)
[2024-03-30 08:14] VITALS: BP 107/60; PULSE 64; RESP 16; TEMP 36.6; O2SAT 96
[2024-03-30] MEDS: Cholecalciferol (VIT D3) 25 MCG TABLET (1,000 UNITS) PO (08:18)
[2024-03-30] MEDS: Senna/Docusate Sodium 1 Tablet 2 TABLET PO ×2 (08:18→21:06)
[2024-03-30] MEDS: Naproxen 375 MG Tablet PO ×2 (08:18→16:51)
[2024-03-30] MEDS: Aspirin 81 MG TAB.CHEW PO ×2 (08:19→21:06)
[2024-03-30] MEDS: Calcium Carbonate 500 MG Tablet PO ×2 (08:19→16:52)
[2024-03-30] MEDS: oxyCODONE 5 MG Tablet PO ×2 (08:22→19:53)
[2024-03-30] MEDS: Ensure Plus High Protein 120 ML LIQUID PO ×2 (08:22→12:00)
--- NOTE | 2024-03-30 09:16 | NURSING ---
spoke with Leticia at Dr Alvarenga office. new order to remove jeri 04/04. F/U in office on dc
--- NOTE | 2024-03-30 11:32 | PN_ITS ---
Subjective Subjective Afebrile VSS -blood pressure is well-controlled is within normal limits. Maintaining appropriate oxygen saturation on RA Oral intake - FOOD good FLUIDS improving Discussed with nursing - no problems that need addressed Reviewed the THERAPY notes Medication list reviewed. Taking oxycodone usually 2 times a day. Erica denies cephalgia, lightheadedness, shortness of breath, cough, chest pain, nausea/vomiting/abdominal pain, diarrhea/constipation, dysuria and calf tenderness. Objective Data Objective Data Vital Signs: Vital Signs Temp Pulse Resp BP Pulse Ox O2 Del Method 97.9 F 64 16 107/60 96 Room Air 03/30/24 08:14 03/30/24 08:14 03/30/24 08:14 03/30/24 08:14 03/30/24 08:14 03/30/24 08:14 Oxygen Delivery Method Room Air Weight: 147 lb 4 oz Body Mass Index (BMI) 23.6 Intake & Output: Intake and Output for Last 24 Hours 03/28/24 03/29/24 03/30/24 23:59 23:59 23:59 Intake Total 900 / 900 1910 / 1910 340 / 340 Output Total 1100 / 1100 950 / 950 400 / 400 Balance -200 / -200 960 / 960 -60 / -60 Lab / Micro Data 03/24/24 08:48 03/24/24 08:48 Physical Exam Const alert and oriented x3 HEENT HEENT Narrative: pale. Resp normal respiratory effort and clear to auscultation bilaterally Resp Narrative: No cough with deep breathing. Better air exchange in the bases today. Effort and Inspection: able to speak in complete sentences Cardio regular rate, regular rhythm, no murmurs, no rub and no gallops Cardio Narrative: No ectopy. GI normal to inspection, nondistended, normoactive bowel sounds, soft to palpation and non-tender Extremity no calf tenderness Skin General Skin Exam: no breakdown Rashes: no rashes Psych cooperative Psych Narrative: She tells me that she is looking forward to going home. she has a more positive attitude today than she did on Wednesday. tolerating the Remeron with no adverse side effects. She is sleeping well at night. Appearance: appropriate Assessment & Plan Assessment/Plan (1) Physical debility: (2) Fall: QUALIFIERS: Encounter type: subsequent encounter Qualified Code(s): W19.XXXD - Unspecified fall, subsequent encounter (3) Right femoral fracture: QUALIFIERS: Encounter type: initial encounter Femur location: i ntertrochanteric Fracture type: closed Fracture alignment: displaced Q ualified Code(s): S72.141A - Displaced intertrochanteric fracture of right femur, initial encounter for closed fracture (4) History of open reduction and internal fixation (ORIF) procedure: (5) Acute blood loss anemia: (6) Tobacco dependence: (7) Vitamin D deficiency: (8) Depression: QUALIFIERS: Depression Type: unspecified Qualified Code(s): F32.9 - Major depressive disorder, single episode, unspecified (9) Anxiety disorder: QUALIFIERS: Anxiety disorder type: unspecified anxiety disorder Q ualified Code(s): F41.9 - Anxiety disorder, unspecified (10) COPD (chronic obstructive pulmonary disease): QUALIFIERS: COPD type: unspecified COPD Qualified Code(s): J44.9 - Chronic obstructive pulmonary disease, unspecified (11) Insomnia: QUALIFIERS: Insomnia type: unspecified Qualified Code(s): G47.00 - Insomnia, unspecified PLAN: Plan 1. Continue therapy 2. No adverse reactions to mirtazapine. Sleeping well at night and has good appetite. Seems to be in a better frame of mind. Will increase Remeron to 30 mg nightly and decrease Sinequan to 12.5 mg at HS. Would like to DC Sinequan going forward 3. Recheck lab Wednesday 4. Needs a DEXA post DC. 5. Needs a CT chest as OP to follow the pulmonary nodule 6. Needs a MMG - last one was in 2019 7. Recheck a vitamin D in 1 month - she was started on a supplement Charges/Coding Visit Charges Inpatient E&M: 19544 Subs Hosp L1
--- NOTE | 2024-03-30 15:24 | CHAPLAIN ---
Type of Pastoral Visit _x__ Initial Visit ___ Follow-up Visit ___ On-call Visit ___ General Patient Visit ___ Spiritual Assessment ___ Family Conference ___ Bereavement ___ Rapid Response ___ Code Blue ___ Other (describe below) Pastoral Care Referral From _x__ Patient ___ Family ___ Nurse ___ Physician ___ Reliability Engineer ___ Integration Director ___ Other (describe below) Sacrament/Intervention _x__ Active listening ___ Anointing ___ Pentecostalism ___ Bereavement ___ Communion ___ Josi exploration ___ _x__ Life review _x__ Prayer ___ Reconciliation ___ Sacrament of Sick _x__ Supportive presence ___ Wedding ___ Other (describe below) Pastoral Comments 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
[2024-03-30 19:19] VITALS: BP 131/63; PULSE 75; RESP 16; TEMP 36.8; O2SAT 98
[2024-03-30 19:47] LABS: Hemoglobin 9.8 g/dL (12.0-15.0)
[2024-03-30 20:05] VITALS: PULSE 75; RESP 16; O2SAT 98
[2024-03-30] MEDS: Mirtazapine 30 MG Tablet PO (21:06)
[2024-03-30] MEDS: Doxepin Hydrochloride 10 MG Capsule PO (21:07)
[2024-03-31] MEDS: Acetaminophen 500 MG Tablet 1000 MG PO ×3 (05:10→21:46)
[2024-03-31] MEDS: oxyCODONE 5 MG Tablet PO ×3 (05:10→20:30)
[2024-03-31 07:26] VITALS: BP 126/66; PULSE 69; RESP 16; TEMP 36.5; O2SAT 97
[2024-03-31 07:30] VITALS: BMI 23.0
[2024-03-31] MEDS: Naproxen 375 MG Tablet PO ×2 (07:57→17:27)
[2024-03-31] MEDS: Cholecalciferol (VIT D3) 25 MCG TABLET (1,000 UNITS) PO (07:57)
[2024-03-31] MEDS: Aspirin 81 MG TAB.CHEW PO ×2 (07:57→21:46)
[2024-03-31] MEDS: Senna/Docusate Sodium 1 Tablet 2 TABLET PO ×2 (07:57→21:46)
[2024-03-31] MEDS: Calcium Carbonate 500 MG Tablet PO ×2 (07:57→17:27)
[2024-03-31] MEDS: Magnesium Hydroxide 30 ML UDC PO (17:29)
[2024-03-31 20:32] VITALS: BP 107/62; PULSE 72; RESP 16; TEMP 37.1; O2SAT 96
[2024-03-31 21:00] VITALS: PULSE 72; RESP 16; O2SAT 96
[2024-03-31] MEDS: Doxepin Hydrochloride 10 MG Capsule PO (21:46)
[2024-03-31] MEDS: Mirtazapine 30 MG Tablet PO (21:46)
[2024-04-01] MEDS: Acetaminophen 500 MG Tablet 1000 MG PO ×3 (06:43→21:42)
[2024-04-01] MEDS: oxyCODONE 5 MG Tablet PO ×2 (06:46→21:47)
[2024-04-01] MEDS: Senna/Docusate Sodium 1 Tablet 2 TABLET PO ×2 (09:00→21:42)
[2024-04-01] MEDS: Aspirin 81 MG TAB.CHEW PO ×2 (09:00→21:43)
[2024-04-01] MEDS: Naproxen 375 MG Tablet PO ×2 (09:00→17:00)
[2024-04-01] MEDS: Cholecalciferol (VIT D3) 25 MCG TABLET (1,000 UNITS) PO (09:00)
[2024-04-01] MEDS: Ensure Plus High Protein 120 ML LIQUID PO ×2 (09:01→17:00)
[2024-04-01] MEDS: Calcium Carbonate 500 MG Tablet PO ×2 (09:01→17:00)
[2024-04-01 09:19] VITALS: BP 116/66; PULSE 63; RESP 16; TEMP 36.5; O2SAT 95
[2024-04-01 21:25] VITALS: BP 111/62; PULSE 72; RESP 16; TEMP 37.1; O2SAT 96
[2024-04-01] MEDS: Mirtazapine 30 MG Tablet PO (21:42)
[2024-04-01] MEDS: Doxepin Hydrochloride 10 MG Capsule PO (21:42)
[2024-04-02] MEDS: Acetaminophen 500 MG Tablet 1000 MG PO ×3 (06:33→21:44)
[2024-04-02 08:19] VITALS: BP 130/62; PULSE 63; RESP 18; TEMP 36.3; O2SAT 95
[2024-04-02] MEDS: Naproxen 375 MG Tablet PO ×2 (08:26→17:25)
[2024-04-02] MEDS: Ensure Plus High Protein 120 ML LIQUID PO ×3 (08:26→17:24)
[2024-04-02] MEDS: Senna/Docusate Sodium 1 Tablet 2 TABLET PO ×2 (08:27→21:44)
[2024-04-02] MEDS: Aspirin 81 MG TAB.CHEW PO ×2 (08:27→21:45)
[2024-04-02] MEDS: Cholecalciferol (VIT D3) 25 MCG TABLET (1,000 UNITS) PO (08:27)
[2024-04-02] MEDS: Calcium Carbonate 500 MG Tablet PO ×2 (08:27→17:25)
[2024-04-02 19:39] VITALS: BP 112/84; PULSE 74; RESP 16; TEMP 37.1; O2SAT 95
[2024-04-02] MEDS: oxyCODONE 5 MG Tablet PO (21:44)
[2024-04-02] MEDS: Mirtazapine 30 MG Tablet PO (21:45)
[2024-04-02] MEDS: Doxepin Hydrochloride 10 MG Capsule PO (21:45)
[2024-04-03] MEDS: Acetaminophen 500 MG Tablet 1000 MG PO ×3 (04:46→22:36)
[2024-04-03 05:58] LABS: Hematocrit 33.4 % (37-47); Hemoglobin 10.3 g/dL (12.0-15.0); Mean Corp Hgb Conc 30.8 g/dL (32-36); Mean Corpuscular Hgb 29.1 pg (27.0-32.0); Mean Corpuscular Volume 94.4 fL (81-99); Mean Platelet Vol. 9.1 fl (6.2-12.0); Platelet Count 231 K/mm3 (150-450); RBC Distribution Width CV 15.7 % (11.6-14.6); Red Blood Count 3.54 M/mm3 (4.2-5.4); White Blood Count 5.9 K/mm3 (4.4-11.0)
[2024-04-03 06:47] LABS: Anion Gap 6 (5-15); BUN 20 mg/dL (7-18); BUN/Creat Ratio 30.6 RATIO (10-20); Calcium,Total 8.8 mg/dL (8.5-10.1); Chloride 108 mmol/L (98-107); Creatinine, Serum 0.65 mg/dL (0.55-1.02); EST Glomerular Filtration Rate 94 mL/min (>60); Est Glom Filt Rate - Afr Amer 114 mL/min (>60); Estimated Creatinine Clearance 58.63 ml/min; Glucose 91 mg/dL (74-106); Potassium 3.9 mmol/L (3.5-5.1); Sodium Level 140 mmol/L (136-145)
[2024-04-03 07:35] VITALS: BP 130/71; PULSE 87; RESP 17; TEMP 36.5; O2SAT 97
[2024-04-03] MEDS: Aspirin 81 MG TAB.CHEW PO ×2 (07:42→22:35)
[2024-04-03] MEDS: Cholecalciferol (VIT D3) 25 MCG TABLET (1,000 UNITS) PO (07:43)
[2024-04-03] MEDS: Ensure Plus High Protein 120 ML LIQUID PO ×2 (07:43→12:01)
[2024-04-03] MEDS: Senna/Docusate Sodium 1 Tablet 2 TABLET PO ×2 (07:43→22:36)
[2024-04-03] MEDS: Calcium Carbonate 500 MG Tablet PO ×2 (07:43→17:11)
[2024-04-03] MEDS: Naproxen 375 MG Tablet PO ×2 (07:43→17:11)
--- NOTE | 2024-04-03 12:15 | PN_ITS ---
Subjective Subjective Erica was seen on TEAM rounds today. No family was available to participate by phone. Afebrile VSS - Maintaining appropriate oxygen saturation on RA Oral intake - FOOD fair to good FLUIDS poor Discussed with nursing - no problems that need addressed. Slept well last night after scheduled meds given...... Remeron 30 mg and Sinequan 10 mg nightly. intermittently depressed and tearful. Reviewed the THERAPY notes Medication list reviewed. Took only 1 oxycodone 5 mg yesterday. She is also on scheduled Tylenol 1000 mg every 8 and naproxen 375 twice daily for pain control. All lab drawn this morning was personally reviewed. The white blood cell count is normal at 5.9. Hemoglobin is 10.3, up from 9.8 on the . Platelets are within normal limits. Sodium is 140 and the potassium is 3.9. The BUN is 20 with a creatinine of 0.65 which is stable. Tells me that she is sleeping better at night. She denies CP, SOB, palpitations, N/V/abd pain, dysuria and calf tenderness. Knows that she should increase her fluid intake. Not tearful today. Denies lightheadedness. Objective Data Objective Data Vital Signs: Vital Signs Temp Pulse Resp BP Pulse Ox O2 Del Method 97.7 F L 87 17 130/71 H 97 Room Air 04/03/24 07:35 04/03/24 07:35 04/03/24 07:35 04/03/24 07:35 04/03/24 07:35 04/03/24 07:35 Oxygen Delivery Method Room Air Weight: 143 lb 1.28 oz Body Mass Index (BMI) 23.0 Intake & Output: Intake and Output for Last 24 Hours 04/01/24 04/02/24 04/03/24 23:59 23:59 23:59 Intake Total 940 / 940 960 / 1110 630 / 630 Output Total 900 / 900 900 / 1100 550 / 550 Balance 40 / 40 60 / 10 80 / 80 Lab / Micro Data 04/03/24 05:06 04/03/24 05:06 Labs: Laboratory Results - last 24 hr 04/03/24 05:06: WBC 5.9, RBC 3.54 L, Hgb 10.3 L, Hct 33.4 L, MCV 94.4, MCH 29.1, MCHC 30.8 L, RDW Std Deviation 54.0 H, RDW Coeff of Charley 15.7 H, Plt Count 231, MPV 9.1, Sodium 140, Potassium 3.9, Chloride 108 H, Carbon Dioxide 26.0, Anion Gap 6, BUN 20 H, Creatinine 0.65, Estim Creat Clear Calc 58.63, Est GFR (MDRD) Af Amer 114, Est GFR (MDRD) Non-Af 94, BUN/Creatinine Ratio 30.6 H, Glucose 91, Calcium 8.8 Physical Exam Const alert, oriented x3 and no apparent distress Constitutional Narrative: pale HEENT HEENT Narrative: pale. Mouth: dry mucous membranes Resp normal respiratory effort and clear to auscultation bilaterally Resp Narrative: No cough with deep breathing. Better air exchange in the bases today. Effort and Inspection: able to speak in complete sentences Cardio regular rate, regular rhythm, no murmurs, no rub and no gallops Cardio Narrative: No ectopy. GI normal to inspection, nondistended, normoactive bowel sounds, soft to palpation and non-tender Extremity no calf tenderness Skin General Skin Exam: no breakdown Rashes: no rashes Assessment & Plan Assessment/Plan (1) Physical debility: (2) Fall: QUALIFIERS: Encounter type: subsequent encounter Qualified Code(s): W19.XXXD - Unspecified fall, subsequent encounter (3) Right femoral fracture: QUALIFIERS: Encounter type: initial encounter Femur location: i ntertrochanteric Fracture type: closed Fracture alignment: displaced Q ualified Code(s): S72.141A - Displaced intertrochanteric fracture of right femur, initial encounter for closed fracture (4) History of open reduction and internal fixation (ORIF) procedure: (5) Acute blood loss anemia: (6) Tobacco dependence: (7) Depression: QUALIFIERS: Depression Type: unspecified Qualified Code(s): F32.9 - Major depressive disorder, single episode, unspecified PLAN: Plan 1. Continue therapy 2. Making good progress with PT/OT. Plan discharge on Wednesday to home with home health care. Her daughter will be picking her up and transporting her home. 3. Continue to recommended psycho therapy at [facility] to learn to set boundaries with her dtr and to treat depression.. She was given a list of local therapy resources by the . Charges/Coding Visit Charges Inpatient E&M: 64709 Subs Hosp L2
[2024-04-03] MEDS: oxyCODONE 5 MG Tablet PO ×2 (12:38→19:46)
--- NOTE | 2024-04-03 13:23 | CASEMGMT ---
Social Work IDT met with patient at bedside to complete Teams Meeting. Discussed patient progress with therapy. Patient has been improving with therapy. Patient has hip kit and improving with mobility. PT goal to continue to work on therapy on steps. SW discuss discharge plans with patient. Patient anticipates discharge on 04/08/2024 to home with home health. Patient requested information for mental health support. SW provided patient with mental health resources and home health care provider list with preference of geographic location, medical needs, and insurance network. SW discussed home health supports. 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 SW require patient choice for home health care provider. SW will continue to monitor to support discharge plans. RAMESH Peck
[2024-04-03 19:42] VITALS: BP 114/64; PULSE 67; RESP 16; TEMP 36.6; O2SAT 98
[2024-04-03] MEDS: Mirtazapine 30 MG Tablet PO (22:35)
[2024-04-03] MEDS: Doxepin Hydrochloride 10 MG Capsule PO (22:36)
[2024-04-04] MEDS: Acetaminophen 500 MG Tablet 1000 MG PO ×3 (06:36→21:00)
[2024-04-04 07:34] VITALS: BP 118/66; PULSE 61; RESP 15; TEMP 36.6; O2SAT 98
[2024-04-04] MEDS: Cholecalciferol (VIT D3) 25 MCG TABLET (1,000 UNITS) PO (07:40)
[2024-04-04] MEDS: Aspirin 81 MG TAB.CHEW PO ×2 (07:40→21:00)
[2024-04-04] MEDS: Senna/Docusate Sodium 1 Tablet 2 TABLET PO ×2 (07:40→21:00)
[2024-04-04] MEDS: Calcium Carbonate 500 MG Tablet PO ×2 (07:40→16:59)
[2024-04-04] MEDS: Naproxen 375 MG Tablet PO ×2 (07:40→16:59)
[2024-04-04 19:34] VITALS: BP 118/54; PULSE 67; RESP 16; TEMP 36.3; O2SAT 96
[2024-04-04] MEDS: Mirtazapine 30 MG Tablet PO (21:00)
[2024-04-04] MEDS: Doxepin Hydrochloride 10 MG Capsule PO (21:00)
[2024-04-05] MEDS: Acetaminophen 500 MG Tablet 1000 MG PO ×3 (07:03→20:48)
[2024-04-05 07:28] VITALS: BP 118/72; PULSE 66; RESP 17; TEMP 36.4; O2SAT 96
[2024-04-05] MEDS: Naproxen 375 MG Tablet PO ×2 (08:05→16:50)
[2024-04-05] MEDS: Senna/Docusate Sodium 1 Tablet 2 TABLET PO ×2 (08:05→20:50)
[2024-04-05] MEDS: Aspirin 81 MG TAB.CHEW PO ×2 (08:06→20:49)
[2024-04-05] MEDS: Calcium Carbonate 500 MG Tablet PO ×2 (08:06→16:51)
[2024-04-05] MEDS: Cholecalciferol (VIT D3) 25 MCG TABLET (1,000 UNITS) PO (08:06)
--- NOTE | 2024-04-05 08:45 | CASEMGMT ---
Addendum entered by Neida Interiano 04/05/24 16:37: SW followed up with patient at bedside to obtain home health care provider choice. Patient provided careport list with [facility] as choice. SW discussed home health care services provided by [facility]. Patient requested for PT/OT/SN. Patient informed SW that she would like resources for transportation. SW provided patient with transportation resources. SW informed patient that she will need to arrange PCP appointment arranged ahead of time to notify transportation. Patient informed SW that daughter will be providing transportation at discharge on 04/08 1553-BETH contacted [facility] Intake admission, Laly to notify of home health care request. Laly reviewed referral 1608- BETH received a call from [facility] Intake Admission, Laly who informed BETH that the patient has been accepted for home health care services. Patient will need PCP arranged prior to discharge for home health care services to initiate. Original Note: Social Work SW met with patient at bedside to determine choice for home health care services. Patient informed BETH that she has not been able to review home health care provider list provided. Patient requested for SW to return at a later time. RAMESH Peck
[2024-04-05] MEDS: Ensure Plus High Protein 120 ML LIQUID PO ×2 (12:36→16:50)
[2024-04-05] MEDS: oxyCODONE 5 MG Tablet PO ×2 (12:37→20:52)
[2024-04-05 19:30] VITALS: BP 119/55; PULSE 67; RESP 17; TEMP 36.8; O2SAT 98
[2024-04-05] MEDS: Mirtazapine 30 MG Tablet PO (20:49)
[2024-04-05] MEDS: Doxepin Hydrochloride 10 MG Capsule PO (20:49)
[2024-04-06] MEDS: Acetaminophen 500 MG Tablet 1000 MG PO ×3 (06:06→21:43)
[2024-04-06 08:07] VITALS: BP 118/42; PULSE 62; RESP 18; TEMP 36.4; O2SAT 95
[2024-04-06] MEDS: Cholecalciferol (VIT D3) 25 MCG TABLET (1,000 UNITS) PO (08:41)
[2024-04-06] MEDS: Naproxen 375 MG Tablet PO ×2 (08:41→18:02)
[2024-04-06] MEDS: Aspirin 81 MG TAB.CHEW PO ×2 (08:41→21:44)
[2024-04-06] MEDS: Calcium Carbonate 500 MG Tablet PO ×2 (08:42→18:02)
[2024-04-06] MEDS: Senna/Docusate Sodium 1 Tablet 2 TABLET PO ×2 (08:42→21:43)
[2024-04-06] MEDS: Ensure Plus High Protein 120 ML LIQUID PO ×3 (08:43→18:03)
--- NOTE | 2024-04-06 12:24 | PN_ITS ---
Subjective Subjective Afebrile VSS - Maintaining appropriate oxygen saturation on RA Oral intake - FOOD good FLUIDS good Discussed with nursing - no problems that need addressed. She is sleeping well at night. Pain is well-controlled. Taking oxycodone 1-2 times daily Reviewed the THERAPY notes Medication list reviewed. Denies lightheadedness, chest pain, cough, shortness of breath at rest, nausea/vomiting/abdominal pain, dysuria and calf tenderness. Objective Data Objective Data Vital Signs: Vital Signs Temp Pulse Resp BP Pulse Ox O2 Del Method 97.6 F L 62 18 118/42 L 95 Room Air 04/06/24 08:07 04/06/24 08:07 04/06/24 08:07 04/06/24 08:07 04/06/24 08:07 04/06/24 08:07 Oxygen Delivery Method Room Air Weight: 143 lb 1.28 oz Body Mass Index (BMI) 23.0 Intake & Output: Intake and Output for Last 24 Hours 04/04/24 04/05/24 04/06/24 23:59 23:59 23:59 Intake Total 1200 / 1200 1120 / 1120 1800 / 1800 Output Total 2100 / 2100 1350 / 1350 900 / 900 Balance -900 / -900 -230 / -230 900 / 900 Lab / Micro Data 04/03/24 05:06 04/03/24 05:06 Physical Exam Const alert, oriented x3 and no apparent distress Constitutional Narrative: Smiling and making good eye contact when we talk. More facial expression than at admission. General Appearance: cooperative Orientation / Consciousness: Negative for confused Resp clear to auscultation bilaterally Resp Narrative: Able to speak in complete sentences with no conversational dyspnea. Effort and Inspection: Negative for tachypneic Cardio regular rate, regular rhythm and no gallops GI normal to inspection, nondistended, normoactive bowel sounds, soft to palpation and non-tender GI Narrative: Having regular bowel movements. Extremity no calf tenderness General Extremity: Negative for edema Skin Wound Narrative: Incisions are intact with no favian-incisional erythema and no discharge. Psych Psych Narrative: Affect is much better than it was at admission. She is laughing with staff making good eye contact. She is not sleeping during the day nearly as much. She is sleeping well at night and she is no longer tearful. Assessment & Plan Assessment/Plan (1) Physical debility: (2) Right femoral fracture: QUALIFIERS: Encounter type: initial encounter Femur location: i ntertrochanteric Fracture type: closed Fracture alignment: displaced Q ualified Code(s): S72.141A - Displaced intertrochanteric fracture of right femur, initial encounter for closed fracture (3) History of open reduction and internal fixation (ORIF) procedure: (4) Depression: QUALIFIERS: Depression Type: unspecified Qualified Code(s): F32.9 - Major depressive disorder, single episode, unspecified (5) Anxiety disorder: QUALIFIERS: Anxiety disorder type: unspecified anxiety disorder Q ualified Code(s): F41.9 - Anxiety disorder, unspecified (6) Acute blood loss anemia: PLAN: Hemoglobin is stable PLAN: Plan 1. Continue therapy 2. Plan discharge home on 04/08/2024 with home health care. Daughter will transport. Charges/Coding Visit Charges Inpatient E&M: 16678 Subs Hosp L1
--- NOTE | 2024-04-06 18:41 | CASEMGMT ---
Social Work SW met with patient to review discharge plans. [facility] for PT/OT/SN SOC- Wednesday 04/11 Patient was provided Important Message from Medicare Letter and [employer] appeal information. SW reviewed patient's Medicare Rights. Patient provided verbal understanding of Medicare Rights and signature for letter. SW left patient at copy of IMM and placed copy in chart. RAMESH Peck
[2024-04-06 19:42] VITALS: BP 126/57; PULSE 66; RESP 12; TEMP 36.9; O2SAT 97
[2024-04-06] MEDS: Mirtazapine 30 MG Tablet PO (21:43)
[2024-04-06] MEDS: oxyCODONE 5 MG Tablet PO (21:43)
[2024-04-06] MEDS: Doxepin Hydrochloride 10 MG Capsule PO (21:44)
[2024-04-07] MEDS: Acetaminophen 500 MG Tablet 1000 MG PO ×3 (05:30→21:32)
[2024-04-07 07:00] VITALS: BMI 22.2
[2024-04-07 07:42] VITALS: BP 123/54; PULSE 61; RESP 16; TEMP 36.4; O2SAT 94
[2024-04-07] MEDS: Naproxen 375 MG Tablet PO ×2 (08:17→16:13)
[2024-04-07] MEDS: Calcium Carbonate 500 MG Tablet PO ×2 (08:17→16:13)
[2024-04-07] MEDS: Aspirin 81 MG TAB.CHEW PO ×2 (09:34→21:32)
[2024-04-07] MEDS: Cholecalciferol (VIT D3) 25 MCG TABLET (1,000 UNITS) PO (09:34)
[2024-04-07] MEDS: Senna/Docusate Sodium 1 Tablet 2 TABLET PO ×2 (09:38→21:32)
[2024-04-07] MEDS: Ensure Plus High Protein 120 ML LIQUID PO ×2 (11:54→16:13)
--- NOTE | 2024-04-07 17:33 | PCM.DC ---
Discharge Instructions Diet Discharge Diet: No restrictions Activity Discharge Activity: May Not Drive, May Shower and Use Walker Weight Bearing Status: Full weight bearing Keep extremity elevated above heart level: Right Leg Dressing / Incision Call your doctor if your incision/area has: Continuous Slow Oozing, Sudden Increased Bleeding, Increased Pain/ Swelling, Increased Redness and Foul Smelling Discharge Call your doctor if you observe: Fever of 101 or Higher, Inability to have a bowel movement, Shortness of breath, Dizziness, Swelling in the ankles, Chest pain, Increased palpitations (irregular heartbeat), Calf discomfort and Uncontrolled pain Suture Line Care: Avoid Pulling/Pushing and Avoid Pinching/Bending Cleanse incision/area with: Soap & Water and - (No dressing is needed but, if you would like can cover with a dry dressing ) Follow Up Care When: Follow up with Dr. Knowles and Dr. Alvarenga Test Results: Test results from this visit will be discussed in further detail at your follow-up appointment, if applicable. Pending Tests Upon Discharge: none Discharge Plan Admission Admit Date/Time: 03/23/24 17:42 Primary Reason for Your Visit: Debility secondary to hip fracture Attending Provider: Awa Alvares Primary Care Provider: Josias Knowles Instructions Patient Instructions: Counseling for Depression, Smoking Get Help to Quit, Caring for Your Incision, Kicking the Smoking Habit, ED Depression Additional Instructions / Restrictions: 1. When you came to rehab you were not eating or sleeping well. You had been taking Sinequan for quite some time with no improvement. We started you on Remeron and at the time of discharge your are sleeping much better and your appetite has improved. Antidepressants help with depression but, for people who have long standing depression counselling and an antidepressant together work better than either modality alone. You are not in a good situation at home. You are not happy with the clutter in the house and often retreat to your bedroom and this isolates you. Isolation makes depression worse. I suspect your daughter is also anxious and depressed. I think you 2 need to talk about what is bothering you and learn to set some boundaries. A good counsellor can help you with this. You deserve to be happy. 2. It is darn near impossible to quit ANY addiction when you are depressed. You should stop smoking. You have had a nodule in your lung in the past. I do not see that you have had a CT chest in the past couple years. You should ask Dr. Knowles to gi9ve you a requisition to have a CT chest. Lung cancer can start as a nodule. The CT scan tells us if the nodule is getting larger........if so it needs to be biopsied. 3. I do not think you have had a mammogram since 2019. You are overdue and should also ask for a requisition for a mammogram. Cancer is always more easily treated when it is found early. 1 in every 8 women will get breast cancer sometime in their lifetime. 4. I would also ask Dr. Knowles for a requisition for a bone density study. Smoking increases the risk for osteoporosis. If you have osteoporosis it needs to be treated to avoid additional fractures in the future. Vitamin D is necessary for your body to absorb calcium from the gastrointestinal tract. Vitamin D comes from the sun and we do not always see a lot of the sun in [place]. You have been started on a vitamin D supplement and you should take this once daily to help promote good bone health. 5. You have done very well in therapy and worked hard. We all enjoyed having you around and it was nice to see you make such good progress. Stay active and do the exercises given to you by the therapist at least once a day. Regular exercise helps prevent osteoporosis. If you or your family have any questions after you leave rehab please do not hesitate to call me. Office: [phone] Nurses station on rehab: [phone] Discharge Orders/Prescriptions Prescriptions: New acetaminophen 500 mg Tablet 1,000 mg PO Q8 PRN (Reason: pain) Qty: 1 0RF aspirin 81 mg Tablet,Chewable 81 mg PO BID Qty: 7 0RF Rx Instructions: This is to help prevent blood clots after hip surgery. you can stop on Wednesday of next week calcium carbonate 200 mg calcium (500 mg) Tablet,Chewable 500 mg PO BIDCM Qty: 60 0RF Rx Instructions: Calcium is better absorbed if taken with a meal calcitriol 0.25 mcg capsule 0.25 mcg PO DAILY Qty: 30 0RF naproxen 375 mg Tablet 375 mg PO BIDCM Qty: 60 0RF nicotine 14 mg/24 hr Patch 24 Hour 14 mg transdermal DAILY Qty: 14 0RF mirtazapine 30 mg Tablet 30 mg PO QHS Qty: 30 0RF sennosides-docusate sodium [Stool Softener-Stimulant Laxat] 8.6-50 mg Tablet 2 tab PO BID Qty: 120 0RF oxycodone 5 mg Tablet 5 mg PO Q6H PRN (Reason: pain 4 or >) 7 Days Qty: 14 0RF Discontinued doxepin 50 mg capsule 50 mg PO QHS calcium carbonate 200 mg calcium (500 mg) Tablet,Chewable 500 mg PO TIDCM Qty: 0 0RF sennosides-docusate sodium [Stool Softener-Stimulant Laxat] 8.6-50 mg Tablet 2 tab PO BID Qty: 0 0RF oxycodone 5 mg Tablet 5 mg PO Q4H PRN PRN (Reason: Pain Score 4-10) 5 Days Qty: 0 0RF No Action enoxaparin 40 mg/0.4 mL Syringe 40 mg subcut DAILY 28 Days Qty: 11.2 0RF Referrals / Follow Up: Josias Knowles MD [Primary Care Provider] - 04/11/24 9:40 am Tesfaye Alvarenga DO [Med Staff - Active Staff] - 04/21/24 2:00 pm (appt with Dae Banks) Disposition Disposition (needs filled in before D/C Order can be placed): Home Health Service
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
[2024-04-07 21:28] VITALS: BP 134/58; PULSE 77; RESP 18; TEMP 36.6; O2SAT 99
[2024-04-07] MEDS: oxyCODONE 5 MG Tablet PO (21:32)
[2024-04-07] MEDS: Doxepin Hydrochloride 10 MG Capsule PO (21:32)
[2024-04-07] MEDS: Mirtazapine 30 MG Tablet PO (21:32)
[2024-04-08] MEDS: Acetaminophen 500 MG Tablet 1000 MG PO (05:39)
[2024-04-08] MEDS: Naproxen 375 MG Tablet PO (08:26)
[2024-04-08] MEDS: Cholecalciferol (VIT D3) 25 MCG TABLET (1,000 UNITS) PO (08:26)
[2024-04-08] MEDS: Senna/Docusate Sodium 1 Tablet 2 TABLET PO (08:26)
[2024-04-08] MEDS: Ensure Plus High Protein 120 ML LIQUID PO (08:26)
[2024-04-08] MEDS: Calcium Carbonate 500 MG Tablet PO (08:27)
[2024-04-08] MEDS: Aspirin 81 MG TAB.CHEW PO (08:27)
[2024-04-08 10:00] VITALS: BP 126/72; PULSE 70; RESP 17; TEMP 36.7; O2SAT 98
[2024-04-08] MEDS: oxyCODONE 5 MG Tablet PO (10:21)
--- NOTE | 2024-04-08 10:30 | NURSING ---
Patient aware of dc instructions and verbalized understanding.
== END 2024-04-08 10:30 | disposition home health service (06) | DRG 560 ==
PROVIDERS: Admitting Provider Internal Medicine; PCP Family Medicine; Referring Provider Internal Medicine; Visit Provider Internal Medicine
DX: S72.141D Displaced intertrochanteric fracture of right femur, subsequent encounter for closed fracture with routine healing (principal); D62 Acute posthemorrhagic anemia; J44.9 Chronic obstructive pulmonary disease, unspecified; E03.9 Hypothyroidism, unspecified; F32.9 Major depressive disorder, single episode, unspecified; F17.210 Nicotine dependence, cigarettes, uncomplicated; E88.09 Other disorders of plasma-protein metabolism, not elsewhere classified; E55.9 Vitamin D deficiency, unspecified; W01.0XXD Fall on same level from slipping, tripping and stumbling without subsequent striking against object, subsequent encounter; F41.9 Anxiety disorder, unspecified; Z79.01 Long term (current) use of anticoagulants; Z79.899 Other long term (current) drug therapy; G47.00 Insomnia, unspecified
CPT/HCPCS: 36415; 80048; 80053; 83735; 84100; 84439; 84443; 85014; 85018; 85027; 86376; 86800; 94668; 97110; 97116; 97150; 97162; 97166; 97530; 97535; 97802; 99406

== ENCOUNTER 2024-05-10 16:38 | Outpatient (CLI) | payer MEDICARE, OTHER, SELFPAY ==
--- NOTE | 2024-05-10 16:42 | CT_ITS ---
STUDY: LOW DOSE CT LUNG CANCER SCREENING REASON FOR EXAM: Female, 73 years old. and gt; 30pack years RADIATION DOSAGE (If Supplied By Facility): CTDIvol = ( 2.01 ) mGy, DLP = ( 65.70 ) mGycm TECHNIQUE: No contrast was administered. Low dose technique was utilized (average mAS-38 and kVp 120). 1.25 mm axial source images with a slice interval of 1.25-mm were reconstructed in lung windows. 2.5 mm axial source images with a slice interval of 2.5-mm were reconstructed in lung windows. 5.0 mm axial source images with a slice interval of 5.0-mm were reconstructed in soft tissue windows. COMPARISON: Comparison is made with prior study dated April 18, 2021. NODULES: Stable partially calcified nodule in the anterior aspect of the right upper lobe measuring 2.7 mm as seen on axial image #70. Emphysema: Hyperinflation. Mild degree of emphysematous changes. Endobronchial lesion: None Aorta: Atherosclerotic calcific plaques of the aortic arch. CORONARY ARTERIES: Coronary artery calcification is seen. Heart: Marked Pulmonary artery: Unremarkable Mediastinal nodes: Small mediastinal lymph nodes. Other chest and abdominal findings: CT/Low Dose CT Lung Screening IMPRESSION: Lung-RADS category 2 - Continue annual screening with LDCT in 12 months. IMPORTANT NOTES FOR USE: ACR Lung-RADS Version 1.1 Assessment Categories Release Date: 2018 Category: Coded 0-4 bases on nodule(s) with highest degree of suspicion. Negative screen is defined as categories 1 and 2; a positive screen is defined as categories 3 and 4. Category 3 and 4A nodules that are unchanged on interval CT should be coded as category 2, and individuals returned to screening in 12 months. Category 4X: Category 3 or 4 nodules with additional imaging findings that increase the suspicion of lung cancer, such as spiculation, GGN that doubles in size in 1 year, enlarged lymph notes, etc. Category Modifiers: S (significant finding unrelated to lung cancer) Electronically Signed: Philip Bose MD at 11:55 EDT ,
== END 2024-05-10 23:59 | disposition home or self-care (01) ==
LOC: CT 16:38
PROVIDERS: PCP Family Medicine; Referring Provider Family Medicine; Visit Provider Family Medicine
DX: Z12.2 Encounter for screening for malignant neoplasm of respiratory organs (principal); F17.210 Nicotine dependence, cigarettes, uncomplicated
CPT/HCPCS: 71271

== ENCOUNTER → 2024-06-15 | Outpatient (CLI) | payer MEDICARE, OTHER, SELFPAY ==
--- NOTE | 2024-06-15 12:49 | BI_ITS ---
MAMMOGRAPHY - BILATERAL SCREENING REASON FOR EXAM: Female, 73 years old. Routine annual screening examination. PERTINENT HISTORY: Aunt with breast cancer. TECHNIQUE: Digital bilateral breast miguel ángel (3D mammographic acquisition) in the CC and MLO projections. 2-D mediolateral oblique (MLO) and craniocaudad (CC) views of both breasts were obtained. CAD: Full Field Digital Mammography with Computer Added Detection was performed. COMPARISON: Comparison is made with prior study dated June 03, 2020 and April 24, 2019. FINDINGS: Breast Composition: There are scattered areas of fibroglandular density. There are no dominant masses or suspicious calcifications. No other significant abnormalities are identified. There has been no significant change since the prior study. BI/SCRN MAMM (CAD)W/MIGUEL ÁNGEL BILAT IMPRESSION: Stable bilateral screening mammogram. Yearly follow-up mammogram recommended. (A) ASSESSMENT CATEGORY: BIRADS Category 1: Negative. A letter regarding these results will be sent to the patient by the facility within 30 days. Approximately 10% of breast cancers are not detected by mammography. A normal mammogram should not delay biopsy of a clinically suspicious abnormality. [id number] Electronically Signed: Philip Bose MD at 14:12 EDT ,
--- NOTE | 2024-06-15 12:54 | BD_ITS ---
STUDY: DUAL ENERGY X-RAY ABSORPTIOMETRY / DXA REASON FOR EXAM: Female, 73 years old. M810 TECHNIQUE: Bone Mineral Density (BMD) measurements of both forearms were obtained. COMPARISON: None. FINDINGS: Right Forearm: g/cm2 (0.375) / T-score (-3.8) / Z-score (-1.5) Left Forearm: g/cm2 (0.392) / T-score (-3.5) / Z-score (-1.2) BD/Dexa Bone Density/Append Skel IMPRESSION: The patient is considered osteoporotic as outlined below according to World [place] [employer] Organization (WHO) criteria with a high fracture risk. Reference Information: The T-score is the number of standard deviations above or below the standard which is normal for young adults at their peak bone mineral density. The World Health Organization (WHO) interprets the T-scores as follows: Above -1 Normal bone density Between -1 and -2.5 Osteopenia Equal to / or below -2.5 Osteoporosis As a practical clinical guideline, osteopenia may be graded as follows: Mild -1 through -1.5 Moderate -1.6 through -2.0 Severe -2.1 through -2.4 The Z-score is the number of standard deviations above or below age-matched controls. A Z-score of less than -1.5 would be considered abnormal. References: 1. NIH Osteoporosis and Related Bone Diseases www osteo.org 2. International Society for Clinical Densitometry www iscd.org 3. National Osteoporosis Foundation www nof.org Electronically Signed: Philip Bose MD at 13:25 EDT ,
== END | disposition home or self-care (01) ==
LOC: OPBD 12:49
PROVIDERS: PCP Family Medicine; Referring Provider Family Medicine; Visit Provider Family Medicine
DX: Z12.31 Encounter for screening mammogram for malignant neoplasm of breast (principal); M81.0 Age-related osteoporosis without current pathological fracture; F17.201 Nicotine dependence, unspecified, in remission
CPT/HCPCS: 77063; 77067; 77080; 77081

== ENCOUNTER 2025-05-19 12:15 | Emergency (ER) | payer MEDICARE, SELFPAY ==
[2025-05-19 12:15] VITALS: BP 111/63; PULSE 74; RESP 18; TEMP 36.9; O2SAT 96
[2025-05-19 13:31] VITALS: BP 138/70; PULSE 68; RESP 18; O2SAT 98
[2025-05-19 16:45] VITALS: BP 120/78; PULSE 68; RESP 18; TEMP 36.6; O2SAT 98
== END 2025-05-19 16:45 | disposition home or self-care (01) ==
PROVIDERS: Emergency Provider Emergency Medicine; PCP Family Medicine; Visit Provider Emergency Medicine
DX: S79.911A Unspecified injury of right hip, initial encounter (principal); J44.9 Chronic obstructive pulmonary disease, unspecified; D27.0 Benign neoplasm of right ovary; W01.0XXA Fall on same level from slipping, tripping and stumbling without subsequent striking against object, initial encounter; Z96.89 Presence of other specified functional implants; F41.9 Anxiety disorder, unspecified; F32.A Depression, unspecified; F17.210 Nicotine dependence, cigarettes, uncomplicated; Z79.82 Long term (current) use of aspirin; Z79.899 Other long term (current) drug therapy
CPT/HCPCS: 73502; 73700; 96374; 96375; 99283; A4216; J2405

== ENCOUNTER → 2025-08-01 | Outpatient (CLI) | payer MEDICARE, SELFPAY ==
--- NOTE | 2025-08-01 15:25 | US_ITS ---
PROCEDURE: PELVIC W/ TRANSVAGINAL REASON FOR EXAM: DERMOID CYST TECHNIQUE: Procedure Code: [id number] Modality: US Procedure: PELVIC W/ TRANSVAGINAL COMPARISON: None FINDINGS: Measurements: Uterus: 4.8 cm x 3.7 cm x 2.3 cm with a volume of 21.7 mL Endometrial Thickness: 2 mm. Right Ovary: 2.2 cm x 1.9 cm x 1.6 cm with a volume of 3.7 mL. Left Ovary: Not visualized. TRANSABDOMINAL: Uterus: Normal size, myometrial echotexture, and contour. Endometrium: Unremarkable. Right ovary: There is a 3.9 cm 3.7 cm 4.5 cm solid echogenic nodule within the right ovary in keeping with dermoid cyst. There is also evidence of a 1.3 cm 1.2 cm x 0.9 cm ovarian cyst. Left ovary: Not visualized. Other: No large pelvic mass identified. Transvaginal sonography was performed to better visualize the endometrium. TRANSVAGINAL: Uterus: Anteverted. Endometrium: Normal echotexture. Right ovary: 3.9 cm 3.7 cm 4.5 cm echogenic nodule within the ovary in keeping with dermoid. Left ovary: Not visualized. Other adnexal findings: None. Cul-de-sac: No free intraperitoneal fluid identified. Tenderness: No tenderness US/Pelvic w/ Transvaginal IMPRESSION: 3.9 cm 3.7 cm 4.5 cm dermoid in the right ovary. 1.3 cm x 1.2 cm 0.9 cm right ovarian cyst. Reading Location: [place] [id number]
--- OUTSIDE RECORDS SUMMARY | 2025-08-01 21:18 | XMS RPT_ITS | CCD ---
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 0.25 mcg capsule 0.25 mcg PO DAILY #30 caps 4 Unknown Rx calcium carbonate 500 mg (2.5 x 200 mg calcium (500 04/07/24 Unknown Rx mg)) PO BIDCM #60 tabs mirtazapine 30 mg tablet 30 mg PO QHS #30 tabs 04/07/24 Unk nown Rx naproxen 375 mg tablet 375 mg PO BIDCM #60 tabs 04/07/24 Unknown Rx nicotine 14 mg/24 hr daily 14 mg transdermal DAILY #14 ea Unknown Rx transdermal patch sennosides 8.6 mg-docusate sodium 2 tab PO BID #120 tabs 04/07/24 U nknown Rx 50 mg tablet (Stool Softener-Stimulant Laxative) oxycodone 5 mg tablet 5 mg PO Q6H PRN pain 4 or > 3 days 05/19/25 Unknown Rx #12 tabs Allergy/AdvReac Type Severity Reaction Status Date / Time Tetracyclines AdvReac Nausea Verified 05/19/25 12:15 Family History Father Lung disease Cancer esophageal Mother Cancer Sister Cancer Sister Uterine cancer Surgical History History of open reduction and internal fixation (ORIF) procedure History of pelvic surgery History of ankle surgery H/O knee surgery Social History household members: family housing: house Smoking Status: Current every day smoker tobacco type: cigarettes Tobacco: How many years used: 52 details: No recent use substance use type: marijuana ROS ROS ED Constitutional Constitutional ED: Denies chills or fever(s) Musculoskeletal Musculoskeletal: Reports extremity pain; Denies neck pain Integumentary Denies Abrasions, rash or wounds Neurologic Neurologic: Denies paresthesias or weakness EXAM Physical Exam Const Vital Signs: 05/19/25 12:15 05/19/25 13:31 Temperature 98.5 F Temperature Source Oral Pulse Rate 74 68 Respiratory Rate 18 18 Blood Pressure 111/63 138/70 H Blood Pressure Mean 79 92 Pulse Ox 96 98 Oxygen Delivery Method Room Air Positive well nourished and well developed General Appearance ED: well developed and NAD Neck full ROM and supple Back/Spine normal ROM and normal to inspection Extremity Extremity Narrative: Tender to palpation right greater trochanter/hip area. There is no deformity. Limited range of motion due to pain but she is able to flex the thigh up and plantar heel on the bed. When I do this, passive internal/external rotation creates a lot of right groin pain. Pelvis is stable to AP compression, ASIS is nontender. Abdomen nontender. Distal thigh and knee are nontender, soft, all compartments nondistended. The rest of the extremity exam is benign, full range of motion. Neuro oriented x3, no focal motor deficits and no sensory deficits noted Sensorium / Orientation: alert Psych mental status grossly normal and thought process normal Skin no wounds Rashes: no rashes MDM MDM MDM Narrative Medical decision making narrative: Initially three-view x-ray series of the right hip including the pelvis were obtained, and on my interpretation there is no acute fracture. She (more content not included)... Normal [facility] Extremity Lower without Cont raon 05-19-2025 Extremity Lower without Contra [facility] [address] [place], [place] [address] Extremity Lower without Contra MR#: [id number] Acct: [id number] Name: HETAL SINGH Rep #: [id number] : 1950 F 74 From: Matthew Franco MD PCP: Dr. Josias Knowles MD Status: REG ER Study: Extremity Lower without Contra Date of Exam: 0 05/19/25 Exam# [id number] Ordering Dr: Juan Francisco Taylor MD PROCEDURE: EXTREMITY LOWER WITHOUT CONTRA 05/19/2025 REASON FOR EXAM: INJURY, NML XR TECHNIQUE: EXTREMITY LOWER WITHOUT CONTRA Coronal and Sagittal reconstruction series were provided. One or more dose reduction techniques were used (e.g., Automated exposure control, adjustment of the mA and/or kV according to patient size, use of iterative reconstruction technique. RADIATION DOSE SUMMARY: CTDlvol: 12.06 mGy DLP: 424.68 mGycm FINDINGS: Incidentally seen within the right lower quadrant is an ovarian dermoid cyst. This measures 4.7 x 3.2 cm. This could be further evaluated with a pelvic ultrasound. There has been prior internal fixation of a hip fracture with an intramedullary martín as well as a dynamic compression screw. Prior internal fixation of the pubis. No acute fracture deformity. No soft tissue gas. No pathologic fluid collection. CT/Extremity Lower without Contra IMPRESSION: Prior internal fixation of right hip. No acute deformity. Incidental right-sided ovarian dermoid cyst Reading Location: [facility] CC: Dr. Juan Francisco Taylor MD; Dr. 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 Josias Knowles MD Status: PRE ER Study: HIP, UNI W/ Pelvis 2-3 Views Date of Exam: 04/08 Exam# [id number] Ordering Dr: David Weathers MD EXAM: XR Right Hip With Pelvis When Performed, 2 or 3 Views CLINICAL INDICATION: FALL, PAIN TECHNIQUE: Two or three views of the right hip with pelvis when performed. COMPARISON: No relevant prior studies available. FINDINGS: BONES/JOINTS: Intramedullary martín fixation with fixation pin through the right femoral head. Fixation plate and screw through the pubic symphysis. Fixation screws through the sacroiliac joints, bilaterally. No dislocation. No acute fracture. SOFT TISSUES: Unremarkable. RAD/HIP, UNI W/ Pelvis 2-3 Views IMPRESSION: 1. No acute fracture. 2. Postoperative changes as above. Reading Location: [facility] CC: Dr. Josias Knowles MD; Dr. 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: Signed Normal [facility] Absolute lymphocyte countOrd ered By: Tesfaye Barahona on 03-23-2024 Lymphocytes Auto (Unsp spec) [#/Vol] 1.71 10*3/uL 0.83-4.51 [facility] Automated lymphocyte count a s percentage of total leukocytesOrdered By: Tesfaye Barahona on 03-23-2024 Lymphocytes/100 WBC Auto (Unsp spec) 31.2 % 19-41 [facility] Basophil percentageOrdered B y: Tesfaye Barahona on 03-23-2024 Hemoglobin (Bld) [Mass/Vol] 10.5 g/dL 12.0-15.0 [facility] Basophils/100 WBC (Bld) 1.3 % 0-1 [facility] Chloride [Moles/Vol] 114 mmol/L 98-107 [facility] Eosinophils/100 WBC (Bld) 2.4 % 0-5 [facility] Glucose [Mass/Vol] 93 mg/dL 74-106 [facility] Monocytes/100 WBC (Bld) 10.9 % 0-10 [facility] Neutrophils (Bld) [#/Vol] 3.0 10*3/uL 2.0-7.7 [facility] Neutrophils/100 WBC (Bld) 53.8 % 47-70 [facility] Potassium [Moles/Vol] 4.2 mmol/L 3.5-5.1 [facility] Sodium [Moles/Vol] 142 mmol/L 136-145 [facility] WBC (Bld) [#/Vol] 5.5 10*3/uL 4.4-11.0 [facility] Determination of erythrocyte mean corpuscular volume (MCV)Ordered By: Tesfaye Barahona on 03-23-2024 MCV (RBC) [Entitic vol] 92.7 fL 81-99 [facility] Erythrocyte distribution wid th ratioOrdered By: Tesfaye Barahona on 03-23-2024 Erythrocyte distribution width (RBC) [Ratio] 13.2 % 11.6-14.6 [facility] Erythrocyte distribution wid th standard deviationOrdered By: Tesfaye Barahona on 03-23-2024 Erythrocyte distribution width (RBC) [Entitic vol] 44.3 fL 35.1-43.9 [facility] Hematocrit Auto (Bld) [Volum e fraction]Ordered By: Tesfaye Barahona on 03-23-2024 Hematocrit (Bld) [Volume fraction] 27.9 % 37-47 [facility] Immature granulocytes/100 WB C Auto (Bld)Ordered By: Tesfaye Barahona on 03-23-2024 Immature granulocytes/100 WBC (Bld) 0.400 % 0.0-0.9 [facility] Comment on above: IG% - Immature Granu locytes (promyelocytes, myelocytes and metamyelocytes) > 1% indicates that a LEFT SHIFT is Present. Laboratory - Chemistry and C hemistry - challengeOrdered By: Tesfaye Barahona on 03-23-2024 CO2 [Moles/Vol] 26.0 mmol/L 21.0-32.0 [facility] Urea nitrogen/Creatinine [Mass ratio] 13.4 mg/mg 10-20 [facility] Laboratory - Hematology and Cell countsOrdered By: Tesfaye Barahona on 03-23-2024 MCH (RBC) [Entitic mass] 28.9 pg 27.0-32.0 [facility] MCHC (RBC) [Mass/Vol] 31.2 g/dL 32-36 [facility] Nucleated RBC/100 WBC (Bld) [Ratio] 0 % 0-5 [facility] Platelet mean volume (Bld) [Entitic vol] 9.7 fL 6.2-12.0 [facility] Platelets (Bld) [#/Vol] 150 10*3/uL 150-450 [facility] No Panel InformationOrdered By: Tesfaye Barahona on 03-23-2024 Estimated Creatinine Clearance Calc 57.20 ml/min [facility] Estimated GFR (MDRD) Amer 88 mL/min >60 [facility] Comment on above: GFR Calc Estimated GFR (MDRD) Non-Af Amer 72 mL/min >60 [facility] Comment on above: Non- GFR Calc RBC Auto (Bld) [#/Vol]Ordere d By: Tesfaye Barahona on 03-23-2024 RBC (Bld) [#/Vol] 3.01 10*6/uL 4.2-5.4 [facility] Serum or plasma calcium shawn urement (mass/volume)Ordered By: Tesfaye Barahona on 03-23-2024 Calcium [Mass/Vol] 7.8 mg/dL 8.5-10.1 [facility] Serum or plasma creatinine m easurement (mass/volume)Ordered By: Tesfaye Barahona on 03-23-2024 Creatinine [Mass/Vol] 0.82 mg/dL 0.55-1.02 [facility] Comment on above: The validity of the calculated GFR & GFRAA in patients over 70 years has not been determined. Clinical correlation is essential. Serum or plasma urea nitroge n measurement (mass/volume)Ordered By: Tesfaye Barahona on 03-23-2024 Urea nitrogen [Mass/Vol] 11 mg/dL 7-18 [facility] Thin prep Papanicolaou smear with manual screeningOrdered By: Tesfaye Barahona on 03-23-2024 Thin prep Papanicolaou smear with manual screening 2 5-15 [facility] No Panel InformationOrdered By: Tesfaye Coombs on 03-21-2024 Vitamin D 25-Hydroxy 16.7 ng/mL [facility] Comment on above: Vitamin D 25(OH) Sta tus Range Deficiency <20 ng/mL (50nmol/L) Insufficiency 20 - 30 ng/mL (50 - 75 nmol/L) Sufficiency 30 - 100 ng/mL (75 - 250 nmol/L) Toxicity >100 ng/mL (>250 nmol/L) Basophil percentageOrdered B y: Pascual Fox on 03-20-2024 Chloride [Moles/Vol] 105 mmol/L 98-107 [facility] Glucose [Mass/Vol] 125 mg/dL 74-106 [facility] Comment on above: Fasting Glucose resu lt from 100 to 125 mg/dL suggests IMPAIRED HOMEOSTASIS per A.D.A. criteria. Hemoglobin (Bld) [Mass/Vol] 14.2 g/dL 12.0-15.0 [facility] Potassium [Moles/Vol] 4.3 mmol/L 3.5-5.1 [facility] Sodium [Moles/Vol] 137 mmol/L 136-145 [facility] WBC (Bld) [#/Vol] 12.7 10*3/uL 4.4-11.0 [facility] Determination of erythrocyte mean corpuscular volume (MCV)Ordered By: Pascual Fox on 03-20-2024 MCV (RBC) [Entitic vol] 88.5 fL 81-99 [facility] Erythrocyte distribution wid th ratioOrdered By: Pascual Fox on 03-20-2024 Erythrocyte distribution width (RBC) [Ratio] 12.8 % 11.6-14.6 [facility] Erythrocyte distribution wid th standard deviationOrdered By: Pascual Fox on 03-20-2024 Erythrocyte distribution width (RBC) [Entitic vol] 41.7 fL 35.1-43.9 [facility] Hematocrit Auto (Bld) [Volum e fraction]Ordered By: Pascual Fox on 03-20-2024 Hematocrit (Bld) [Volume fraction] 44.0 % 37-47 [facility] Laboratory - Chemistry and C hemistry - challengeOrdered By: Pascual Fox on 03-20-2024 CO2 [Moles/Vol] 29.0 mmol/L 21.0-32.0 [facility] Urea nitrogen/Creatinine [Mass ratio] 18.0 mg/mg 10-20 [facility] Laboratory - Hematology and Cell countsOrdered By: Pascual Fox on 03-20-2024 MCH (RBC) [Entitic mass] 28.6 pg 27.0-32.0 [facility] MCHC (RBC) [Mass/Vol] 32.3 g/dL 32-36 [facility] Platelet mean volume (Bld) [Entitic vol] 9.3 fL 6.2-12.0 [facility] Platelets (Bld) [#/Vol] 219 10*3/uL 150-450 [facility] No Panel InformationOrdered By: Pascual Fox on 03-20-2024 Estimated Creatinine Clearance Calc 47.55 ml/min [facility] Estimated GFR (MDRD) Amer 86 mL/min >60 [facility] Comment on above: GFR Calc Estimated GFR (MDRD) Non-Af Amer 71 mL/min >60 [facility] Comment on above: Non- GFR Calc RBC Auto (Bld) [#/Vol]Ordere d By: Pascual Fox on 03-20-2024 RBC (Bld) [#/Vol] 4.97 10*6/uL 4.2-5.4 [facility] Serum or plasma calcium shawn urement (mass/volume)Ordered By: Pascual Fox on 03-20-2024 Calcium [Mass/Vol] 9.2 mg/dL 8.5-10.1 [facility] Serum or plasma creatinine m easurement (mass/volume)Ordered By: Pascual Fox on 03-20-2024 Creatinine [Mass/Vol] 0.83 mg/dL 0.55-1.02 [facility] Comment on above: The validity of the calculated GFR & GFRAA in patients over 70 years has not been determined. Clinical correlation is essential. Serum or plasma urea nitroge n measurement (mass/volume)Ordered By: Pascual Fox on 03-20-2024 Urea nitrogen [Mass/Vol] 15 mg/dL 7-18 [facility] Thin prep Papanicolaou smear with manual screeningOrdered By: Pascual Fox on 03-20-2024 Thin prep Papanicolaou smear with manual screening 3 5-15 [facility] Basophil percentageon 2021 Chloride [Moles/Vol] 108 mmol/L 98-107 [facility] Work Phone: Glucose [Mass/Vol] 125 mg/dL 74-106 [facility] Work Phone: Comment on above: Fasting Glucose resu lt from 100 to 125 mg/dL suggests IMPAIRED HOMEOSTASIS per A.D.A. criteria. Potassium [Moles/Vol] 2.9 mmol/L 3.5-5.1 [facility] Work Phone: Sodium [Moles/Vol] 145 mmol/L 136-145 [facility] Work Phone: WBC (Bld) [#/Vol] 7.2 10*3/uL 4.4-11.0 [facility] Work Phone: Blood erythrocytes count (nu mber/volume)on 10-05-2022 RBC (Bld) [#/Vol] 4.62 10*6/uL 4.2-5.4 [facility] Work Phone: Blood hemoglobin measurement (mass/volume)on 10-05-2022 Hemoglobin (Bld) [Mass/Vol] 14.1 g/dL 12.0-15.0 [facility] Work Phone: Blood platelet mean volumeon 10-05-2022 Platelet mean volume (Bld) [Entitic vol] 10.2 fL 6.2-12.0 [facility] Work Phone: Determination of erythrocyte mean corpuscular volume (MCV)on 10-05-2022 MCV (RBC) [Entitic vol] 92.0 fL 81-99 [facility] Work Phone: Hematocrit Auto (Bld) [Volum e fraction]on 10-05-2022 Hematocrit (Bld) [Volume fraction] 42.5 % 37-47 [facility] Work Phone: Laboratory - Chemistry and C hemistry - challengeon 10-05-2022 CO2 [Moles/Vol] 30.0 mmol/L 21.0-32.0 [facility] Work Phone: Urea nitrogen/Creatinine [Mass ratio] 16.3 mg/mg 10-20 [facility] Work Phone: Laboratory - Hematology and Cell countson 10-05-2022 Erythrocyte distribution width (RBC) [Entitic vol] 41.9 fL 35.1-43.9 [facility] Work Phone: Erythrocyte distribution width (RBC) [Ratio] 12.4 % 11.6-14.6 [facility] Work Phone: MCH (RBC) [Entitic mass] 30.5 pg 27.0-32.0 [facility] Work Phone: MCHC Auto (RBC) [Mass/Vol]on 10-05-2022 MCHC (RBC) [Mass/Vol] 33.2 g/dL 32-36 [facility] Work Phone: No Panel Informationon 10-05 Estimated GFR (MDRD) Amer 100 mL/min >60 [facility] Work Phone: Comment on above: GFR Calc Estimated GFR (MDRD) Non-Af Amer 82 mL/min >60 [facility] Work Phone: Comment on above: Non- GFR Calc Platelets bldon 10-05-2022 Platelets (Bld) [#/Vol] 193 10*3/uL 150-450 [facility] Work Phone: Serum or plasma calcium shawn urement (mass/volume)on 10-05-2022 Calcium [Mass/Vol] 8.6 mg/dL 8.5-10.1 [facility] Work Phone: Serum or plasma creatinine m easurement (mass/volume)on 10-05-2022 Creatinine [Mass/Vol] 0.74 mg/dL 0.55-1.02 [facility] Work Phone: Comment on above: The validity of the calculated GFR & GFRAA in patients over 70 years has not been determined. Clinical correlation is essential. Serum or plasma urea nitroge n measurement (mass/volume)on 10-05-2022 Urea nitrogen [Mass/Vol] 12 mg/dL 7-18 [facility] Work Phone: Thin prep Papanicolaou smear with manual screeningon 10-05-2022 Thin prep Papanicolaou smear with manual screening 7 5-15 [facility] Work Phone: Basophil percentageon 2021 Bilirubin [Mass/Vol] 0.30 mg/dL 0.20-1.00 [facility] Work Phone: Comment on above: For patients on eltr ombopag therapy, use of Dimension [place] TBIL is not recommended. Chloride [Moles/Vol] 106 mmol/L 98-107 [facility] Work Phone: Glucose [Mass/Vol] 96 mg/dL 74-106 [facility] Work Phone: Potassium [Moles/Vol] 3.9 mmol/L 3.5-5.1 [facility] Work Phone: Protein [Mass/Vol] 6.8 g/dL 6.4-8.2 [facility] Work Phone: Sodium [Moles/Vol] 139 mmol/L 136-145 [facility] Work Phone: Laboratory - Chemistry and C hemistry - challengeon 03-24-2022 ALP [Catalytic activity/Vol] 51 U/L 45-117 [facility] Work Phone: ALT [Catalytic activity/Vol] 17 U/L 13-56 [facility] Work Phone: CO2 [Moles/Vol] 28.0 mmol/L 21.0-32.0 [facility] Work Phone: Globulin (S) [Mass/Vol] 3.3 g/dL 2.2-4.2 [facility] Work Phone: Urea nitrogen/Creatinine [Mass ratio] 23.1 mg/mg 10- [facility] Work Phone: No Panel Informationon 03-24 Estimated GFR (MDRD) Amer 107 mL/min >60 [facility] Work Phone: Comment on above: GFR Calc Estimated GFR (MDRD) Non-Af Amer 89 mL/min >60 [facility] Work Phone: Comment on above: Non- GFR Calc Serum or plasma albumin shawn urement (mass/volume)on 03-24-2022 Albumin [Mass/Vol] 3.5 g/dL 3.2-5.0 [facility] Work Phone: Serum or plasma albumin/glob ulin mass ratioon 03-24-2022 Albumin/Globulin [Mass ratio] 1.1 {ratio} 0.9-2.4 [facility] Work Phone: Serum or plasma calcium shawn urement (mass/volume)on 03-24-2022 Calcium [Mass/Vol] 8.8 mg/dL 8.5-10.1 [facility] Work Phone: Serum or plasma cortisol nataly surement (mass/volume)on 03-24-2022 Cortisol [Mass/Vol] 17.00 ug/dL 3.44-22.45 [facility] Work Phone: Comment on above: Adult (AM) 5.27 - 22 .45 ug/dL Adult (PM) 3.44 - 16.76 ug/dLPlease note revised CORTISOL reference range effective 2020. Serum or plasma creatinine m easurement (mass/volume)on 03-24-2022 Creatinine [Mass/Vol] 0.69 mg/dL 0.55-1.02 [facility] Work Phone: Comment on above: The validity of the calculated GFR & GFRAA in patients over 70 years has not been determined. Clinical correlation is essential. Serum or plasma urea nitroge n measurement (mass/volume)on 03-24-2022 Urea nitrogen [Mass/Vol] 16 mg/dL 7-18 [facility] Work Phone: Thin prep Papanicolaou smear with manual screeningon 03-24-2022 Thin prep Papanicolaou smear with manual screening 14 U/L 15-37 [facility] Work Phone: Thin prep Papanicolaou smear with manual screening 5 5-15 [facility] Work Phone: Absolute lymphocyte counton 03-14-2022 Lymphocytes Auto (Unsp spec) [#/Vol] 1.78 10*3/uL 0.83-4.51 [facility] Work Phone: Basophil percentageon 2021 Basophils/100 WBC (Bld) 1.7 % 0-1 [facility] Work Phone: Bilirubin [Mass/Vol] 0.50 mg/dL 0.20-1.00 [facility] Work Phone: Comment on above: For patients on eltr ombopag therapy, use of Dimension [place] TBIL is not recommended. Chloride [Moles/Vol] 105 mmol/L 98-107 [facility] Work Phone: Eosinophils/100 WBC (Bld) 2.0 % 0-5 [facility] Work Phone: Glucose [Mass/Vol] 107 mg/dL 74-106 [facility] Work Phone: Comment on above: Fasting Glucose resu lt from 100 to 125 mg/dL suggests IMPAIRED HOMEOSTASIS per A.D.A. criteria. Neutrophils (Bld) [#/Vol] 3.5 10*3/uL 2.0-7.7 [facility] Work Phone: Neutrophils/100 WBC (Bld) 58.7 % 47-70 [facility] Work Phone: Potassium [Moles/Vol] 3.1 mmol/L 3.5-5.1 [facility] Work Phone: Protein [Mass/Vol] 7.5 g/dL 6.4-8.2 [facility] Work Phone: [phone] Sodium [Moles/Vol] 140 mmol/L 136-145 [facility] Work Phone: WBC (Bld) [#/Vol] 6.0 10*3/uL 4.4-11.0 [facility] Work Phone: Blood erythrocytes count (nu mber/volume)on 03-14-2022 RBC (Bld) [#/Vol] 4.49 10*6/uL 4.2-5.[address] [facility] [facility] [address] Work Phone: Blood hemoglobin measurement (mass/volume)on 03-14-2022 Hemoglobin (Bld) [Mass/Vol] 13.8 g/dL 12.0-15.0 [facility] Work Phone: Blood lymphocytes/100 leukoc yteson 03-14-2022 Lymphocytes/100 WBC (Bld) 29.8 % 19-41 [facility] Work Phone: Blood monocytes/100 leukocyt eson 03-14-2022 Monocytes/100 WBC (Bld) 7.5 % 0-10 [facility] Work Phone: Blood platelet mean volumeon 03-14-2022 Platelet mean volume (Bld) [Entitic vol] 10.3 fL 6.2-12.0 [facility] Work Phone: Determination of erythrocyte mean corpuscular volume (MCV)on 03-14-2022 MCV (RBC) [Entitic vol] 93.5 fL 81-99 [facility] Work Phone: Erythrocyte sedimentation ra dena 03-14-2022 ESR (Bld) [Velocity] 5 mm/h 0-30 [facility] Work Phone: Hematocrit Auto (Bld) [Volum e fraction]on 03-14-2022 Hematocrit (Bld) [Volume fraction] 42.0 % 37-47 [facility] Work Phone: Laboratory - Chemistry and C hemistry - challengeon 03-14-2022 ALP [Catalytic activity/Vol] 57 U/L 45-117 [facility] Work Phone: ALT [Catalytic activity/Vol] 21 U/L 13-56 [facility] Work Phone: CO2 [Moles/Vol] 28.0 mmol/L 21.0-32.0 [facility] Work Phone: Free T4 [Mass/Vol] 1.37 ng/dL 0.76-1.46 [facility] Work Phone: Globulin (S) [Mass/Vol] 3.3 g/dL 2.2-4.2 [facility] Work Phone: Urea nitrogen/Creatinine [Mass ratio] 15.6 mg/mg 10-20 [facility] Work Phone: Laboratory - Hematology and Cell countson 03-14-2022 Erythrocyte distribution width (RBC) [Entitic vol] 43.5 fL 35.1-43.9 [facility] Work Phone: Erythrocyte distribution width (RBC) [Ratio] 12.6 % 11.6-14.6 [facility] Work Phone: Immature granulocytes/100 WBC (Bld) 0.300 % 0.0-0.9 [facility] Work Phone: Comment on above: IG% - Immature Granu locytes (promyelocytes, myelocytes and metamyelocytes) > 1% indicates that a LEFT SHIFT is Present. MCH (RBC) [Entitic mass] 30.7 pg 27.0-32.0 [facility] Work Phone: Nucleated RBC/100 WBC (Bld) [Ratio] 0 % 0-5 [facility] Work Phone: MCHC Auto (RBC) [Mass/Vol]on 03-14-2022 MCHC (RBC) [Mass/Vol] 32.9 g/dL 32-36 [facility] Work Phone: No Panel Informationon 03-14 Anti-Nuclear Antibody Screen Negative Negative [facility] Work Phone: Comment on above: Performed at: [employer] [place], [place] [id number] Director: Ray Blanca PhD, Phone: [phone] Dehydroepiandrosterone Sulfate 64.5 ug/dL [facility] Work Phone: Comment on above: Performed at: [employer] [place], [place] [id number] Director: Ray Blanca PhD, Phone: [phone] Estimated GFR (MDRD) Amer 87 mL/min >60 [facility] Work Phone: Comment on above: GFR Calc Estimated GFR (MDRD) Non-Af Amer 72 mL/min >60 [facility] Work Phone: Comment on above: Non- GFR Calc Free Triiodothyronine (T3) pg/dL 2.2 pg/mL 2.18-3.98 [facility] Work Phone: Miscellaneous Test See comment [facility] Work Phone: Comment on above: TEST RESULT LIMITSVi tamin B5, 32.5 ng/mL 12.9-253.1 TEST[facility] PERFORMED AT [facility]. ORIGINAL REPORT ON FILE IN LAB CONTAINS ADDITIONAL TEST SITE INFORMATION. Thyroid Stimulating Hormone (TSH) 3.36 uIU/mL 0.358-3.74 [facility] Work Phone: Platelets bldon 03-14-2022 Platelets (Bld) [#/Vol] 189 10*3/uL 150-450 [facility] Work Phone: Serum or plasma albumin shawn urement (mass/volume)on 03-14-2022 Albumin [Mass/Vol] 4.2 g/dL 3.2-5.0 [facility] Work Phone: Serum or plasma albumin/glob ulin mass ratioon 03-14-2022 Albumin/Globulin [Mass ratio] 1.3 {ratio} 0.9-2.4 [facility] Work Phone: Serum or plasma calcium shawn urement (mass/volume)on 03-14-2022 Calcium [Mass/Vol] 8.9 mg/dL 8.5-10.1 [facility] Work Phone: Serum or plasma cortisol nataly surement (mass/volume)on 03-14-2022 Cortisol [Mass/Vol] 34.60 ug/dL 3.44-22.45 [facility] Work Phone: Comment on above: Adult (AM) 5.27 - 22 .45 ug/dL Adult (PM) 3.44 - 16.76 ug/dLPlease note revised CORTISOL reference range effective 2020. Serum or plasma creatinine m easurement (mass/volume)on 03-14-2022 Creatinine [Mass/Vol] 0.83 mg/dL 0.55-1.02 [facility] Work Phone: Comment on above: The validity of the calculated GFR & GFRAA in patients over 70 years has not been determined. Clinical correlation is essential. Serum or plasma transthyreti n measurement (mass/volume)on 03-14-2022 Prealbumin [Mass/Vol] 18.3 mg/dL 20.0-40.0 [facility] Work Phone: Serum or plasma urea nitroge n measurement (mass/volume)on 03-14-2022 Urea nitrogen [Mass/Vol] 13 mg/dL 7-18 [facility] Work Phone: Thin prep Papanicolaou smear with manual screeningon 03-14-2022 Thin prep Papanicolaou smear with manual screening 19 U/L 15-37 [facility] Work Phone: Thin prep Papanicolaou smear with manual screening 7 5-15 [facility] Work Phone: Vital Signs Date Time Vital Sign Value Performing Clinician Faci lity 07-23-2025 15:02-0400 Diastolic blood pressure 94 mm[Hg] Dr. Josias Knowles MD Work Phone: [facility] 07-23-2025 15:02-0400 Systolic blood pressure 143 mm[Hg] Dr. Josias Knowles MD Work Phone: [facility] 07-23-2025 14:51-0400 Body height 167.[address] Josias Knowles MD Work Phone: [facility] 07-23-2025 14:51-0400 Body mass index (BMI) [Ratio] 18.8 kg/m2 Dr. Josias Knowles MD Work Phone: [facility] 07-23-2025 14:51-0400 Body weight 53.[address] Josias Knowles MD Work Phone: [facility] 05-19-2025 16:45-0400 Body temperature 98 [degF] Dr. Josias Knowles MD Work Phone: [facility] 05-19-2025 16:45-0400 Diastolic blood pressure 78 mm[Hg] Dr. Josias Knowles MD Work Phone: [facility] 05-19-2025 16:45-0400 Heart rate 68 /min Dr. Josias Knowles MD Work Phone: [facility] 05-19-2025 16:45-0400 Respiratory rate 18 /min Dr. Josias Knowles MD Work Phone: [facility] 05-19-2025 16:45-0400 SaO2% (BldA) [Mass fraction] 98 % Dr. Josias Knowles MD Work Phone: [facility] 05-19-2025 16:45-0400 Systolic blood pressure 120 mm[Hg] Dr. Josias Knowles MD Work Phone: [facility] 05-19-2025 12:15-0400 Body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 Course: 1. Right intertrochanteric fracture secondary to mechanical fall status post intramedullary nail 03/21/2024?73-year-old female presented to the hospital after mechanical fall landing on her right side leading to a right intertrochanteric fracture. She had this repaired on 03/21/2024 and did well postoperatively. She did have some anemia postoperatively, it is unclear whether or not there is was post surgical bleed or if this was due to dilution, she did drop from 14 down to8.7 however on recheck on the day of discharge she was up to 10.5 after her fluid had been discontinued. I discussed with her the plan for discharge to rehab today, she expressed understanding of the risk benefits of going to rehab and would like to go today. I do recommend monitoring her CBC in the rehab unitjust to evaluate for stability. She will need to be on Lovenox for the next 28 days per orthopedic surgery's recommendation, she can shower in 5 days and she will need to have her jeri removed in 2 weeks. Physical Exam Narrative General: Alert, Oriented x3, Cooperative, No apparent distress HEENT: Atraumatic, PERRLA, EOMI, Normocephalic Oral: Moist Mucosa Neck: Supple, No JVD Lungs: Diminished, Normal air movement, No rhonchi, No wheeze, No rales Cardiovascular: Regular rate, Regular Rhythm, Normal S1, Normal S2, No murmurs Abdomen: Soft, Non Tender, Non-Distended, No Hepato-splenomegaly Extremities: No edema, Capillary Refill Less than 3 Seconds Skin: No rashes, No breakdown, incision CDI Musculoskeletal: Tenderness to palpation of right hip Neurological: No focal neurological deficits, Motor Exam 5/5 strength throughout, Sensory exam intact to light touch and pain Psych/Mental Status: Normal Affect, Appropriate Weight / BMI Weight Weight: 136 lb 14.513 oz Body Mass Index (BMI) 22.1 ABG / Lab / Microbiology Data 03/23/24 13:25 03/23/24 06:43 Laboratory: Laboratory Results - last 24 hr 03/23/24 06:43: WBC 5.5, RBC 3.01 L, Hgb 8.7 L, Hct 27.9 L, MCV 92.7, MCH 28.9, MCHC 31.2 L, RDW Std Deviation 44.3 H, RDW Coeff of Charley 13.2, Plt Count 150, MPV9.7, Immature Gran % (Auto) 0.400, Neut % (Auto) 53.8, Lymph % (Auto) 31.2, Mellette% (Auto) 10.9 H, Eos % (Auto) 2.4, Baso % (Auto) 1.3 H, Absolute Neuts (auto) 3.0, Absolute Lymphs (auto) 1.71, Nucleated RBC % 0, Sodium 142, Potassium 4.2, Chloride 114 H, Carbon Dioxide 26.0, Anion Gap 2 L, BUN 11, Creatinine 0.82, Estim Creat Clear Calc 57.20, Est GFR (MDRD) Af Amer 88, Est GFR (MDRD) Non-Af 72, BUN/Creatinine Ratio 13.4, Glucose 93, Calcium 7.8 L 03/23/24 13:25: Hgb 10.5 L Meaningful Use Info Meaningful Use Meaningful Use Diagnoses (Choose all that apply): None applicable Ischemic Stroke Statin Dosing Therapy Reference: STATIN DOSE THERAPY REFERENCE: * Patients > 75 years receive moderate or high dose statin therapy. * Patients 75 years or YOUNGER should receive HIGH intensity statin dose unless contraindicated. You will be required to document reason for non-treatment if statin daily dose does not meet guidelines. HIGH DOSE STATIN THERAPY DAILY Atorvastatin > than or = to 40 mg Rosuvastatin > than or = to 20 mg Amlodipine + Atorvastatin > than or = to 2.5/40 mg Ezetimibe + Simvastatin 10/80 mg Simvastatin 80mg Discharge Plan Admission Admit Date/Time: 03/20/24 18:32 Attending Provider: Tesfaye Barahona Primary Care Provider: Josias Knowles Consulting Providers: Joi Bowens; Tesfaye Coombs Discharge Orders/Prescriptions Prescriptions: New calcium carbonate 200 mg calcium (500 mg) Tablet,Chewable 500 mg PO TIDCM Qty: 0 0RF sennosides-docusate sodium [Stool Softener-Stimulant Laxat] 8.6-50 mg Tablet 2 tab PO BID Qty: 0 0RF oxycodone 5 mg Tablet 5 mg PO Q4H PRN PRN (Reason: Pain Score 4-10) 5 Days Qty: 0 0RF enoxaparin 40 mg/0.4 mL Syringe 40 mg subcut DAILY 28 Days Qty: 11.2 0RF Continued doxepin 50 mg capsule 50 mg PO QHS Referrals / Follow Up: Josias Knowles MD [Primary Care Provider] - Tesfaye Coombs DO [Med Staff - Active Staff] - Within 2 Weeks (staple removal) Disposition Disposition (needs filled in before D/C Order can be placed): Long Term Facility Charges/Coding Visit Charges Inpatient E&M: 91120 Disch Hosp >30min 03/23/24 1722 <Electronically signed by Tesfaye Barahona MD> Cosigner Signature (if applicable): CC: Dr. Josias Knowles MD; Dr. Tesfaye Barahona MD~ Signed [facility] Work Phone: 1(747) 972-836105-09-2024 Discharge summary Author Tesfaye Barahona [facility] March 23, 2024 1:57pm Note Date/Time March 23, 2024 1:51pm [facility] Medical Records Department [address] [place] [address] Transfer to [facility] MR#: [id number] Acct: [id number] Name: HETAL SINGH Rep #:[id number] : 1950 73 From: Tesfaye vargas MD PCP: Dr. Josias Knowles MD Status:ADM IN Certification of patient admission REQUIRED AT TIME OF ADMISSION. I CERTIFY THAT [facility] ARE REQUIRED TO BE GIVEN ON AN IN-PATIENT BASIS BECAUSE OF THE ABOVE NAMED PATIENT'S NEED FOR ALF CARE ON A CONTINUING BASIS FOR THE CONDITION(S) FOR WHICH HE/SHE WAS RECEIVING IN-PATIENT HOSPITAL SERVICES PRIOR TO HIS/HER TRANSFER TO THE [facility]. 03/23/24 1357<Electronically signed by Tesfaye Barahona MD> Diet Diet Order/Speech Therapy: 03/22/24 05:06 Diet: Regular - General Is pt able to select menu?: Yes Routine Orders/Code Status Routine Lab Work: CBC and BMP Wound(s) right hip: Wound Type: Surgical Incision Therapies Physical Therapy: Eval and Treat Occupational Therapy: Eval and Treat Problem/Diagnosis (1) Right femoral fracture: Status: Acute Code(s): S72.91XA - Unspecified fracture of right femur, initial encounter for closed fracture Comment: Patient may shower postoperative day #5 if no drainage. Okay to leave incisions open to air after postoperative day #5. Continue Lovenox x 28 days upon discharge. Follow-up in 2 weeks for staple removal and x-rays. Plan 1. Right intertrochanteric fracture secondary to mechanical fall status post repair 03/21/2024 ? Continue with pain management ? PT/OT ?Awaiting placement at SNF 2. Tobacco abuse ? Stable ? Discussed cessation ? Continue with nicotine patch DVT: Lovenox Allergies/Procedures Done in Hospital Allergies Tetracyclines Adverse Reaction (Verified 03/20/24 15:52) Nausea Procedures: None Type of Care/Length of Stay Estimated LOS: Convalescent Care Less Than 30 days Type of Care Needed: Skilled Rehab Potential: Good Prognosis: Good Additional Orders/Day of Discharge Day of Discharge: 03/23/24 Dietary and Speech Recommendations Dietitian Recommendations/Changes: Recommend advance diet as tolerated to regular. Trend weights as available. Offer ONS as needed once PO established with meals; will d/c ensure plus HP withmedpass for now. Discharge Plan Admission Admit Date/Time: 03/20/24 18:32 Attending Provider: Tesfaye Barahona Primary Care Provider: Josias Knowles Consulting Providers: Joi Bowens; Tesfaye Coombs Discharge Orders/Prescriptions Prescriptions: New calcium carbonate 200 mg calcium (500 mg) Tablet,Chewable 500 mg PO TIDCM Qty: 0 0RF sennosides-docusate sodium [Stool Softener-Stimulant Laxat] 8.6-50 mg Tablet 2 tab PO BID Qty: 0 0RF oxycodone 5 mg Tablet 5 mg PO Q4H PRN PRN (Reason: Pain Score 4-10) 5 Days Qty: 0 0RF enoxaparin 40 mg/0.4 mL Syringe 40 mg subcut DAILY 28 Days Qty: 11.2 0RF Continued doxepin 50 mg capsule 50 mg PO QHS Referrals / Follow Up: Josias Knowles MD [Primary Care Provider] - Tesfaye Coombs DO [Med Staff - Active Staff] - Within 2 Weeks (staple removal) Disposition Disposition (needs filled in before D/C Order can be placed): Long Term Facility (1) Right femoral fracture Qualifiers: Encounter type: initial encounter Femur location: intertrochanteric Fracturetype: closed Fracture alignment: displaced Qualified Code(s): S72.141A - Displaced intertrochanteric fracture of right femur, initial encounter for closed fracture 03/23/24 1357 <Electronically signed by Tesfaye Barahona MD> Cosigner Signature (if applicable): CC: Dr. Josias Knowles MD; Dr. Joi Bowens MD; Dr. Tesfaye Coombs DO ~ [facility] Work Phone: 1(186) 253-708605-09-2024 Progress note Author Tesfaye Coombs [facility] March 23, 2024 12:50pm Note Date/Time March 23, 2024 12:50p [facility] Medical Records Department [address] [place] [address] Progress Note - Orthopedic 03/23/24 1248 MR#: [id number] Acct: [id number] Name: HETAL SINGH Rep #:[id number] : 1950 73 From: Tesfaye zamora DO PCP: Dr. Josias Knowles MD Status:ADM IN Location: [place] [address] Subjective Subjective Patient seen and examined. Denies any new complaints. Pain controlled. Deniesfevers, chills, nausea vomiting, chest pain or shortness of breath. Objective Data Objective Data Vital Signs: Vital Signs Temp Pulse Resp BP Pulse Ox O2 Del Method O2 Flow Rate 97.7 F L 62 16 106/49 L 99 Room Air 2 03/23/24 09:09 03/23/24 09:09 03/23/24 09:09 03/23/24 09:09 03/23/24 09:09 03/23/24 09:09 03/21/24 18:27 Oxygen Flow Rate (L/min) 2 Oxygen Delivery Method Room Air Weight: 136 lb 14.513 oz Body Mass Index (BMI) 22.1 Intake & Output: Intake and Output for Last 24 Hours 03/21/24 03/22/24 03/23/24 23:59 23:59 23:59 Intake Total 2099.16 / 2099.16 1437.42 / 1437.42 1863.33 / 1863.33 Output Total 750 / 1075 1175 / 1175 Balance 1349.16 / 1024.16 262.42 / 262.42 1863.33 / 1863.33 Lab / Micro Data 03/23/24 06:43 03/23/24 06:43 Labs: Laboratory Results - last 24 hr 03/23/24 06:43: WBC 5.5, RBC 3.01 L, Hgb 8.7 L, Hct 27.9 L, MCV 92.7, MCH 28.9, MCHC 31.2 L, RDW Std Deviation 44.3 H, RDW Coeff of Charley 13.2, Plt Count 150, MPV9.7, Immature Gran % (Auto) 0.400, Neut % (Auto) 53.8, Lymph % (Auto) 31.2, Mellette% (Auto) 10.9 H, Eos % (Auto) 2.4, Baso % (Auto) 1.3 H, Absolute Neuts (auto) 3.0, Absolute Lymphs (auto) 1.71, Nucleated RBC % 0, Sodium 142, Potassium 4.2, Chloride 114 H, Carbon Dioxide 26.0, Anion Gap 2 L, BUN 11, Creatinine 0.82, Estim Creat Clear Calc 57.20, Est GFR (MDRD) Af Amer 88, Est GFR (MDRD) Non-Af 72, BUN/Creatinine Ratio 13.4, Glucose 93, Calcium 7.8 L Physical Exam Narrative General - A&Ox3, NAD. VSS/AF Right lower extremity -incisional dressing C/D/I. SILT Sural, Saphenous, SPN, DPN, Tibial N. distributions. DP, PT 2+. BCR. DF, PF, EHL 5/5. No calf TTP. Assessment & Plan Assessment/Plan (1) Right femoral fracture: QUALIFIERS: Encounter type: initial encounter Femur location: intertrochanteric Fracture type: closed Fracture alignment: displaced Qualified Code(s): S72.141A - Displaced intertrochanteric fracture of right femur, initial encounter for closed fracture PLAN: POD# 2 s/p right femur CMN -Patient stable. Plan to continue to mobilize with therapy. Stable for discharge from my standpoint once placement precertification is obtained. - Pain control - Medicine following for medical management - PT/OT -weightbearing as tolerated right lower extremity - DVT PPX -Multimodal with Lovenox, SCDs, MARGO hose, early mobilization - Case management - D/C planning I will sign off at this time. Please not hesitate to call if any questions or concerns arise. Patient may shower postoperative day #5 if no drainage. Okay to leave incisions open to air after postoperative day #5. Continue Lovenox x 28 days upon discharge. Follow-up in 2 weeks for staple removal and x-rays. 03/23/24 1250 <Electronically signed by Tesfaye Coombs DO> Cosigner Signature (if applicable): CC: ~ Signed [facility] Work Phone: 1(331) 311-886705-09-2024 Progress note Author Tesfaye Barahona [facility] March 23, 2024 10:20am Note Date/Time March 23, 2024 10:20a m [facility] Medical Records Department [address] [place] [address] Progress Note - Hospitalist 03/23/24 1019 MR#: [id number] Acct: [id number] Name: HETAL SINGH Rep #:[id number] : 1950 73 From: Tesfaye vargas MD PCP: Dr. Josias Knowles MD Status:ADM IN Location: [facility] [id number] Subjective Subjective Doing well, pain is controlled Objective Data Objective Data Vital Signs: Vital Signs Temp Pulse Resp BP Pulse Ox O2 Del Method O2 Flow Rate 97.7 F L 62 16 106/49 L 99 Room Air 2 03/23/24 09:09 03/23/24 09:09 03/23/24 09:09 03/23/24 09:09 03/23/24 09:09 03/23/24 09:09 03/21/24 18:27 Oxygen Flow Rate (L/min) 2 Oxygen Delivery Method Room Air Weight: 136 lb 14.513 oz Body Mass Index (BMI) 22.1 Intake & Output: Intake and Output for Last 24 Hours 03/22/24 03/23/24 03/24/24 03:59 03:59 03:59 Intake Total 2759.16 / 2759.16 1697.42 / 1697.42 Output Total 1275 / 1275 650 / 650 Balance 1484.16 / 1484.16 1047.42 / 1047.42 Lab / Micro Data 03/23/24 06:43 03/23/24 06:43 Labs: Laboratory Results - last 24 hr 03/23/24 06:43: WBC 5.5, RBC 3.01 L, Hgb 8.7 L, Hct 27.9 L, MCV 92.7, MCH 28.9, MCHC 31.2 L, RDW Std Deviation 44.3 H, RDW Coeff of Charley 13.2, Plt Count 150, MPV9.7, Immature Gran % (Auto) 0.400, Neut % (Auto) 53.8, Lymph % (Auto) 31.2, Mellette% (Auto) 10.9 H, Eos % (Auto) 2.4, Baso % (Auto) 1.3 H, Absolute Neuts (auto) 3.0, Absolute Lymphs (auto) 1.71, Nucleated RBC % 0, Sodium 142, Potassium 4.2, Chloride 114 H, Carbon Dioxide 26.0, Anion Gap 2 L, BUN 11, Creatinine 0.82, Estim Creat Clear Calc 57.20, Est GFR (MDRD) Af Amer 88, Est GFR (MDRD) Non-Af 72, BUN/Creatinine Ratio 13.4, Glucose 93, Calcium 7.8 L Physical Exam Narrative General: Alert, Oriented x3, Cooperative, No apparent distress HEENT: Atraumatic, PERRLA, EOMI, Normocephalic Oral: Moist Mucosa Neck: Supple, No JVD Lungs: Diminished, Normal air movement, No rhonchi, No wheeze, No rales Cardiovascular: Regular rate, Regular Rhythm, Normal S1, Normal S2, No murmurs Abdomen: Soft, Non Tender, Non-Distended, No Hepato-splenomegaly Extremities: No edema, Capillary Refill Less than 3 Seconds Skin: No rashes, No breakdown, incision CDI Musculoskeletal: Tenderness to palpation of right hip Neurological: No focal neurological deficits, Motor Exam 5/5 strength throughout, Sensory exam intact to light touch and pain Psych/Mental Status: Normal Affect, Appropriate Assessment & Plan Assessment/Plan (1) Right femoral fracture: QUALIFIERS: Encounter type: initial encounter Femur location: intertrochanteric Fracture type: closed Fracture alignment: displaced Qualified Code(s): S72.141A - Displaced intertrochanteric fracture of right femur, initial encounter for closed fracture PLAN: Plan 1. Right intertrochanteric fracture secondary to mechanical fall status post repair 03/21/2024 ? Continue with pain management ? PT/OT ?Awaiting placement at SNF 2. Tobacco abuse ? Stable ? Discussed cessation ? Continue with nicotine patch DVT: Lovenox Charges/Coding Visit Charges Inpatient E&M: 17448 Subs Hosp L2 03/23/24 1020 <Electronically signed by Tesfaye Barahona MD> Cosigner Signature (if applicable): CC: ~ Signed [facility] Work Phone: 1(810) 419-236805-08-2024 Progress note Author Tesfaye Coombs [facility] March 22, 2024 5:21pm Note Date/Time March 22, 2024 5:21pm [facility] Medical Records Department [address] [place] [address] Progress Note - Orthopedic 03/22/24 1719 MR#: [id number] Acct: [id number] Name: HETAL SINGH Rep #:[id number] : 1950 73 From: Tesfaye zamora DO PCP: Dr. Josias Knowles MD Status:ADM IN Location: [place] [address] Subjective Subjective Patient seen and examined. Out of bed with therapy and nursing staff earlier today. She states her pain is currently well-controlled. She denies any fevers, chills, nausea or vomiting, chest pain or shortness of breath. Objective Data Objective Data Vital Signs: Vital Signs Temp Pulse Resp BP Pulse Ox O2 Del Method O2 Flow Rate 98.2 F 94 16 97/59 L 98 Room Air 2 03/22/24 15:31 03/22/24 17:18 03/22/24 15:31 03/22/24 17:18 03/22/24 15:31 03/22/24 15:31 03/21/24 18:27 Oxygen Flow Rate (L/min) 2 Oxygen Delivery Method Room Air Weight: 136 lb 14.513 oz Body Mass Index (BMI) 22.1 Intake & Output: Intake and Output for Last 24 Hours 03/20/24 03/21/24 03/22/24 23:59 23:59 23:59 Intake Total 500 / 500 2099.16 / 2099.16 1437.42 / 1437.42 Output Total 750 / 1075 875 / 875 Balance 500 / 500 1349.16 / 1024.16 562.42 / 562.42 Lab / Micro Data 03/22/24 07:10 03/22/24 07:10 Labs: Laboratory Results - last 24 hr 03/22/24 07:10: WBC 7.4, RBC 3.06 L, Hgb 8.9 L, Hct 27.6 L, MCV 90.2, MCH 29.1, MCHC 32.2, RDW Std Deviation 42.3, RDW Coeff of Charley 12.8, Plt Count 151, MPV 9.8, Immature Gran % (Auto) 0.700, Neut % (Auto) 81.0 H, Lymph % (Auto) 10.3 L, Mellette % (Auto) 7.9, Eos % (Auto) 0.0, Baso % (Auto) 0.1, Absolute Neuts (auto) 6.0, Absolute Lymphs (auto) 0.76 L, Nucleated RBC % 0, Sodium 138, Potassium 4.4, Chloride 111 H, Carbon Dioxide 24.0, Anion Gap 3 L, BUN 10, Creatinine 0.68, Estim Creat Clear Calc 58.63, Est GFR (MDRD) Af Amer 110, Est GFR (MDRD) Non-Af 91, BUN/Creatinine Ratio 14.8, Glucose 109 H, Calcium 8.2 L Radiography Diagnostic Testing: Radiology Impression Hip/Pelvis X-Ray 03/21/24 16:10 IMPRESSION: Fluoroscopy during open reduction internal fixation of fracture of the intertrochanteric femur. Electronically Signed: Santana Bowling MD at 19:45 EDT , Physical Exam Narrative General - A&Ox3, NAD. VSS/AF Right lower extremity -incisional dressing C/D/I. SILT Sural, Saphenous, SPN, DPN, Tibial N. distributions. DP, PT 2+. BCR. DF, PF, EHL 5/5. No calf TTP. Assessment & Plan Assessment/Plan (1) Right femoral fracture: QUALIFIERS: Encounter type: initial encounter Femur location: intertrochanteric Fracture type: closed Fracture alignment: displaced Qualified Code(s): S72.141A - Displaced intertrochanteric fracture of right femur, initial encounter for closed fracture PLAN: POD# 1 s/p right femur CMN -Patient stable. Plan to continue to mobilize with therapy. Anticipate SNF. - Pain control - Medicine following for medical management - PT/OT -weightbearing as tolerated right lower extremity - DVT PPX -Multimodal with Lovenox, SCDs, MARGO hose, early mobilization - Case management - D/C planning 03/22/24 1721 <Electronically signed by Tesfaye Coombs DO> Cosigner Signature (if applicable): CC: ~ Signed [facility] Work Phone: 1(902) 432-488705-08-2024 Progress note Author Tesfaye Barahona [facility] March 22, 2024 11:52am Note Date/Time March 22, 2024 11:52a m [facility] Medical Records Department [address] [place] [address] Progress Note - Hospitalist 03/22/24 1151 MR#: [id number] Acct: [id number] Name: HETAL SINGH [place] Rep #:[id number] : 1950 73 From: Tesfaye vargas MD PCP: Dr. Josias Knowles MD Status:ADM IN [facility] Subject[facility] Subjective Doing well, had surgery yesterday. Pain is somewhat controlled Objective Data Objective Data Vital Signs: Vital Signs Temp Pulse Resp BP Pulse Ox O2 Del Method O2 Flow Rate 97.9 F 65 18 94/51 L 96 Room Air 2 03/22/24 06:32 03/22/24 06:32 03/22/24 06:32 03/22/24 06:32 03/22/24 07:04 03/22/24 07:04 03/21/24 18:27 Oxygen Flow Rate (L/min) 2 Oxygen Delivery Method Room Air Weight: 136 lb 14.513 oz Body Mass Index (BMI) 22.1 Intake & Output: Intake and Output for Last 24 Hours 03/21/24 03/22/24 03/23/24 03:59 03:59 03:59 Intake Total 500 / 500 2759.16 / 2759.16 597.25 / 597.25 Output Total 0 / 0 1275 / 1275 Balance 500 / 500 1484.16 / 1484.16 597.25 / 597.25 Lab / Micro Data 03/22/24 07:10 03/22/24 07:10 Labs: Laboratory Results - last 24 hr 03/22/24 07:10: WBC 7.4, RBC 3.06 L, Hgb 8.9 L, Hct 27.6 L, MCV 90.2, MCH 29.1, MCHC 32.2, RDW Std Deviation 42.3, RDW Coeff of Charley 12.8, Plt Count 151, MPV 9.8, Immature Gran % (Auto) 0.700, Neut % (Auto) 81.0 H, Lymph % (Auto) 10.3 L, Mellette % (Auto) 7.9, Eos % (Auto) 0.0, Baso % (Auto) 0.1, Absolute Neuts (auto) 6.0, Absolute Lymphs (auto) 0.76 L, Nucleated RBC % 0, Sodium 138, Potassium 4.4, Chloride 111 H, Carbon Dioxide 24.0, Anion Gap 3 L, BUN 10, Creatinine 0.68, Estim Creat Clear Calc 58.63, Est GFR (MDRD) Af Amer 110, Est GFR (MDRD) Non-Af 91, BUN/Creatinine Ratio 14.8, Glucose 109 H, Calcium 8.2 L Radiography Diagnostic Testing: Radiology Impression Hip/Pelvis X-Ray 03/21/24 16:10 IMPRESSION: Fluoroscopy during open reduction internal fixation of fracture of the intertrochanteric femur. Electronically Signed: Santana Bowling MD at 19:45 EDT , Physical Exam Narrative General: Alert, Oriented x3, Cooperative, No apparent distress HEENT: Atraumatic, PERRLA, EOMI, Normocephalic Oral: Moist Mucosa Neck: Supple, No JVD Lungs: Diminished, Normal air movement, No rhonchi, No wheeze, No rales Cardiovascular: Regular rate, Regular Rhythm, Normal S1, Normal S2, No murmurs Abdomen: Soft, Non Tender, Non-Distended, No Hepato-splenomegaly Extremities: No edema, Capillary Refill Less than 3 Seconds Skin: No rashes, No breakdown, incision CDI Musculoskeletal: Tenderness to palpation of right hip Neurological: No focal neurological deficits, Motor Exam 5/5 strength throughout, Sensory exam intact to light touch and pain Psych/Mental Status: Normal Affect, Appropriate Assessment & Plan Assessment/Plan (1) Right femoral fracture: QUALIFIERS: Encounter type: initial encounter Femur location: intertrochanteric Fracture type: closed Fracture alignment: displaced Qualified Code(s): S72.141A - Displaced intertrochanteric fracture of right femur, initial encounter for closed fracture PLAN: Plan 1. Right intertrochanteric fracture secondary to mechanical fall status post repair 03/21/2024 ? Continue with pain management ? PT/OT ? May need placement at SNF 2. Tobacco abuse ? Stable ? Discussed cessation ? Continue with nicotine patch DVT: Lovenox Charges/Coding Visit Charges Inpatient E&M: 96338 Subs Hosp L2 03/22/24 1152 <Electronically signed by Tesfaye Barahona MD> Cosigner Signature (if applicable): CC: ~ Signed [facility] Work Phone: 1(377) 119-449005-07-2024 Procedure [facility] 03-21-2024 Progress note Author Tesfaye Barahona [facility] March 21, 2024 12:15pm Note Date/Time March 21, 2024 12:05p [facility] Medical Records Department [address] [place] [address] Progress Note - Hospitalist 03/21/24 1202 MR#: [id number] Acct: [id number] Name: HETAL SINGH Rep #:[id number] : 1950 73 From: Tesfaye vargas MD PCP: Dr. Josias Knowles MD Status:ADM IN Location: MS3 [id number] Subjective Subjective Doing well, no issues overnight. Right leg is externally rotated pain is controlled Objective Data Objective Data Vital Signs: Vital Signs Temp Pulse Resp BP Pulse Ox O2 Del Method 98.1 F 66 18 98/49 L 97 Room Air 03/21/24 11:39 03/21/24 11:39 03/21/24 11:39 03/21/24 11:39 03/21/24 11:39 03/21/24 11:39 Oxygen Delivery Method Room Air Weight: 136 lb 14.513 oz Body Mass Index (BMI) 22.1 Intake & Output: Intake and Output for Last 24 Hours 03/20/24 03/21/24 03/22/24 03:59 03:59 03:59 Intake Total 500 / 500 1879.16 / 1879.16 Output Total 0 / 0 450 / 450 Balance 500 / 500 1429.16 / 1429.16 Lab / Micro Data 03/21/24 06:30 03/21/24 06:30 Labs: Laboratory Results - last 24 hr 03/20/24 16:45: WBC 12.7 H, RBC 4.97, Hgb 14.2, Hct 44.0, MCV 88.5, MCH 28.6, MCHC 32.3, RDW Std Deviation 41.7, RDW Coeff of Charley 12.8, Plt Count 219, MPV 9.3, Sodium 137, Potassium 4.3, Chloride 105, Carbon Dioxide 29.0, Anion Gap 3 L, BUN 15, Creatinine 0.83, Estim Creat Clear Calc 47.55, Est GFR (MDRD) Af Amer 86, Est GFR (MDRD) Non-Af 71, BUN/Creatinine Ratio 18.0, Glucose 125 H, Calcium 9.2 03/21/24 06:30: WBC 6.4, RBC 3.75 L, Hgb 10.7 L, Hct 33.9 L, MCV 90.4, MCH 28.5,MCHC 31.6 L, RDW Std Deviation 42.6, RDW Coeff of Charley 13.1, Plt Count 162, MPV 9.5, Immature Gran % (Auto) 0.600, Neut % (Auto) 63.6, Lymph % (Auto) 23.4, Mellette% (Auto) 10.1 H, Eos % (Auto) 1.4, Baso % (Auto) 0.9, Absolute Neuts (auto) 4.1,Absolute Lymphs (auto) 1.51, Nucleated RBC % 0, Sodium 139, Potassium 4.1, Chloride 111 H, Carbon Dioxide 27.0, Anion Gap 1 L, BUN 12, Creatinine 0.79, Estim Creat Clear Calc 58.63, Est GFR (MDRD) Af Amer 92, Est GFR (MDRD) Non-Af 76, BUN/Creatinine Ratio 15.2, Glucose 101, Calcium 7.8 L, Vitamin D 25-Hydroxy 16.7, Blood Type A NEGATIVE, Antibody Screen NEGATIVE Radiography Diagnostic Testing: Radiology Impression Elbow X-Ray 03/20/24 16:43 IMPRESSION: Normal x-ray examination of the elbow. Electronically Signed: Rakesh Elizabeth MD at 18:23 EDT Reading Location ID and State: [address] [place] [address] Tel [phone], Service support , Pelvis X-Ray 03/20/24 16:43 IMPRESSION: Acute fracture of the right hip Electronically Signed: Rakesh Elizabeth MD at 18:27 EDT Reading Location ID and State: [address] [place] [address] Tel [phone], Service support , Femur X-Ray 03/20/24 17:09 IMPRESSION: Acute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 Delivery Method Room Air Room Air Room Air 03/20/24 18:17 Temperature 98.2 F Temperature Source Pulse Rate 81 Respiratory Rate 16 Respiratory Effort Respiratory Depth Respiratory Pattern Blood Pressure 118/86 H Blood Pressure Mean 96 Pulse Ox 97 Oxygen Delivery Method MDM MDM MDM Narrative Medical decision making narrative: HISTORY OF PRESENT ILLNESS: 73-year-old female presents a mechanical fall injuring her right hip and right elbow. Notes mechanical fall. Denies any syncope. Denies any head trauma or loss of consciousness. REVIEW OF SYSTEMS: Pertinent positives: Right elbow pain, right hip pain Pertinent negatives: Head trauma, loss of consciousness PHYSICAL EXAM: Nursing triage notes reviewed, Vital signs reviewed Primary Survey Airway: Intact Breathing: Bilateral breath sounds Circulation: Palpable bilateral femorals, Palpable bilateral radial, Palpable bilateral DP and Palpable bilateral PT Disability / Spine precautions GCS Score: Eye Openin Verbal Response: 5 Motor Response: 6 Secondary Survey Constitutional: Please see MDM Head: Atraumatic, Midface stable, NO jaw malocclusion, No Cephalohematoma, and No Lacerations noted Eye: Pupils equal round and reactive to light, Extraocular muscles intact and Noperiorbital ecchymosis or stepoff, no evidence of entrapment ENT: Oropharynx clear, no lacerations, no hemotympanum, no raccoon eyes or pantoja sign Cervical spine / Neck: No cervical spine bony tenderness, crepitance, or stepoffdeformity Trachea midline Lungs: Clear to auscultation, No asymmetric rise and No crepitus, no flail chest Cardiac: Regular rate and rhythm and No murmurs Abdomen: Soft, Nontender and No rebound Pelvis: Pelvis stable to compression : No evidence of genital injury Back: No midline bony tenderness to thoracic/lumbar/sacral spines Neuro: At baseline, intact strength and sensation in bilateral upper and lower extremities. 2+ patellar reflexes bilaterally. Extremities: Right lower extremity shortened externally rotated, TTP over right greater trochanter Psych: Normal affect Nursing triage notes reviewed, Vital signs reviewed MEDICAL DECISION MAKING: Chief Complaint: Right hip, right elbow pain External records reviewed: Prior imaging reviewed: X-ray of the pelvis reviewedfr2019 showed orthopedic hardware in the pelvis Factors affecting care: COPD, peripheral vascular disease Social determinants of health: Tobacco abuse History obtained from others: Significant other Consults: no internal medicine (Dr. Bowens), orthopedics (Dr. Coombs) [facility] Narrative: Patient was hemodynamically stable, afebrile and nontoxic-appearing. Primary secondary trauma survey concerning for right hip fracture dislocation I considered the following differential diagnosis: Right hip fracture dislocation, right elbow fracture dislocation I obtained images to rule out bony abnormalities. I treat the patient with IV fluids, Toradol morphine and Zofran for symptomatic control. ALL IMAGES (IF OBTAINED) HAVE BEEN PERSONALLY REVIEWED AND INTERPRETED BY MYSELF. EKG with normal sinus rhythm, normal axis, intervals, no STEMI X-ray of the patient's femur, pelvis shows evidence of a right intertrochantericfracture CBC with leukocytosis, no anemia or thrombocytopenia BMP without evidence of significant electrolyte abnormalities, no anion gap, no acute kidney injury. The synthesis of the patient's history, physical exam, labs images suggest righthip fracture. Discussed with orthopedics recommended keep the patient here in [facility]. Discussed with hospitalist. The patient and/or family, caregivers express understanding. The patient and/orfamily, caregivers agrees with the plan. Shared decision making: I will have a discussion with the patient and or visitors regarding risk/benefits of further testing or admission. They will be made aware of of the risk/benefits inherent in this decision they will be given the opportunity to voice understanding. Total critical care time today provided was at least 0 minutes. This excludes separately billable procedures. Critical care time (if documented) is secondary to the patient having high probability of clinically significant/life threatening deterioration in the patient's condition which required my urgent intervention. Impression: 1. Right hip fracture 2. Leukocytosis Dispo: Admit This note was generated with Vivisimo dictation software. It may contain incorrectwords, spelling, and punctuation that were not noted in review of the chart prior to signing. Lab Data Labs: Laboratory Results - last 24 hr 03/20/24 16:45 WBC 12.7 H RBC 4.97 Hgb 14.2 Hct 44.0 MCV 88.5 MCH 28.6 MCHC 32.3 RDW Std Deviation 41.7 RDW Coeff of Charley 12.8 Plt Count 219 MPV 9.3 Sodium 137 Potassium 4.3 Chloride 105 Carbon Dioxide 29.0 Anion Gap 3 L BUN 15 Creatinine 0.83 Estim Creat Clear Calc 47.55 Est GFR (MDRD) Af Amer 86 Est GFR (MDRD) Non-Af 71 BUN/Creatinine Ratio 18.0 Glucose 125 H Calcium 9.2 Discharge Plan Triage Chief Complaint: Fall ED Provider: Pascual Fox Dx/Rx/DC Orders Prescriptions: No Action doxepin 50 mg capsule 50 mg PO QHS Primary Care Provider: Josias Knowles Referrals: Josias Knowles MD [Primary Care Provider] - What to do if you have Problems For any increased pain, shortness of breath, bleeding, nausea or vomiting, chestpain, or any unexpected problems, contact your Primary Care Provider. Call [facility] ([phone]) or report to the closest Emergency Room. Call 911 if necessary. 03/20/241820 <Electronically signed by Pascual Fox DO> Cosigner Signature (if applicable): CC: Dr. Josias Knowles MD ~ Signed [facility] Work Phone: Evaluation noteNo assessment information available [facility] Work Phone: Evaluation note* Diagnosis Onset Date Resolution Status Right femoral fracture acute [facility] Work Phone: Evaluation note* Diagnosis Onset Date Resolution Status Admit Date Dermoid cyst acute July 2:47pm [facility] Work Phone: Hospital Discharge instructionsAdditional Instructions (your hip surgeon was Dr. Coombs) You also have a dermoid ovarian cyst on the right, these generally are not cancerous, just follow-up with your regular doctor at next visit regarding this.[facility] Work Phone: Reason for referral (narrative)No reason for referral information [facility] Work Phone: Family History No Family History Records Found Relationship Condition Age at Onset Recorded Date/T dee dee father Disorder of lung Unknown mother Malignant neoplasm Unknown sister Malignant neoplasm Unknown sister Malignant neoplasm of uterus Unknown Relationship Condition Age at Onset Recorded Date/T dee dee father Disorder of lung Unknown Malignant neoplasm Unknown mother Malignant neoplasm Unknown sister Malignant neoplasm Unknown sister Malignant neoplasm of uterus Unknown Advance Directives No Advanced Directives Records Found Advance Directive Response Recorded Date/ Time Advance Directives No September 19, 2015 4:35pm Living Will No March 25, 2021 8 :25pm Power of Director Plans No March 25, 2021 8:25pm Advance Directive Response Recorded Date/ Time Advance Directives No September 19, 2015 3:35pm Living Will No March 25, 2021 7 :25pm Power of Director Plans No March 25, 2021 7:25pm Advance Directive Response Recorded Date/ Time Advance Directives No September 19, 2015 4:35pm Living Will No March 20, 2024 3: 54pm Power of Director Plans Yes March 20, 2024 3:54pm Name of Medical Power of Director Plans Kandy Crowder March 20, 2024 3:54pm Advance Directive Response Recorded Date/ Time Name of Medical Power of Director Plans Kandy Crowder March 20, 2024 7:24pm Advance Directives No September 19, 2015 4:35pm Living Will No March 20, 2024 7: 24pm Power of Director Plans Yes March 20, 2024 7:24pm Advance Directive Response Recorded Date/ Time Do you have a Healthcare Power of Director Plans? No May 19, 2025 1:31pm Advance Directives No September 19, 2015 4:35pm Chief Complaint and Reason for Visit Chief Complaint EORDER EORDER- 24 HR URINE Chief Complaint RIGHT HIP FRACTURE D UE TO MECHANICAL FALL Reason for Visit Right femoral fractu re Chief Complaint RIGHT HIP FRACTURE D UE TO MECHANICAL FALL RIGHT HIP FRACTURE DUE TO MECHANICAL FALL RIGHT HIP FRACTURE DUE TO MECHANICAL FALL RIGHT HIP FRACTURE DUE TO MECHANICAL FALL Reason for Visit Right femoral fractu re Chief Complaint Admit Date RT HIP May 19, 2025 12:15 pm Chief Complaint Admit Date RT HIP May 19, 2025 12:15 pm Cyst *urgent per triage July 23, 2 025 2:47pm Reason for Visit Admit Date Dermoid cyst July 23, 2025 2:47pm Summary Purpose Additional Source Comments Goals (unrecognized section and content) Goals may be documented in a n alternate sectionGoals may be documented in an alternate sectionGoals may be documented in an alternate sectionGoals may be documented in an alternate sectionGoals may be documented in an alternate sectionGoals may be documented in an alternate section Care Teams (unrecognized sec tion and content) Team Status: Active Member Role Status Dates Dr. Josias Knowles MD Family Provider Active Dr. Josias Knowles MD Primary Care Provider Active Team Status: Active Member Role Status Dates Dr. Josias Knowles MD Primary Care Provider Active Dr. Pascual Fox DO Emergency Provider Active Dr. Joi Bowens MD Admit Provider, Attending Prov ider Active Team Status: Active Member Role Status Dates Dr. Josias Knowles MD Primary Care Provider Active Dr. Pascual Fox , Emergency Provider Active Dr. Joi Bowens MD Admit Provider, Other Provider Active Dr. Tesfaye Coombs DO Other Provider Active Dr. Tesfaye Barahona MD Attending Provider, Other Provider Active Team Status: Active Member Role Status Dates Dr. Josias Knowles MD Primary Care Provider Active Dr. Pascual Fox DO Emergency Provider Active Dr. Joi Bowens MD Admit Provider, Other Provider Active Dr. Tesfaye Barahona MD Attending Provider, Other Provider Active Dr. Tesfaye Coombs DO Other Provider Active Team Status: Inactive Member Role Status Dates Dr. Josias Knowles MD Primary Care Provider Active Dr. Pascual Fox DO Emergency Provider Active Dr. Joi Bowens MD Admit Provider, Other Provider Active Dr. Tesfaye Barahona MD Attending Provider Active Dr. Tesfaye Coombs DO Other Provider Active Team Status: Active Member Role/Relationship Status Dates Dr. Josias Knowles MD Primary Care Provider Active Team Status: Inactive Member Role/Relationship Status Dates Dr. Josias Knowles MD Primary Care Provider Active Start: May 19, 2025 End: May 19, 2025 Dr. Juan Francisco Taylor MD Emergency Provider Active Start: May 19, 2025 End: May 19, 2025 Team Status: Inactive Member Role/Relationship Status Dates Dr. Josias Knowles MD Primary Care Provider Active Start: May 19, 2025 End: May 19, 2025 Dr. Juan Francisco Taylor MD Attending Provider Active Start: May 19, 2025 End: May 19, 2025 Dr. Juan Francisco Taylor MD Emergency Provider Active Start: May 19, 2025 End: May 19, 2025 Team Status: Inactive Member Role/Relationship Status Dates Dr. Josias Knowles MD Primary Care Provider Active Start: July 23, 2025 End: July 23, 2025 Dr. Josias Knowles MD Referring Provider Active St art: July 23, 2025 End: July 23, 2025 Dr. Jemima Gonzalez MD Attending Provider Active Start: July 23, 2025 End: July 23, 2025 INFORMATION SOURCE (unrecogn ized section and content) DATE CREATED AUTHOR 07/29/2025 [facility] FOR RECORDS PERTAINING TO PATIENTS WHO ARE OR HAVE BEEN ENROLLED IN A CHEMICAL DEPENDENCY/SUBSTANCEABUSE PROGRAM, SOME INFORMATION MAY BE OMITTED. This clinical summary was aggregated from multiple sources. Caution should be exercised in using it in the provision of clinical care. This summary normalizes information from multiple sources, and as a consequence, information in this document may materially change the coding, format and clinical context of patient data. In addition, data may be omitted in some cases. CLINICAL DECISIONS SHOULD BE BASED ON THE PRIMARY CLINICAL RECORDS. [facility]. provides no warranty or guarantee of the accuracy or completeness of information in this document.
== END | disposition home or self-care (01) ==
LOC: US 15:22
PROVIDERS: PCP Family Medicine; Referring Provider Obstetrics & Gynecology; Visit Provider Obstetrics & Gynecology
DX: D36.9 Benign neoplasm, unspecified site (principal)
CPT/HCPCS: 76830; 76856

== ENCOUNTER 2025-09-18 12:22 | Day surgery (SDC) | payer MEDICARE, SELFPAY ==
[2025-09-05 16:50] LABS: Hematocrit 41.3 % (37-47); Hemoglobin 13.7 g/dL (12.0-15.0); Immature Granulocytes Count 0.020 X10^3/uL (0.0-0.0); Mean Corp Hgb Conc 33.2 g/dL (32-36); Mean Corpuscular Volume 89.8 fL (81-99); Mean Platelet Vol. 9.9 fl (6.2-12.0); NRBC Flagged by Analyzer 0 % (0-5); Platelet Count 167 K/mm3 (150-450); RBC Distribution Width CV 13.1 % (11.6-14.6); RBC Distribution Width SD 42.9 fl (35.1-43.9); Red Blood Count 4.60 M/mm3 (4.2-5.4); White Blood Count 5.3 K/mm3 (4.4-11.0)
[2025-09-05 17:20] LABS: AST(SGOT) 20 U/L (<=31); Alanine Aminotransfer ALT/SGPT 12 U/L (<=34); Albumin, Serum 4.2 g/dL (3.4-4.8); Alkaline Phosphatase 69 U/L (35-104); Anion Gap 10 (5-15); BUN 20 mg/dL (4-19); BUN/Creat Ratio 29.7 RATIO (10-20); Calcium,Total 9.4 mg/dL (7.6-11.0); Carbon Dioxide 24.5 mmol/L (21.0-32.0); Chloride 105 mmol/L (98-108); Globulin 2.6 g/dL (2.2-4.2); Glucose 99 mg/dL (70-99); Potassium 3.9 mmol/L (3.3-5.1)
[2025-09-18] VITALS (12 sets, daily range): BP systolic 122–157; BP diastolic 58–79; PULSE 66–93; RESP 12–16; TEMP 36.7–37.2; O2SAT 94–100; BMI 17.8
[2025-09-18] MEDS: Lactated Ringers 1,000 ML 15 ML IV (13:02)
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
[2025-09-18] MEDS: Lidocaine 1% (5 ml sdv) 5 ML Vial IV (13:34)
[2025-09-18] MEDS: fentaNYL 100 MCG/2 ML Ampul IV (13:49)
--- NOTE | 2025-09-18 14:00 | FALS_PTH ---
PATIENT: HETAL SINGH LOC: [facility] – [place] U#:[id number] AGE/SX: 74/F ROOM: RE09/18/[address]: Dr. Jemima Gonzalez MD : 1950 BED: DIS: 09/18/2025 SPEC #: [id number] RECD: 09/18/25 14:38 STATUS: LUCERO REQ #: [id number] SILVIA: 09/18/25 14:[address]: Jemima Gonzalez DEPT: SURGICAL PATHOLOGY RECD BY: Javi Solis ENTERED: 09/18/25 14:54 SP TYPE: FALL TUBES OTHR DR: Dr. Josias Knowles MD Tissues: A - Fallopian tube Procedures: Decalcification bone/plaque Surgery Specimen Level IV Surgery Specimen Level V HEADER OPERATION: Laparoscopic, salpingo-oopherectomy, cytology washings PRE-OP DIAGNOSIS: Dermoid cyst TISSUE SUBMITTED: A- Bilateral fallopian tubes and ovaries MICROSCOPIC DIAGNOSIS A. Fallopian tubes and ovaries, laparoscopic salpingo-oophorectomy: - Fallopian tube #1 with small cortical inclusion cyst; with associated calcified nodule consistent with phlebolith - see note. 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 Note: The small cortical cyst associated with fallopian tube #1 may represent a portion of ovarian stroma. An intact ovary is not identified in this portion of the specimen. COMMENT Selected slides/images were reviewed in intradepartmental consultation by Dr Anusha Mohamud (VP RHEUMATOLOGY pathology division, [facility]). Additional case: see [id number]. MICROSCOPIC DESCRIPTION Slides are reviewed. GROSS DESCRIPTION A. Received in formalin labeled with the patient's name and date of . Designated as "right and left fallopian tubes and ovaries" are 2 undesignated fallopian tubes with associated ovary, admixed with free-floating,, yellow grumous material, as follows: Fallopian tube #1: Newton-pink, fimbriated, 9.2 x 0.4 cm. There is an attached 1.2 g, 1.3 x 1.0 x 0.9 cm calcified, apparent ovary. Sectioning of the apparent ovary reveals a markedly calcified, gritty cut surfaces (possible phlebolith). Fallopian tube #2: Newton-pink, fimbriated and membranous, 6.3 x 0.3 cm, devoid of an identifiable lumen. There is an attached, 12.6 g previously disrupted newton-white to pink-purple, multiloculated cyst containing yellow grumous material and dark brown strands of hair. The cyst wall is somewhat granular and wrinkled, devoid of identifiable excrescences. Minimal solid white ovarian parenchyma is identified. Stranding Machine Operator sections are submitted, following decalcification as follows: A1: Fallopian tube #1A2: Calcified ovary (versus phlebolith), following decalcificationA3: Fallopian tube #2A4-A5: Cyst wall and minimal ovarian parenchyma [place] 09/18/2025 CPT:16767,[id number]
--- NOTE | 2025-09-18 14:00 | FLU_PTH ---
PATIENT: HETAL SINGH LOC: [facility] – [place] U#:[id number] AGE/SX: 74/F ROOM: RE09/18/[address]: Dr. Jemima Gonzalez MD : 1950 BED: DIS: 09/18/2025 SPEC #: [id number] RECD: 09/18/25 14:38 STATUS: LUCERO REQ #: [id number] SILVIA: 09/18/25 14:[address]: Jemima Gonzalez DEPT: CYTOLOGY RECD BY: Javi Solis ENTERED: 09/19/25 13:47 SP TYPE: Fluid OTHR DR: Dr. Josias Knowles MD Tissues: A - Pelvis, NOS Procedures: Special Stain Group II Surgery Specimen Level IV Cytospin Fluid HEADER OPERATION: Cytology washings PRE-OP DIAGNOSIS: Dermoid cyst TISSUE SUBMITTED: A- Cytology washings DIAGNOSIS CYTOLOGY A. Body fluid, "cytology washings" (cytospin, cellblock): - No malignant cells identified. COMMENT Additional case: see also [id number] CYTOLOGY STUDY Slides are reviewed. CYTOLOGY GROSS A. Received is 25 ml of hazy-colorless fluid labeled with the patient's name and and designated per the requisition as "Cytology washings." Submitted for cytology and cell block preparation. 09/19/2025 CPT: [id number]
--- NOTE | 2025-09-18 14:41 | PCM.POST.ANE ---
Anesthesia: Postop Eval I Current Vital Signs Temperature: 98.1 F Pulse Rate: 84 Blood Pressure: 151/77 Respiratory Rate: 16 Pulse Ox: 100 Oxygen Delivery Method: Room Air Assessment Airway patent: Yes Spontaneous unlabored respirations: Yes Mental status: Awake and Calm nausea: No Vomiting: No Anesthesia Complication: No Fluid Hydration Crystalloid volume administer (ml): 800 Total IV fluid infused: 800 Progress Note Anesthesia document: Postop Eval 1 completed: Yes
--- NOTE | 2025-09-18 14:54 | DCINST_ITS ---
Discharge Instructions DC O2, CPAP, BIPAP needs Home O2 Discharge instructions: No Dressing / Incision Discharge Activity: Return to Normal Activity, May Not Drive ( while taking narcotic pain meds, when pain free), May Shower and May Take a Tub Bath (in 7 days) May resume sexual activity in: 1 week Weight Bearing Status: Full weight bearing Dressing / Incision Call your doctor if your incision/area has: Continuous Slow Oozing, Sudden Increased Bleeding, Increased Pain/ Swelling, Increased Redness and Foul Smelling Discharge Call your doctor if you observe: Fever of 101 or Higher, Using more than 1 pad per hour, Shortness of breath, Chest pain and Uncontrolled pain Suture Line Care: Avoid Pulling/Pushing and Avoid Pinching/Bending Remove Dressing in: 1 week (if present) Cleanse incision/area with: Soap & Water and Keep Dressing Clean & Dry Follow Up Care When: Call to make an appointment with your doctor for a fu/incision check in 1- 2 weeks. Test Results: Test results from this visit will be discussed in further detail at your follow- up appointment, if applicable. Discharge Plan Admission Attending Provider: Jemima Gonzalez Primary Care Provider: Josias Knowles Instructions Print Language: Armenian Discharge Orders/Prescriptions Prescriptions: New oxycodone-acetaminophen [Percocet] 5-325 mg tablet 1 tab PO Q4H PRN (Reason: pain) 7 Days Qty: 20 0RF naproxen 500 mg tablet 500 mg PO BID PRN PRN (Reason: Pain) Qty: 30 1RF No Action fluoxetine 20 mg capsule 20 mg PO QDAY acetaminophen 500 mg Tablet 1,000 mg PO Q8 PRN (Reason: pain) Qty: 1 0RF calcium carbonate 200 mg calcium (500 mg) Tablet,Chewable 500 mg PO BIDCM Qty: 60 0RF Rx Instructions: Calcium is better absorbed if taken with a meal calcitriol 0.25 mcg capsule 0.25 mcg PO DAILY Qty: 30 0RF oxybutynin chloride 10 mg tablet extended release 24hr 10 mg PO DAILY olanzapine 10 mg tablet 5 - 10 mg PO QHS Referrals / Follow Up: Josias Knowles MD [Primary Care Provider, Family Practice] Disposition Disposition (needs filled in before D/C Order can be placed): Home, Self Care
--- NOTE | 2025-09-18 14:54 | PCM.OPRPT ---
Multi Select Codes Urinary/Genital Urinary/Genital CPT Codes: 31052 Laproscopic BS/O Operative Report (Standard) Operative Information Date of Procedure: 09/19/25 Pre-Operative Diagnosis: ovarian cyst Post-Operative Diagnosis: same Surgery/Procedure Performed: laparoscopic bso washings assembly detailer: Yes Tanning Drum Operator: Liane Marin Tasks completed by wheelchair van operator first responder: Opening & closing, Altering tissue and Insert Trochanter Additional hr administrative assistant?: No Type of Anesthesia: General RN Documented Start/Stop Times: Operation Date: 09/18/25 14:00 Case Time Into Pre-Op 09/18/25 12:28 Anesthesia Start 09/18/25 13:27 Into Room 09/18/25 13:27 Procedure Start 09/18/25 13:53 Procedure End 09/18/25 14:29 Anesthesia End 09/18/25 14:34 Out of Room 09/18/25 14:34 Into Recovery 09/18/25 14:36 Into Phase II Recovery 09/18/25 15:45 Out of Recovery 09/18/25 15:45 Out of Phase II 09/18/25 16:23 Procedure Start Time: 13:53 Procedure Stop Time: 14:29 Select all DRAINS/GRAFTS/IMPLANTS that apply: None Estimated Blood Loss: 50 Specimen collected: Yes Description of specimen(s) removed: tubes ovaries appears to be right dermoid cyst Description of surgery: Patient was taken in the operating room and was placed under general anesthesia was prepped and draped in normal sterile fashion in the dorsal lithotomy position. Bladder was drained of clear urine and SCDs were on preoperatively. Uterus was severely stenotic so a sponge stick was placed in the vagina. Attention was then paid to the abdominal portion of the procedure and the umbilicus was elevated with towel clamps and injected with Marcaine and after a 5 mm incision was made and the Veress needle was entered into the abdomen confirmed to be intra-abdominal with a low opening pressure of less than 5 mmHg. Abdomen was insufflated with CO2 gas and a 5 mm optical trocar was placed under direct visualization. Left 12 and right 5mm lower quadrant ports were placed under direct visualization. Uterus was well visualized and upon inspection of the pelvis a large right ovarian cyst was seen. bilateral IP ligaments were transected with the ligasure device, following up to the level of the uterine ligament of the ovary, and the tube and ligament were transected, removing bilateral tubes and ovaries. they were placed in a bag and removed through the left lower quadrant. right ovary was draine din the bag with no spillage and sebaceous material and hair was seen, consistent with a dermoid cyst. Excellent hemostasis was noted in the pelvis. three sutures were thrown to close the fascia. Liver and upper abdomen were visualized notably within normal limits and no other gross abnormalities were seen in the abdomen. All instruments removed from the abdomen after gas was desufflated. Port sites were closed with 3-0 Monocryl Steri's and op sites were applied. All instruments removed from the vagina and patient was awoken and taken recovery in stable condition. Surgical Findings: enlarged right ovary suspicious for dermoid cyst Complications Complications: No
--- NOTE | 2025-09-18 15:57 | POSTOPAN2_ITS ---
Anesthesia Postop Eval I Sum Postop Eval Completion status Anesthesia document: Postop Eval 1 completed: Yes Anesthesia Postop Eval I Summary Anesthesia Postop Eval I Summary: Anesthesia Postop Eval I: Assessment Summary Airway patent Yes 09/18/25 14:42 [email or web address] Spontaneous unlabored Yes 09/18/25 14:42 TICKET [email or web address] respirations Mental status Awake,Calm 09/18/25 14:42 TICKET AGENT.[email or web address] nausea No 09/18/25 14:42 TICKET AGENT.[email or web address] Vomiting No 09/18/25 14:42 TICKET AGENT.[email or web address] Anesthesia Postop Eval I: Fluid Summary Crystalloid volume administer 800 09/18/25 14:42 [email or web address] [email or web address] (ml) Colloids volume administered ( ml) Blood Product volume administered (ml) Total IV fluid infused 800 09/18/25 14:42 [email or web address] [email or web address].[email or web address] Anesthesia Postop Eval I: Summary Notes Anesthesia Complication No 09/18/25 14:42 [email or web address] [email or web address] Anesthesia Complication Comment: Post-operative progress note Anesthesia: Postop Eval II Evaluation Mental status: Awake and Calm Pain Level: 0 nausea: No Vomiting: No Complications Anesthesia Complication: No
--- NOTE | 2025-09-18 15:57 | PCM.POSTANE2 ---
Anesthesia Postop Eval I Sum Postop Eval Completion status Anesthesia document: Postop Eval 1 completed: Yes Anesthesia Postop Eval I Summary Anesthesia Postop Eval I Summary: Anesthesia Postop Eval I: Assessment Summary Airway patent Yes 09/18/25 14:42 SLOT [email or web address] Spontaneous unlabored Yes 09/18/25 14:42 SLOT TAG [email or web address].[email or web address] respirations Mental status Awake,Calm 09/18/25 14:42 SLOT TAG INSERTER.[email or web address] nausea No 09/18/25 14:42 SLOT TAG INSERTER.[email or web address] Vomiting No 09/18/25 14:42 SLOT TAG INSERTER.[email or web address] Anesthesia Postop Eval I: Fluid Summary Crystalloid volume administer 800 09/18/25 14:42 SLOT [email or web address].[email or web address] (ml) Colloids volume administered ( ml) Blood Product volume administered (ml) Total IV fluid infused 800 09/18/25 14:42 SLOT TAG [email or web address].[email or web address] Anesthesia Postop Eval I: Summary Notes Anesthesia Complication No 09/18/25 14:42 SLOT TAG [email or web address].[email or web address] Anesthesia Complication Comment: Post-operative progress note Anesthesia: Postop Eval II Evaluation Mental status: Awake and Calm Pain Level: 0 nausea: No Vomiting: No Complications Anesthesia Complication: No
[2025-09-18] MEDS: HYDROcodone Bitartrate/Apap 5/325 Tablet PO (16:03)
[2025-09-24 06:00] LABS: Cytology, Body Fluid / CSF SEE PATHOLOGY REPORT
== END 2025-09-18 16:24 | disposition home or self-care (01) ==
LOC: SDC 12:23 → AC 12:24
PROVIDERS: Anesthesiology; PCP Family Medicine; Referring Provider Obstetrics & Gynecology; Visit Provider Obstetrics & Gynecology
DX: D39.10 Neoplasm of uncertain behavior of unspecified ovary (principal); J44.9 Chronic obstructive pulmonary disease, unspecified; Z87.891 Personal history of nicotine dependence; N83.8 Other noninflammatory disorders of ovary, fallopian tube and broad ligament; D27.9 Benign neoplasm of unspecified ovary
CPT/HCPCS: 58661; 00840; 36415; 80053; 84443; 85025; 86850; 86900; 86901; 88108; 88302; 88305; 88307; 88311; 88313; 93005; J2405